=== PATIENT | male | born 1985 | race Caucasian/White ===

== ENCOUNTER 2019-10-06 14:15 | Inpatient (IN) | payer OTHER ==
--- NOTE | 2019-10-06 14:48 | BHS.RME ---
Substance Use & Tx History - Substance Use History Alcohol Substance amount: 2-3 pints beer Frequency of use: Daily Substance route: Oral Date of Last Use: 10/06/19 Cocaine-Crack Substance amount: $60 Frequency of use: Daily Substance route: Smoking Date of Last Use: 10/05/19 Xanax Substance amount: 4-6 mg Frequency of use: Daily Substance route: Oral Date of Last Use: 10/05/19 Physical/Psych/Mental Status - Behavior General Behavior: Increased activity (restlessness, agitation) Eye Contact: Normal - Cooperativeness Cooperativeness: Cooperative - Thinking Thought Processes: Tight, Logical, Goal Directed - Physical Health Problems Is patient presently having any pain?: No Does patient presently have any injuries (include location): No Does patient currently have a fever: No Is patient : No CIWA Nausea/Vomitin Muscle Tremors: 2 Anxiety: 4-Mod. Anxious/Guarded Agitation: 4-Moderately Restless Paroxysmal Sweats: 3 Orientation: 1-Uncertain about Date Tacttile Disturbances: 0-None Auditory Disturbances: 0-None Visual Disturbances: 0-None Headache: 2-Mild CIWA-Ar Total Score: 19
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
[2019-10-06 15:43] VITALS: BMI 32.6
[2019-10-06] MEDS ORDERED: METHOCARBAMOL 500 MG TABLET PO PRN (15:43)
[2019-10-06] MEDS ORDERED: NICOTINE POLACRILEX 2 MG GUM BUC PRN (15:43)
[2019-10-06] MEDS ORDERED: ACETAMINOPHEN 325 MG TABLET (FP) PO PRN ×2 (15:43)
[2019-10-06] MEDS ORDERED: BISMUTH SUBSALICYLATE 524 MG/30 ML UD PO PRN (15:43)
[2019-10-06] MEDS ORDERED: chlordiazePOXIDE HCL 25 MG CAPSULE PO PRN (15:43)
[2019-10-06] MEDS ORDERED: MAGNESIUM HYDROX 2400MG/30ML ORAL SUSPENSION 30 ML CUP PO PRN (15:43)
[2019-10-06] MEDS ORDERED: MENTHOL/PHENOL 1 EACH UD MM PRN (15:43)
[2019-10-06] MEDS ORDERED: MAGNESIUM CITRATE 300 ML BOTTLE PO PRN (15:43)
[2019-10-06] MEDS ORDERED: ONDANSETRON *ODT* 4 MG TABLET SL ONE (15:43)
[2019-10-06] MEDS: chlordiazePOXIDE HCL 25 MG CAPSULE PO SCH ×2 (17:28→22:20)
[2019-10-06] MEDS: PRENATAL VITAMINS W/ FOLIC ACID TABLET (FP) PO SCH (17:28)
[2019-10-06] MEDS: NICOTINE 7 MG/24 HOURS TOPICAL PATCH TD SCH (17:32)
[2019-10-06] MEDS: hydrOXYzine PAMOATE 25 MG CAPSULE (FP) PO SCH ×2 (18:10→22:43)
[2019-10-06] MEDS: ALBUTEROL SO4 HFA INHALER IH PRN (19:37)
[2019-10-06] MEDS: levETIRAcetam 500 MG TABLET (FP) PO SCH (22:20)
[2019-10-06] MEDS: DIVALPROEX SODIUM 500 MG TABLET E.C. PO SCH (22:20)
[2019-10-06] MEDS: MELATONIN 5 MG TABLETS PO SCH (22:20)
[2019-10-06] MEDS: THIAMINE HCL 100 MG TABLET (FP) PO SCH (22:20)
[2019-10-07] MEDS: hydrOXYzine PAMOATE 25 MG CAPSULE (FP) PO SCH (05:27)
[2019-10-07] MEDS: chlordiazePOXIDE HCL 25 MG CAPSULE PO SCH ×4 (05:27→22:12)
[2019-10-07] MEDS ORDERED: METHADONE HCL 10 MG TABLET PO ONE (09:02)
[2019-10-07] MEDS ORDERED: hydrOXYzine PAMOATE 25 MG CAPSULE (FP) PO PRN (09:02)
[2019-10-07] MEDS ORDERED: METHADONE 80 MG, METHADONE 30 MG PO ONE (09:45)
[2019-10-07] MEDS ORDERED: METHADONE HCL 10 MG TABLET ONE (09:58)
[2019-10-07] MEDS ORDERED: METHADONE HCL 40 MG DISPERSABLE TABLET ONE (09:59)
--- NOTE | 2019-10-07 10:27 | PN ---
S CIWA - CIWA Score Nausea/Vomitin-No Nausea/No Vomiting Muscle Tremors: 3 Anxiety: 3 Agitation: 3 Paroxysmal Sweats: 2 Orientation: 0-Oriented Tacttile Disturbances: 0-None Auditory Disturbances: 0-None Visual Disturbances: 0-None Headache: 0-None Present CIWA-Ar Total Score: 11 BHS Progress Note (SOAP) Subjective: sweats shakes interrupted sleep agitation restless diarrhea Objective: 10/07/19 10:25 Vital Signs Temperature 98.2 F 10/07/19 05:46 Pulse Rate 70 10/07/19 05:46 Respiratory Rate 18 10/07/19 05:46 Blood Pressure 113/84 10/07/19 05:46 O2 Sat by Pulse Oximetry (%) 96 10/07/19 05:46 Laboratory Tests 10/06/19 16:45 COVID-19 (ZULMA) Not detected rest of labs pending aaox3 ambulating no acute distress Assessment: 10/07/19 10:25 withdrawals sx Plan: continue detox increase fluids pepto prn
[2019-10-07] MEDS: DIVALPROEX SODIUM 500 MG TABLET E.C. PO SCH ×2 (10:49→22:13)
[2019-10-07] MEDS: PRENATAL VITAMINS W/ FOLIC ACID TABLET (FP) PO SCH (10:49)
[2019-10-07] MEDS: levETIRAcetam 500 MG TABLET (FP) PO SCH ×2 (10:49→22:13)
[2019-10-07] MEDS: NICOTINE 7 MG/24 HOURS TOPICAL PATCH TD SCH (10:49)
[2019-10-07] MEDS: ALBUTEROL SO4 HFA INHALER IH PRN ×2 (11:05→22:14)
[2019-10-07] MEDS: MAG HYDROX/AL HYDROX/SIMETH 30 ML UNIT-DOSE CUP PO PRN (11:06)
[2019-10-07 12:16] LABS: HEMATOCRIT 44.2 % (35.4-49); HEMOGLOBIN 14.5 GM/dL (11.7-16.9); MCHC 32.8 g/dl (32.0-35.9); MEAN CELL VOLUME 91.4 fl (80-96); MEAN PLT VOLUME 9.3 fl (7.5-11.1); PLATELET COUNT 200 K/MM3 (134-434); RBC 4.83 M/mm3 (4.00-5.60); RDW 14.1 % (11.9-15.9); WHITE BLOOD COUNT 8.9 K/mm3 (4.0-10.0)
[2019-10-07 12:24] LABS: ALBUMIN 3.5 g/dl (3.4-5.0); BILIRUBIN,TOTAL 0.9 mg/dL (0.2-1); BLOOD UREA NITROGEN 17.8 mg/dL (7-18); CALCIUM 8.8 mg/dL (8.5-10.1); CREATININE 0.8 mg/dL (0.55-1.3); POTASSIUM 4.2 mmol/L (3.5-5.1); TOT PROT 6.9 g/dl (6.4-8.2)
[2019-10-07] MEDS: THIAMINE HCL 100 MG TABLET (FP) PO SCH (22:12)
[2019-10-07] MEDS: MELATONIN 5 MG TABLETS PO SCH (22:13)
[2019-10-08] MEDS: ALBUTEROL SO4 HFA INHALER IH PRN ×2 (03:29→17:30)
[2019-10-08] MEDS ORDERED: METHADONE HCL 10 MG TABLET ONE (04:37)
[2019-10-08] MEDS ORDERED: METHADONE HCL 40 MG DISPERSABLE TABLET ONE (04:38)
[2019-10-08] MEDS: METHADONE 80 MG, METHADONE 30 MG PO SCH (05:56)
[2019-10-08] MEDS: chlordiazePOXIDE HCL 25 MG CAPSULE PO SCH ×4 (05:56→22:28)
[2019-10-08] MEDS ORDERED: METHADONE HCL 40 MG DISPERSABLE TABLET PO SCH (06:00)
[2019-10-08] MEDS ORDERED: levETIRAcetam 250 MG TABLET PO ONE (08:53)
[2019-10-08] MEDS: levETIRAcetam 500 MG TABLET (FP) PO SCH ×2 (10:40→22:29)
[2019-10-08] MEDS: NICOTINE 7 MG/24 HOURS TOPICAL PATCH TD SCH (10:40)
[2019-10-08] MEDS: PRENATAL VITAMINS W/ FOLIC ACID TABLET (FP) PO SCH (10:41)
[2019-10-08] MEDS: DIVALPROEX SODIUM 500 MG TABLET E.C. PO SCH ×2 (10:41→22:29)
[2019-10-08] MEDS: BACITRACIN 0.9 GM PACKET TP SCH ×2 (10:44→22:33)
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
[2019-10-08] MEDS: IBUPROFEN 400 MG TABLET (FP) PO PRN (13:43)
[2019-10-08] MEDS: ESCITALOPRAM OXALATE 20 MG TABLET PO SCH (13:43)
[2019-10-08] MEDS: busPIRone HCL 10 MG TABLET (FP) PO SCH ×2 (14:59→22:29)
[2019-10-08] MEDS: MAG HYDROX/AL HYDROX/SIMETH 30 ML UNIT-DOSE CUP PO PRN (18:54)
[2019-10-08] MEDS: MELATONIN 5 MG TABLETS PO SCH (22:30)
[2019-10-08] MEDS: THIAMINE HCL 100 MG TABLET (FP) PO SCH (22:33)
[2019-10-09] MEDS ORDERED: chlordiazePOXIDE HCL 10 MG CAPSULE PO PRN
[2019-10-09] MEDS ORDERED: METHADONE HCL 40 MG DISPERSABLE TABLET ONE (04:08)
[2019-10-09] MEDS ORDERED: METHADONE HCL 10 MG TABLET ONE (04:08)
[2019-10-09] MEDS: METHADONE 80 MG, METHADONE 30 MG PO SCH (06:22)
[2019-10-09] MEDS: chlordiazePOXIDE HCL 10 MG CAPSULE PO SCH ×4 (06:23→22:25)
[2019-10-09] MEDS: levETIRAcetam 500 MG TABLET (FP) PO SCH ×2 (10:35→22:25)
[2019-10-09] MEDS: BACITRACIN 0.9 GM PACKET TP SCH ×2 (10:35→22:27)
[2019-10-09] MEDS: ESCITALOPRAM OXALATE 20 MG TABLET PO SCH (10:35)
[2019-10-09] MEDS: DIVALPROEX SODIUM 500 MG TABLET E.C. PO SCH ×2 (10:35→22:25)
[2019-10-09] MEDS: busPIRone HCL 10 MG TABLET (FP) PO SCH ×2 (10:36→22:25)
[2019-10-09] MEDS: PRENATAL VITAMINS W/ FOLIC ACID TABLET (FP) PO SCH (10:36)
[2019-10-09] MEDS: NICOTINE 7 MG/24 HOURS TOPICAL PATCH TD SCH (10:36)
--- NOTE | 2019-10-09 11:04 | PN ---
S CIWA - CIWA Score Nausea/Vomitin-Mild Nausea/No Vomiting Muscle Tremors: 2 Anxiety: 1-Mildly Anxious Agitation: 1-Slight > Activity Paroxysmal Sweats: 1-Minimal Palms Moist Orientation: 0-Oriented Tacttile Disturbances: 0-None Auditory Disturbances: 0-None Visual Disturbances: 0-None Headache: 1-Very Mild CIWA-Ar Total Score: 7 BHS Progress Note (SOAP) Subjective: pt admitted for alcohol use, h/o polysubstance use. On opioid agonist treatment O: Vital Signs - 24 hr 10/08/19 10/08/19 10/08/19 13:15 16:51 20:40 Temperature 97.7 F 97.7 F 97.7 F Pulse Rate 66 71 72 Respiratory 16 19 18 Rate Blood Pressure 109/63 121/88 113/78 O2 Sat by Pulse 97 96 Oximetry (%) 10/09/19 10/09/19 06:35 08:29 Temperature 97.5 F L 97.9 F Pulse Rate 63 72 Respiratory 18 16 Rate Blood Pressure 123/74 122/78 O2 Sat by Pulse 96 Oximetry (%) Laboratory Tests 10/06/19 10/07/19 10/07/19 16:45 08:30 08:30 WBC 8.9 RBC 4.83 Hgb 14.5 Hct 44.2 MCV 91.4 MCH 30.0 MCHC 32.8 RDW 14.1 Plt Count 200 MPV 9.3 D Sodium 139 Potassium 4.2 Chloride 103 Carbon Dioxide 25 Anion Gap 10 BUN 17.8 Creatinine 0.8 Est GFR (CKD-EPI)AfAm 133.20 Est GFR (CKD-EPI)NonAf 114.93 Random Glucose 114 H Calcium 8.8 Total Bilirubin 0.9 AST 21 ALT 27 Alkaline Phosphatase 104 Total Protein 6.9 Albumin 3.5 Syphilis Serology COVID-19 (ZULMA) Not detected HIV Ag/Ab Combo Qual 10/07/19 10/07/19 08:30 08:30 WBC RBC Hgb Hct MCV MCH MCHC RDW Plt Count MPV Sodium Potassium Chloride Carbon Dioxide Anion Gap BUN Creatinine Est GFR (CKD-EPI)AfAm Est GFR (CKD-EPI)NonAf Random Glucose Calcium Total Bilirubin AST ALT Alkaline Phosphatase Total Protein Albumin Syphilis Serology Non-reactive COVID-19 (ZULMA) HIV Ag/Ab Combo Qual Negative a/p: AUD- continue detox protocol labs WNL continue opioid agonsit treatment.
[2019-10-09] MEDS: IBUPROFEN 400 MG TABLET (FP) PO PRN (11:44)
[2019-10-09] MEDS: MAG HYDROX/AL HYDROX/SIMETH 30 ML UNIT-DOSE CUP PO PRN (16:59)
[2019-10-09] MEDS: MELATONIN 5 MG TABLETS PO SCH (22:25)
[2019-10-09] MEDS: THIAMINE HCL 100 MG TABLET (FP) PO SCH (22:25)
[2019-10-10] MEDS ORDERED: METHADONE HCL 10 MG TABLET ONE (03:19)
[2019-10-10] MEDS ORDERED: METHADONE HCL 40 MG DISPERSABLE TABLET ONE (03:19)
[2019-10-10] MEDS: METHADONE 80 MG, METHADONE 30 MG PO SCH (05:34)
[2019-10-10] MEDS: chlordiazePOXIDE HCL 10 MG CAPSULE PO SCH ×2 (05:35→17:23)
[2019-10-10] MEDS: NICOTINE 7 MG/24 HOURS TOPICAL PATCH TD SCH (10:19)
[2019-10-10] MEDS: levETIRAcetam 500 MG TABLET (FP) PO SCH ×2 (10:19→22:01)
[2019-10-10] MEDS: DIVALPROEX SODIUM 500 MG TABLET E.C. PO SCH ×2 (10:20→22:01)
[2019-10-10] MEDS: busPIRone HCL 10 MG TABLET (FP) PO SCH ×2 (10:20→22:01)
[2019-10-10] MEDS: ESCITALOPRAM OXALATE 20 MG TABLET PO SCH (10:20)
[2019-10-10] MEDS: BACITRACIN 0.9 GM PACKET TP SCH ×2 (10:20→22:02)
[2019-10-10] MEDS: PRENATAL VITAMINS W/ FOLIC ACID TABLET (FP) PO SCH (10:20)
[2019-10-10] MEDS: IBUPROFEN 400 MG TABLET (FP) PO PRN ×2 (11:08→19:40)
[2019-10-10] MEDS ORDERED: FAMOTIDINE 20 MG TABLET PO SCH (11:30)
--- NOTE | 2019-10-10 12:41 | PN ---
[facility] CIWA - CIWA Score Nausea/Vomitin-No Nausea/No Vomiting Muscle Tremors: None Anxiety: 2 Agitation: 2 Paroxysmal Sweats: 1-Minimal Palms Moist Orientation: 0-Oriented Tacttile Disturbances: 0-None Auditory Disturbances: 0-None Visual Disturbances: 0-None Headache: 0-None Present CIWA-Ar Total Score: 5 BHS Progress Note (SOAP) Subjective: Complaints of mild anxiety, agitation and sweats. Objective: 10/10/19 12:40 Vital Signs 10/10/19 10/10/19 05:17 08:53 Temperature 98.7 F 97.5 F L Pulse Rate 64 86 Respiratory 16 19 Rate Blood Pressure 113/75 138/84 O2 Sat by Pulse 99 Oximetry (%) Laboratory Last Values WBC 8.9 K/mm3 (4.0-10.0) 10/07/19 08:30 RBC 4.83 M/mm3 (4.00-5.60) 10/07/19 08:30 Hgb 14.5 GM/dL (11.7-16.9) 10/07/19 08:30 Hct 44.2 % (35.4-49) 10/07/19 08:30 MCV 91.4 fl (80-96) 10/07/19 08:30 MCH 30.0 pg (25.7-33.7) 10/07/19 08:30 MCHC 32.8 g/dl (32.0-35.9) 10/07/19 08:30 RDW 14.1 % (11.9-15.9) 10/07/19 08:30 Plt Count 200 K/MM3 (134-434) 10/07/19 08:30 MPV 9.3 fl (7.5-11.1) D 10/07/19 08:30 Sodium 139 mmol/L (136-145) 10/07/19 08:30 Potassium 4.2 mmol/L (3.5-5.1) 10/07/19 08:30 Chloride 103 mmol/L (98-107) 10/07/19 08:30 Carbon Dioxide 25 mmol/L (21-32) 10/07/19 08:30 Anion Gap 10 MMOL/L (8-16) 10/07/19 08:30 BUN 17.8 mg/dL (7-18) 10/07/19 08:30 Creatinine 0.8 mg/dL (0.55-1.3) 10/07/19 08:30 Est GFR (CKD-EPI)AfAm 133.20 10/07/19 08:30 Est GFR (CKD-EPI)NonAf 114.93 10/07/19 08:30 Random Glucose 114 mg/dL (74-106) H 10/07/19 08:30 Calcium 8.8 mg/dL (8.5-10.1) 10/07/19 08:30 Total Bilirubin 0.9 mg/dL (0.2-1) 10/07/19 08:30 AST 21 U/L (15-37) 10/07/19 08:30 ALT 27 U/L (13-61) 10/07/19 08:30 Alkaline Phosphatase 104 U/L (45-117) 10/07/19 08:30 Total Protein 6.9 g/dl (6.4-8.2) 10/07/19 08:30 Albumin 3.5 g/dl (3.4-5.0) 10/07/19 08:30 Syphilis Serology Non-reactive (NONREACTIVE) 10/07/19 08:30 COVID-19 (ZULMA) Not detected (Not Detected) 10/06/19 16:45 HIV Ag/Ab Combo Qual Negative (NEGATIVE) 10/07/19 08:30 Labs noted Assessment: 10/10/19 12:40 Alert and oriented x 3, in no acute respiratory distress. Full ROM, ambulating in the unit without assistance. Mild withdrawal symptoms. For discharge in AM. Plan: Continue detox protocol. Discharge in AM.
[2019-10-10] MEDS: MAG HYDROX/AL HYDROX/SIMETH 30 ML UNIT-DOSE CUP PO PRN (16:51)
[2019-10-10] MEDS: THIAMINE HCL 100 MG TABLET (FP) PO SCH (22:02)
[2019-10-10] MEDS: MELATONIN 5 MG TABLETS PO SCH (22:02)
[2019-10-11] MEDS ORDERED: METHADONE HCL 10 MG TABLET ONE (04:17)
[2019-10-11] MEDS ORDERED: METHADONE HCL 40 MG DISPERSABLE TABLET ONE (04:18)
[2019-10-11] MEDS: IBUPROFEN 400 MG TABLET (FP) PO PRN (04:51)
[2019-10-11] MEDS ORDERED: chlordiazePOXIDE HCL 10 MG CAPSULE PO ONE (05:00)
[2019-10-11] MEDS: METHADONE 80 MG, METHADONE 30 MG PO SCH (05:40)
[2019-10-11 06:24] VITALS: BP 120/75; PULSE 61; TEMP 97.5
--- NOTE | 2019-10-11 10:44 | DS ---
[facility] Detox Discharge Summary Admission Date: 10/06/19 Discharge Date: 10/11/19 - History Present History: Alcohol Dependence, Cocaine Dependence, Sedative Dependence, MMTP Additional Comments: Patient was seen and examined at bedside. Alert and oriented x 3, in no acute respiratory distress. Skin warm to touch. Full ROM, ambulatory without assistance. Detox protocol completed, stable for discharge today. Pertinent Past History: History of asthma, epilepsy, alcohol, cocaine, sedative and nicotine use disorder. - Physical Exam Results Vital Signs: Vital Signs Temperature 97.5 F L 10/11/19 04:49 Pulse Rate 61 10/11/19 04:49 Respiratory Rate 16 10/11/19 04:49 Blood Pressure 120/75 10/11/19 04:49 O2 Sat by Pulse Oximetry (%) 99 10/11/19 04:49 Vital Signs 10/11/19 04:49 Temperature 97.5 F L Pulse Rate 61 Respiratory 16 Rate Blood Pressure 120/75 O2 Sat by Pulse 99 Oximetry (%) Laboratory Last Values WBC 8.9 K/mm3 (4.0-10.0) 10/07/19 08:30 RBC 4.83 M/mm3 (4.00-5.60) 10/07/19 08:30 Hgb 14.5 GM/dL (11.7-16.9) 10/07/19 08:30 Hct 44.2 % (35.4-49) 10/07/19 08:30 MCV 91.4 fl (80-96) 10/07/19 08:30 MCH 30.0 pg (25.7-33.7) 10/07/19 08:30 MCHC 32.8 g/dl (32.0-35.9) 10/07/19 08:30 RDW 14.1 % (11.9-15.9) 10/07/19 08:30 Plt Count 200 K/MM3 (134-434) 10/07/19 08:30 MPV 9.3 fl (7.5-11.1) D 10/07/19 08:30 Sodium 139 mmol/L (136-145) 10/07/19 08:30 Potassium 4.2 mmol/L (3.5-5.1) 10/07/19 08:30 Chloride 103 mmol/L (98-107) 10/07/19 08:30 Carbon Dioxide 25 mmol/L (21-32) 10/07/19 08:30 Anion Gap 10 MMOL/L (8-16) 10/07/19 08:30 BUN 17.8 mg/dL (7-18) 10/07/19 08:30 Creatinine 0.8 mg/dL (0.55-1.3) 10/07/19 08:30 Est GFR (CKD-EPI)AfAm 133.20 10/07/19 08:30 Est GFR (CKD-EPI)NonAf 114.93 10/07/19 08:30 Random Glucose 114 mg/dL (74-106) H 10/07/19 08:30 Calcium 8.8 mg/dL (8.5-10.1) 10/07/19 08:30 Total Bilirubin 0.9 mg/dL (0.2-1) 10/07/19 08:30 AST 21 U/L (15-37) 10/07/19 08:30 ALT 27 U/L (13-61) 10/07/19 08:30 Alkaline Phosphatase 104 U/L (45-117) 10/07/19 08:30 Total Protein 6.9 g/dl (6.4-8.2) 10/07/19 08:30 Albumin 3.5 g/dl (3.4-5.0) 10/07/19 08:30 Syphilis Serology Non-reactive (NONREACTIVE) 10/07/19 08:30 COVID-19 (ZULMA) Not detected (Not Detected) 10/06/19 16:45 HIV Ag/Ab Combo Qual Negative (NEGATIVE) 10/07/19 08:30 Labs noted. Pertinent Admission Physical Exam Findings: Withdrawal symptoms - Treatment Hospital Course: Detox Protocol Followed, Detoxed Safely, Responded well, Discharged Condition Good - Medication Discharge Medications: Ambulatory Orders Albuterol Sulfate Inhaler - [Ventolin HFA Inhaler -] 2 inh IH Q4H PRN 08/13/11 Divalproex [Depakote -] 500 mg PO BID 08/13/11 Levetiracetam [Keppra] 1,000 mg PO DAILY 08/13/11 Buspirone HCl [Buspar -] 10 mg PO BID 10/06/19 Escitalopram Oxalate [Lexapro -] 20 mg PO DAILY 10/06/19 Levetiracetam 1,500 mg PO HS 10/06/19 Famotidine [Pepcid] 20 mg PO DAILY 30 Days #30 tablet 10/10/19 - Diagnosis (1) Alcohol dependence with withdrawal Current Visit: Yes Status: Acute (2) Epilepsy Current Visit: Yes Status: Chronic (3) Sedative dependence Current Visit: Yes Status: Chronic (4) Nicotine dependence Current Visit: Yes Status: Chronic (5) Alcohol dependence Current Visit: No Status: Chronic - AMA Did Patient Leave Against Medical Advice: No
== END 2019-10-11 09:11 | disposition home or self-care (01) | DRG 773 ==
LOC: YASAS 14:15 → Y6N 16:41
PROVIDERS: ADMIT Allergy & Immunology; ATTEND Allergy & Immunology
PROC: HZ2ZZZZ Detoxification Services for Substance Abuse Treatment (ICD-10-PCS; principal; 2019-10-06)
DX: F10.230 Alcohol dependence with withdrawal, uncomplicated (principal); F11.20 Opioid dependence, uncomplicated; F14.20 Cocaine dependence, uncomplicated; F13.20 Sedative, hypnotic or anxiolytic dependence, uncomplicated; F17.210 Nicotine dependence, cigarettes, uncomplicated; F19.280 Other psychoactive substance dependence with psychoactive substance-induced anxiety disorder; F19.282 Other psychoactive substance dependence with psychoactive substance-induced sleep disorder; F32.9 Major depressive disorder, single episode, unspecified; F41.9 Anxiety disorder, unspecified; G40.909 Epilepsy, unspecified, not intractable, without status epilepticus; J45.909 Unspecified asthma, uncomplicated; Z88.0 Allergy status to penicillin; Z56.0 Unemployment, unspecified
CPT/HCPCS: 36415; 80053; 85027; 86780; 87389; Q0162; U0003

== ENCOUNTER 2020-02-24 11:16 | Inpatient (IN) | payer OTHER ==
[2020-02-24 12:16] VITALS: BMI 34.4
[2020-02-24] MEDS ORDERED: ONDANSETRON *ODT* 4 MG TABLET SL PRN (13:04)
[2020-02-24] MEDS ORDERED: MAGNESIUM CITRATE 300 ML BOTTLE PO PRN (13:04)
[2020-02-24] MEDS ORDERED: ACETAMINOPHEN 325 MG TABLET (FP) PO PRN (13:04)
[2020-02-24] MEDS ORDERED: MAG HYDROX/AL HYDROX/SIMETH 30 ML UNIT-DOSE CUP PO PRN (13:04)
[2020-02-24] MEDS ORDERED: MENTHOL/PHENOL 1 EACH UD MM PRN (13:04)
[2020-02-24] MEDS ORDERED: BISMUTH SUBSALICYLATE 262 MG/15 ML BTL PO PRN (13:04)
[2020-02-24] MEDS ORDERED: NICOTINE POLACRILEX 2 MG GUM BUC PRN (13:04)
[2020-02-24] MEDS ORDERED: MAGNESIUM HYDROX 2400MG/30ML ORAL SUSPENSION 30 ML CUP PO PRN (13:04)
[2020-02-24] MEDS ORDERED: FAMOTIDINE 10 MG TABLET PO SCH (13:15)
[2020-02-24] MEDS: PRENATAL VITAMINS W/ FOLIC ACID TABLET (FP) PO SCH (13:55)
[2020-02-24] MEDS: hydrOXYzine PAMOATE 25 MG CAPSULE (FP) PO SCH ×3 (13:55→21:01)
[2020-02-24] MEDS: NICOTINE 14 MG/24 HOURS TOPICAL PATCH TD SCH (13:55)
[2020-02-24] MEDS: diazePAM 5 MG TABLET PO PRN ×2 (13:55→20:56)
[2020-02-24] MEDS: IBUPROFEN 400 MG TABLET (FP) PO PRN (16:40)
[2020-02-24] MEDS: METHOCARBAMOL 500 MG TABLET PO PRN (16:40)
[2020-02-24 17:10] LABS: HEMOGLOBIN 10.9 GM/dL (11.7-16.9); MCH 29.6 pg (25.7-33.7); MCHC 33.1 g/dl (32.0-35.9); MEAN CELL VOLUME 89.3 fl (80-96); PLATELET COUNT 221 K/MM3 (134-434); RBC 3.69 M/mm3 (4.00-5.60); RDW 13.8 % (11.9-15.9); WHITE BLOOD COUNT 13.2 K/mm3 (4.0-10.0)
[2020-02-24] MEDS: diazePAM 5 MG TABLET PO SCH ×2 (17:20→22:16)
[2020-02-24 17:35] LABS: CALCIUM 9.3 mg/dL (8.5-10.1)
[2020-02-24 17:36] LABS: ALBUMIN 3.9 g/dl (3.4-5.0); BLOOD UREA NITROGEN 26.9 mg/dL (7-18)
[2020-02-24 17:39] LABS: CREATININE 0.9 mg/dL (0.55-1.3)
[2020-02-24 17:40] LABS: BILIRUBIN,TOTAL 0.5 mg/dL (0.2-1); TOT PROT 7.4 g/dl (6.4-8.2)
[2020-02-24] MEDS: ACETAMINOPHEN 325 MG TABLET (FP) PO PRN (20:56)
[2020-02-24] MEDS: THIAMINE HCL 100 MG TABLET (FP) PO SCH (21:01)
[2020-02-24] MEDS: MELATONIN 5 MG TABLETS PO SCH (22:15)
[2020-02-25] MEDS: diazePAM 5 MG TABLET PO SCH ×4 (05:23→22:06)
[2020-02-25] MEDS: hydrOXYzine PAMOATE 25 MG CAPSULE (FP) PO SCH ×5 (05:24→21:59)
[2020-02-25] MEDS: diazePAM 5 MG TABLET PO PRN ×3 (07:32→20:16)
[2020-02-25] MEDS: METHOCARBAMOL 500 MG TABLET PO PRN ×2 (07:34→13:34)
[2020-02-25] MEDS ORDERED: methaDONE HCL 10 MG TABLET PO SCH (07:45)
[2020-02-25] MEDS: FAMOTIDINE 20 MG TABLET PO SCH (07:53)
[2020-02-25] MEDS ORDERED: methaDONE HCL 40 MG DISPERSABLE TABLET ONE (07:55)
[2020-02-25] MEDS ORDERED: methaDONE HCL 10 MG TABLET ONE (07:55)
[2020-02-25] MEDS: IBUPROFEN 400 MG TABLET (FP) PO PRN (09:22)
[2020-02-25] MEDS ORDERED: FAMOTIDINE 20 MG TABLET PO SCH (10:00)
[2020-02-25] MEDS ORDERED: ESCITALOPRAM OXALATE 10 MG TABLET ONE (10:35)
[2020-02-25] MEDS: levETIRAcetam 500 MG TABLET (FP) PO SCH ×2 (10:42→22:06)
[2020-02-25] MEDS: DIVALPROEX SODIUM 500 MG TABLET E.C. PO SCH ×2 (10:43→21:57)
[2020-02-25] MEDS: busPIRone HCL 10 MG TABLET (FP) PO SCH ×2 (10:43→21:57)
[2020-02-25] MEDS: NICOTINE 14 MG/24 HOURS TOPICAL PATCH TD SCH (10:44)
[2020-02-25] MEDS: PRENATAL VITAMINS W/ FOLIC ACID TABLET (FP) PO SCH (10:44)
[2020-02-25] MEDS ORDERED: levETIRAcetam 500 MG TABLET (FP) PO SCH (10:45)
[2020-02-25] MEDS: ALBUTEROL SO4 HFA INHALER IH PRN ×2 (10:45→16:55)
[2020-02-25] MEDS: ACETAMINOPHEN 325 MG TABLET (FP) PO PRN ×2 (10:46→20:16)
[2020-02-25] MEDS: ESCITALOPRAM OXALATE 20 MG TABLET PO SCH (11:37)
[2020-02-25] MEDS ORDERED: SILVER SULFADIAZINE 1% TOP CREAM 50 GM JAR TP ONE (12:32)
[2020-02-25] MEDS: MELATONIN 5 MG TABLETS PO SCH (21:57)
[2020-02-25] MEDS: THIAMINE HCL 100 MG TABLET (FP) PO SCH (21:57)
[2020-02-26] MEDS ORDERED: methaDONE HCL 10 MG TABLET ONE (04:15)
[2020-02-26] MEDS ORDERED: methaDONE HCL 40 MG DISPERSABLE TABLET ONE (04:15)
[2020-02-26] MEDS: METHOCARBAMOL 500 MG TABLET PO PRN ×3 (04:25→17:10)
[2020-02-26] MEDS: IBUPROFEN 400 MG TABLET (FP) PO PRN (04:57)
[2020-02-26] MEDS: hydrOXYzine PAMOATE 25 MG CAPSULE (FP) PO SCH ×5 (05:45→22:07)
[2020-02-26] MEDS: diazePAM 5 MG TABLET PO SCH ×3 (05:45→22:06)
[2020-02-26] MEDS: diazePAM 5 MG TABLET PO PRN ×3 (07:37→17:10)
[2020-02-26] MEDS: FAMOTIDINE 20 MG TABLET PO SCH (08:00)
[2020-02-26] MEDS: SILVER SULFADIAZINE 1% TOP CREAM 50 GM JAR TP SCH (09:16)
[2020-02-26] MEDS: PRENATAL VITAMINS W/ FOLIC ACID TABLET (FP) PO SCH (09:16)
[2020-02-26] MEDS: busPIRone HCL 10 MG TABLET (FP) PO SCH ×2 (09:17→22:05)
[2020-02-26] MEDS: levETIRAcetam 500 MG TABLET (FP) PO SCH ×2 (09:17→22:05)
[2020-02-26] MEDS: ESCITALOPRAM OXALATE 20 MG TABLET PO SCH (09:17)
[2020-02-26] MEDS: NICOTINE 14 MG/24 HOURS TOPICAL PATCH TD SCH (09:17)
[2020-02-26] MEDS: DIVALPROEX SODIUM 500 MG TABLET E.C. PO SCH ×2 (09:17→22:05)
[2020-02-26] MEDS: BACITRACIN 0.9 GM PACKET TP SCH ×2 (10:28→22:04)
[2020-02-26 11:44] LABS: BASO % 0.3 % (0-2.0); EOS % 3.1 % (0-4.5); HEMATOCRIT 34.2 % (35.4-49); HEMOGLOBIN 11.2 GM/dL (11.7-16.9); LYMPH % 45.7 % (8-40); MCH 29.4 pg (25.7-33.7); MCHC 32.7 g/dl (32.0-35.9); MEAN CELL VOLUME 89.9 fl (80-96); MEAN PLT VOLUME 11.6 fl (7.5-11.1); MONO % 8.8 % (3.8-10.2); NEUT % 42.1 % (42.8-82.8); PLATELET COUNT 216 K/MM3 (134-434); WHITE BLOOD COUNT 6.1 K/mm3 (4.0-10.0)
[2020-02-26] MEDS: ALBUTEROL SO4 HFA INHALER IH PRN (15:13)
[2020-02-26] MEDS: MELATONIN 5 MG TABLETS PO SCH (22:06)
[2020-02-26] MEDS: THIAMINE HCL 100 MG TABLET (FP) PO SCH (22:07)
[2020-02-26] MEDS: SUVOREXANT 10 MG TABLET PO PRN (22:07)
[2020-02-27] MEDS ORDERED: methaDONE HCL 10 MG TABLET ONE (04:19)
[2020-02-27] MEDS ORDERED: methaDONE HCL 40 MG DISPERSABLE TABLET ONE (04:20)
[2020-02-27] MEDS: hydrOXYzine PAMOATE 25 MG CAPSULE (FP) PO SCH ×5 (05:26→21:16)
[2020-02-27] MEDS: diazePAM 5 MG TABLET PO SCH ×2 (05:26→17:19)
[2020-02-27] MEDS: METHOCARBAMOL 500 MG TABLET PO PRN ×2 (05:27→12:03)
[2020-02-27] MEDS: FAMOTIDINE 20 MG TABLET PO SCH (06:06)
[2020-02-27] MEDS ORDERED: ESCITALOPRAM OXALATE 10 MG TABLET ONE (08:56)
[2020-02-27] MEDS: diazePAM 5 MG TABLET PO PRN (09:29)
[2020-02-27] MEDS: BACITRACIN 0.9 GM PACKET TP SCH ×2 (09:29→21:16)
[2020-02-27] MEDS: busPIRone HCL 10 MG TABLET (FP) PO SCH ×2 (09:29→21:16)
[2020-02-27] MEDS: PRENATAL VITAMINS W/ FOLIC ACID TABLET (FP) PO SCH (09:29)
[2020-02-27] MEDS: DIVALPROEX SODIUM 500 MG TABLET E.C. PO SCH ×2 (09:30→21:16)
[2020-02-27] MEDS: ESCITALOPRAM OXALATE 20 MG TABLET PO SCH (09:30)
[2020-02-27] MEDS: NICOTINE 14 MG/24 HOURS TOPICAL PATCH TD SCH (09:30)
[2020-02-27] MEDS: levETIRAcetam 500 MG TABLET (FP) PO SCH ×2 (09:30→21:16)
[2020-02-27] MEDS: SILVER SULFADIAZINE 1% TOP CREAM 50 GM JAR TP SCH (09:31)
[2020-02-27] MEDS: ACETAMINOPHEN 325 MG TABLET (FP) PO PRN (09:34)
[2020-02-27] MEDS: MELATONIN 5 MG TABLETS PO SCH (21:16)
[2020-02-27] MEDS: THIAMINE HCL 100 MG TABLET (FP) PO SCH (21:16)
[2020-02-27] MEDS: SUVOREXANT 10 MG TABLET PO PRN (21:23)
[2020-02-28] MEDS ORDERED: methaDONE HCL 10 MG TABLET ONE (04:23)
[2020-02-28] MEDS ORDERED: methaDONE HCL 40 MG DISPERSABLE TABLET ONE (04:24)
[2020-02-28] MEDS: hydrOXYzine PAMOATE 25 MG CAPSULE (FP) PO SCH ×2 (05:33→09:02)
[2020-02-28] MEDS ORDERED: diazePAM 5 MG TABLET PO ONE (06:00)
[2020-02-28] MEDS: METHOCARBAMOL 500 MG TABLET PO PRN ×2 (06:15→12:21)
[2020-02-28] MEDS: ACETAMINOPHEN 325 MG TABLET (FP) PO PRN (06:16)
[2020-02-28] MEDS: FAMOTIDINE 20 MG TABLET PO SCH (06:18)
[2020-02-28] MEDS ORDERED: ESCITALOPRAM OXALATE 10 MG TABLET ONE (08:34)
[2020-02-28] MEDS: busPIRone HCL 10 MG TABLET (FP) PO SCH (09:02)
[2020-02-28] MEDS: levETIRAcetam 500 MG TABLET (FP) PO SCH (09:02)
[2020-02-28] MEDS: PRENATAL VITAMINS W/ FOLIC ACID TABLET (FP) PO SCH (09:02)
[2020-02-28] MEDS: NICOTINE 14 MG/24 HOURS TOPICAL PATCH TD SCH (09:03)
[2020-02-28] MEDS: ESCITALOPRAM OXALATE 20 MG TABLET PO SCH (09:03)
[2020-02-28] MEDS: DIVALPROEX SODIUM 500 MG TABLET E.C. PO SCH (09:03)
[2020-02-28] MEDS: BACITRACIN 0.9 GM PACKET TP SCH (09:03)
[2020-02-28] MEDS: IBUPROFEN 400 MG TABLET (FP) PO PRN (09:03)
[2020-02-28] MEDS: SILVER SULFADIAZINE 1% TOP CREAM 50 GM JAR TP SCH (09:03)
[2020-02-28 09:42] VITALS: BP 116/78; PULSE 78; TEMP 97.3
[2020-02-28] MEDS: ALBUTEROL SO4 HFA INHALER IH PRN (12:33)
== END 2020-02-28 12:45 | disposition other institution (70) | DRG 773 ==
LOC: YASAS 11:16 → Y3N 13:06
PROVIDERS: ADMIT Allergy & Immunology; ATTEND Allergy & Immunology
PROC: HZ2ZZZZ Detoxification Services for Substance Abuse Treatment (ICD-10-PCS; principal; 2020-02-24)
DX: F11.23 Opioid dependence with withdrawal (principal); F14.20 Cocaine dependence, uncomplicated; F13.20 Sedative, hypnotic or anxiolytic dependence, uncomplicated; F17.210 Nicotine dependence, cigarettes, uncomplicated; F32.9 Major depressive disorder, single episode, unspecified; G40.909 Epilepsy, unspecified, not intractable, without status epilepticus; J45.909 Unspecified asthma, uncomplicated; K21.9 Gastro-esophageal reflux disease without esophagitis; R74.01 Elevation of levels of liver transaminase levels; R79.89 Other specified abnormal findings of blood chemistry; R63.5 Abnormal weight gain; Z68.34 Body mass index [BMI] 34.0-34.9, adult; Z88.0 Allergy status to penicillin
CPT/HCPCS: 36415; 80053; 80164; 80177; 84520; 85025; 85027; 86780; C9803; U0003

== ENCOUNTER 2020-02-28 12:50 | Inpatient (IN) | payer OTHER ==
[2020-02-28] MEDS ORDERED: MAGNESIUM CITRATE 300 ML BOTTLE PO PRN (14:27)
[2020-02-28] MEDS ORDERED: MAGNESIUM HYDROX 2400MG/30ML ORAL SUSPENSION 30 ML CUP PO PRN (14:27)
[2020-02-28] MEDS ORDERED: guaiFENesin 200 MG/10 ML 10 ML UNIT-DOSE CUPS PO PRN (14:27)
[2020-02-28] MEDS ORDERED: LOPERAMIDE HCL 2 MG CAPSULE PO PRN (14:27)
[2020-02-28] MEDS ORDERED: MENTHOL/PHENOL 1 EACH UD MM PRN (14:27)
[2020-02-28] MEDS ORDERED: P-EPHED 60MG/TRIPROLIDI 2.5MG TABLET PO PRN (14:27)
[2020-02-28] MEDS ORDERED: SUVOREXANT 10 MG TABLET PO PRN (14:33)
[2020-02-28] MEDS: MAG HYDROX/AL HYDROX/SIMETH 30 ML UNIT-DOSE CUP PO PRN (19:07)
[2020-02-28] MEDS: THIAMINE HCL 100 MG TABLET (FP) PO SCH (21:38)
[2020-02-28] MEDS: BACITRACIN 0.9 GM PACKET TP SCH (21:38)
[2020-02-28] MEDS: DIVALPROEX SODIUM 500 MG TABLET E.C. PO SCH (21:38)
[2020-02-28] MEDS: busPIRone HCL 10 MG TABLET (FP) PO SCH (21:38)
[2020-02-28] MEDS: SUVOREXANT 10 MG TABLET PO PRN (21:38)
[2020-02-28] MEDS: hydrOXYzine PAMOATE 25 MG CAPSULE (FP) PO PRN (21:38)
[2020-02-28] MEDS: levETIRAcetam 500 MG TABLET (FP) PO SCH (21:38)
[2020-02-28] MEDS: MELATONIN 5 MG TABLETS PO SCH (21:39)
[2020-02-29] MEDS ORDERED: METHADONE HCL 5 MG TABLET ONE (04:15)
[2020-02-29] MEDS ORDERED: METHADONE HCL 40 MG DISPERSABLE TABLET ONE (04:16)
[2020-02-29] MEDS ORDERED: METHADONE HCL 10 MG TABLET ONE (04:16)
[2020-02-29] MEDS ORDERED: METHADONE HCL 10 MG TABLET PO SCH (06:00)
[2020-02-29] MEDS: hydrOXYzine PAMOATE 25 MG CAPSULE (FP) PO PRN ×3 (06:10→21:09)
[2020-02-29] MEDS: METHADONE 80 MG, METHADONE 30 MG, METHADONE 5 MG PO SCH (06:10)
[2020-02-29] MEDS: IBUPROFEN 400 MG TABLET (FP) PO PRN ×2 (06:11→21:10)
[2020-02-29] MEDS: levETIRAcetam 500 MG TABLET (FP) PO SCH ×2 (10:16→21:09)
[2020-02-29] MEDS: DIVALPROEX SODIUM 500 MG TABLET E.C. PO SCH ×2 (10:16→21:09)
[2020-02-29] MEDS: PRENATAL VITAMINS W/ FOLIC ACID TABLET (FP) PO SCH (10:16)
[2020-02-29] MEDS: FAMOTIDINE 20 MG TABLET PO SCH (10:17)
[2020-02-29] MEDS: BACITRACIN 0.9 GM PACKET TP SCH ×2 (10:17→21:09)
[2020-02-29] MEDS: ESCITALOPRAM OXALATE 20 MG TABLET PO SCH (10:17)
[2020-02-29] MEDS: busPIRone HCL 10 MG TABLET (FP) PO SCH ×2 (10:17→21:09)
[2020-02-29] MEDS: NICOTINE 14 MG/24 HOURS TOPICAL PATCH TD SCH (10:18)
[2020-02-29] MEDS: SILVER SULFADIAZINE 1% TOP CREAM 50 GM JAR TP SCH (10:20)
[2020-02-29] MEDS: ALBUTEROL SO4 HFA INHALER IH PRN ×2 (12:17→21:09)
[2020-02-29] MEDS: METHOCARBAMOL 500 MG TABLET PO PRN ×2 (12:18→21:09)
[2020-02-29] MEDS ORDERED: METHOCARBAMOL 500 MG TABLET PO SCH (14:00)
[2020-02-29] MEDS: SUVOREXANT 10 MG TABLET PO PRN (21:09)
[2020-02-29] MEDS: MELATONIN 5 MG TABLETS PO SCH (21:09)
[2020-02-29] MEDS: THIAMINE HCL 100 MG TABLET (FP) PO SCH (21:09)
[2020-03-01] MEDS ORDERED: METHADONE HCL 5 MG TABLET ONE (03:25)
[2020-03-01] MEDS ORDERED: METHADONE HCL 40 MG DISPERSABLE TABLET ONE (03:25)
[2020-03-01] MEDS ORDERED: METHADONE HCL 10 MG TABLET ONE (03:25)
[2020-03-01] MEDS: METHADONE 80 MG, METHADONE 30 MG, METHADONE 5 MG PO SCH (06:00)
[2020-03-01] MEDS: IBUPROFEN 400 MG TABLET (FP) PO PRN (06:01)
[2020-03-01] MEDS: METHOCARBAMOL 500 MG TABLET PO PRN ×2 (06:01→20:13)
[2020-03-01] MEDS: hydrOXYzine PAMOATE 25 MG CAPSULE (FP) PO PRN ×2 (06:02→10:01)
[2020-03-01] MEDS: busPIRone HCL 10 MG TABLET (FP) PO SCH (09:58)
[2020-03-01] MEDS: BACITRACIN 0.9 GM PACKET TP SCH ×2 (09:58→21:53)
[2020-03-01] MEDS: levETIRAcetam 500 MG TABLET (FP) PO SCH ×2 (09:58→21:52)
[2020-03-01] MEDS: ESCITALOPRAM OXALATE 20 MG TABLET PO SCH (09:58)
[2020-03-01] MEDS: DIVALPROEX SODIUM 500 MG TABLET E.C. PO SCH ×2 (09:58→21:52)
[2020-03-01] MEDS: PRENATAL VITAMINS W/ FOLIC ACID TABLET (FP) PO SCH (09:59)
[2020-03-01] MEDS: SILVER SULFADIAZINE 1% TOP CREAM 50 GM JAR TP SCH (09:59)
[2020-03-01] MEDS: NICOTINE 14 MG/24 HOURS TOPICAL PATCH TD SCH (09:59)
[2020-03-01] MEDS: FAMOTIDINE 20 MG TABLET PO SCH (09:59)
[2020-03-01] MEDS: MAG HYDROX/AL HYDROX/SIMETH 30 ML UNIT-DOSE CUP PO PRN (10:01)
[2020-03-01] MEDS: ACETAMINOPHEN 325 MG TABLET (FP) PO PRN (20:13)
[2020-03-01] MEDS: MELATONIN 5 MG TABLETS PO SCH (21:51)
[2020-03-01] MEDS: THIAMINE HCL 100 MG TABLET (FP) PO SCH (21:51)
[2020-03-01] MEDS: SUVOREXANT 10 MG TABLET PO PRN (21:53)
[2020-03-01] MEDS: hydrOXYzine PAMOATE 50 MG CAPSULE (FP) PO PRN (21:54)
[2020-03-01] MEDS: ALBUTEROL SO4 HFA INHALER IH PRN (22:04)
[2020-03-02] MEDS ORDERED: METHADONE HCL 5 MG TABLET ONE (03:56)
[2020-03-02] MEDS ORDERED: METHADONE HCL 10 MG TABLET ONE (03:56)
[2020-03-02] MEDS ORDERED: METHADONE HCL 40 MG DISPERSABLE TABLET ONE (03:56)
[2020-03-02] MEDS: METHOCARBAMOL 500 MG TABLET PO PRN ×2 (06:09→21:01)
[2020-03-02] MEDS: METHADONE 80 MG, METHADONE 30 MG, METHADONE 5 MG PO SCH (06:09)
[2020-03-02] MEDS: hydrOXYzine PAMOATE 50 MG CAPSULE (FP) PO PRN ×2 (06:09→21:01)
[2020-03-02] MEDS: IBUPROFEN 400 MG TABLET (FP) PO PRN (06:12)
[2020-03-02] MEDS: MAG HYDROX/AL HYDROX/SIMETH 30 ML UNIT-DOSE CUP PO PRN ×3 (07:53→21:01)
[2020-03-02] MEDS: PRENATAL VITAMINS W/ FOLIC ACID TABLET (FP) PO SCH (10:04)
[2020-03-02] MEDS: FAMOTIDINE 20 MG TABLET PO SCH (10:05)
[2020-03-02] MEDS: levETIRAcetam 500 MG TABLET (FP) PO SCH ×2 (10:05→21:01)
[2020-03-02] MEDS: ESCITALOPRAM OXALATE 20 MG TABLET PO SCH (10:05)
[2020-03-02] MEDS: DIVALPROEX SODIUM 500 MG TABLET E.C. PO SCH ×2 (10:05→21:01)
[2020-03-02] MEDS: NICOTINE 14 MG/24 HOURS TOPICAL PATCH TD SCH (10:05)
[2020-03-02] MEDS: SILVER SULFADIAZINE 1% TOP CREAM 50 GM JAR TP SCH (10:06)
[2020-03-02] MEDS: BACITRACIN 0.9 GM PACKET TP SCH ×2 (10:15→21:01)
[2020-03-02] MEDS: ALBUTEROL SO4 HFA INHALER IH PRN ×2 (14:27→18:06)
[2020-03-02] MEDS: ACETAMINOPHEN 325 MG TABLET (FP) PO PRN (19:48)
[2020-03-02] MEDS: THIAMINE HCL 100 MG TABLET (FP) PO SCH (21:01)
[2020-03-02] MEDS: MELATONIN 5 MG TABLETS PO SCH (21:01)
[2020-03-03] MEDS ORDERED: METHADONE HCL 10 MG TABLET ONE (04:27)
[2020-03-03] MEDS ORDERED: METHADONE HCL 40 MG DISPERSABLE TABLET ONE (04:27)
[2020-03-03] MEDS ORDERED: METHADONE HCL 5 MG TABLET ONE (04:27)
[2020-03-03] MEDS: METHADONE 80 MG, METHADONE 30 MG, METHADONE 5 MG PO SCH (06:23)
[2020-03-03] MEDS: METHOCARBAMOL 500 MG TABLET PO PRN ×3 (06:23→21:49)
[2020-03-03] MEDS: MAG HYDROX/AL HYDROX/SIMETH 30 ML UNIT-DOSE CUP PO PRN ×2 (06:24→12:09)
[2020-03-03] MEDS: hydrOXYzine PAMOATE 50 MG CAPSULE (FP) PO PRN ×3 (06:24→21:49)
[2020-03-03] MEDS: ACETAMINOPHEN 325 MG TABLET (FP) PO PRN ×2 (06:35→21:51)
[2020-03-03] MEDS: PRENATAL VITAMINS W/ FOLIC ACID TABLET (FP) PO SCH (10:04)
[2020-03-03] MEDS: ESCITALOPRAM OXALATE 20 MG TABLET PO SCH (10:04)
[2020-03-03] MEDS: levETIRAcetam 500 MG TABLET (FP) PO SCH ×2 (10:04→21:49)
[2020-03-03] MEDS: DIVALPROEX SODIUM 500 MG TABLET E.C. PO SCH ×2 (10:04→21:49)
[2020-03-03] MEDS: BACITRACIN 0.9 GM PACKET TP SCH ×2 (10:04→21:49)
[2020-03-03] MEDS: FAMOTIDINE 20 MG TABLET PO SCH ×2 (10:05→21:50)
[2020-03-03] MEDS: SILVER SULFADIAZINE 1% TOP CREAM 50 GM JAR TP SCH (10:05)
[2020-03-03] MEDS: NICOTINE 14 MG/24 HOURS TOPICAL PATCH TD SCH (10:06)
[2020-03-03] MEDS: SUVOREXANT 10 MG TABLET PO PRN (21:49)
[2020-03-03] MEDS: THIAMINE HCL 100 MG TABLET (FP) PO SCH (21:49)
[2020-03-03] MEDS: MELATONIN 5 MG TABLETS PO SCH (21:50)
[2020-03-03] MEDS: ALBUTEROL SO4 HFA INHALER IH PRN (21:51)
[2020-03-04] MEDS ORDERED: METHADONE HCL 10 MG TABLET ONE (03:48)
[2020-03-04] MEDS ORDERED: METHADONE HCL 40 MG DISPERSABLE TABLET ONE (03:48)
[2020-03-04] MEDS ORDERED: METHADONE HCL 5 MG TABLET ONE (03:48)
[2020-03-04] MEDS: METHOCARBAMOL 500 MG TABLET PO PRN ×2 (06:06→21:22)
[2020-03-04] MEDS: hydrOXYzine PAMOATE 50 MG CAPSULE (FP) PO PRN ×2 (06:06→21:23)
[2020-03-04] MEDS: MAG HYDROX/AL HYDROX/SIMETH 30 ML UNIT-DOSE CUP PO PRN ×3 (06:06→18:23)
[2020-03-04] MEDS: ACETAMINOPHEN 325 MG TABLET (FP) PO PRN (06:06)
[2020-03-04] MEDS: METHADONE 80 MG, METHADONE 30 MG, METHADONE 5 MG PO SCH (06:06)
[2020-03-04] MEDS: PRENATAL VITAMINS W/ FOLIC ACID TABLET (FP) PO SCH (10:24)
[2020-03-04] MEDS: FAMOTIDINE 20 MG TABLET PO SCH ×2 (10:25→21:23)
[2020-03-04] MEDS: levETIRAcetam 500 MG TABLET (FP) PO SCH ×2 (10:25→21:22)
[2020-03-04] MEDS: NICOTINE 14 MG/24 HOURS TOPICAL PATCH TD SCH (10:25)
[2020-03-04] MEDS: ESCITALOPRAM OXALATE 20 MG TABLET PO SCH (10:25)
[2020-03-04] MEDS: BACITRACIN 0.9 GM PACKET TP SCH ×2 (10:25→21:22)
[2020-03-04] MEDS: DIVALPROEX SODIUM 500 MG TABLET E.C. PO SCH ×2 (10:25→21:22)
[2020-03-04] MEDS: SILVER SULFADIAZINE 1% TOP CREAM 50 GM JAR TP SCH (10:27)
[2020-03-04] MEDS: ALBUTEROL SO4 HFA INHALER IH PRN (15:23)
[2020-03-04] MEDS: THIAMINE HCL 100 MG TABLET (FP) PO SCH (21:22)
[2020-03-04] MEDS: SUVOREXANT 10 MG TABLET PO PRN (21:22)
[2020-03-04] MEDS: MELATONIN 5 MG TABLETS PO SCH (21:23)
[2020-03-04] MEDS ORDERED: PANTOPRAZOLE 40 MG TABLET PO ONE (23:31)
[2020-03-05] MEDS: SUCRALFATE 1 GM TABLET (FP) PO SCH ×5 (00:30→22:06)
[2020-03-05] MEDS ORDERED: METHADONE HCL 10 MG TABLET ONE (03:29)
[2020-03-05] MEDS ORDERED: METHADONE HCL 5 MG TABLET ONE (03:29)
[2020-03-05] MEDS ORDERED: METHADONE HCL 40 MG DISPERSABLE TABLET ONE (03:30)
[2020-03-05] MEDS: hydrOXYzine PAMOATE 50 MG CAPSULE (FP) PO PRN ×3 (06:03→22:08)
[2020-03-05] MEDS: METHOCARBAMOL 500 MG TABLET PO PRN ×3 (06:03→22:10)
[2020-03-05] MEDS: METHADONE 80 MG, METHADONE 30 MG, METHADONE 5 MG PO SCH (06:03)
[2020-03-05] MEDS: PRENATAL VITAMINS W/ FOLIC ACID TABLET (FP) PO SCH (09:57)
[2020-03-05] MEDS: FAMOTIDINE 20 MG TABLET PO SCH ×2 (09:57→22:07)
[2020-03-05] MEDS: DIVALPROEX SODIUM 500 MG TABLET E.C. PO SCH ×2 (09:57→22:06)
[2020-03-05] MEDS: levETIRAcetam 500 MG TABLET (FP) PO SCH ×2 (09:57→22:06)
[2020-03-05] MEDS: BACITRACIN 0.9 GM PACKET TP SCH ×2 (09:57→22:07)
[2020-03-05] MEDS: ESCITALOPRAM OXALATE 20 MG TABLET PO SCH (09:57)
[2020-03-05] MEDS: NICOTINE 14 MG/24 HOURS TOPICAL PATCH TD SCH (09:58)
[2020-03-05] MEDS: SILVER SULFADIAZINE 1% TOP CREAM 50 GM JAR TP SCH (09:58)
[2020-03-05] MEDS: MAG HYDROX/AL HYDROX/SIMETH 30 ML UNIT-DOSE CUP PO PRN ×2 (11:47→17:50)
[2020-03-05 13:05] LABS: HEMATOCRIT 29.3 % (35.4-49); HEMOGLOBIN 9.9 GM/dL (11.7-16.9); MCH 30.1 pg (25.7-33.7); MCHC 33.7 g/dl (32.0-35.9); MEAN CELL VOLUME 89.1 fl (80-96); MEAN PLT VOLUME 10.3 fl (7.5-11.1); PLATELET COUNT 196 K/MM3 (134-434); RBC 3.29 M/mm3 (4.00-5.60); RDW 14.3 % (11.9-15.9); WHITE BLOOD COUNT 7.6 K/mm3 (4.0-10.0)
[2020-03-05 13:08] LABS: INR 1.05 (0.83-1.09); PROTHROMBIN TIME (PATIENT) 12.9 SEC (9.7-13.0)
[2020-03-05] MEDS: MELATONIN 5 MG TABLETS PO SCH (22:07)
[2020-03-05] MEDS: ACETAMINOPHEN 325 MG TABLET (FP) PO PRN (22:10)
[2020-03-05] MEDS: SUVOREXANT 10 MG TABLET PO PRN (22:10)
[2020-03-05] MEDS: THIAMINE HCL 100 MG TABLET (FP) PO SCH (22:11)
[2020-03-06] MEDS ORDERED: METHADONE HCL 10 MG TABLET ONE (03:31)
[2020-03-06] MEDS ORDERED: METHADONE HCL 40 MG DISPERSABLE TABLET ONE (03:31)
[2020-03-06] MEDS ORDERED: METHADONE HCL 5 MG TABLET ONE (03:31)
[2020-03-06] MEDS: ACETAMINOPHEN 325 MG TABLET (FP) PO PRN (05:58)
[2020-03-06] MEDS: METHOCARBAMOL 500 MG TABLET PO PRN ×3 (05:59→18:55)
[2020-03-06] MEDS: hydrOXYzine PAMOATE 50 MG CAPSULE (FP) PO PRN ×3 (05:59→18:55)
[2020-03-06] MEDS: SUCRALFATE 1 GM TABLET (FP) PO SCH ×3 (05:59→22:02)
[2020-03-06] MEDS: METHADONE 80 MG, METHADONE 30 MG, METHADONE 5 MG PO SCH (05:59)
[2020-03-06] MEDS: levETIRAcetam 500 MG TABLET (FP) PO SCH ×2 (09:46→22:01)
[2020-03-06] MEDS: PRENATAL VITAMINS W/ FOLIC ACID TABLET (FP) PO SCH (09:46)
[2020-03-06] MEDS: ESCITALOPRAM OXALATE 20 MG TABLET PO SCH (09:47)
[2020-03-06] MEDS: DIVALPROEX SODIUM 500 MG TABLET E.C. PO SCH ×2 (09:47→22:01)
[2020-03-06] MEDS: BACITRACIN 0.9 GM PACKET TP SCH ×2 (09:47→22:02)
[2020-03-06] MEDS: FAMOTIDINE 20 MG TABLET PO SCH (09:48)
[2020-03-06] MEDS: SILVER SULFADIAZINE 1% TOP CREAM 50 GM JAR TP SCH (09:49)
[2020-03-06] MEDS: NICOTINE 14 MG/24 HOURS TOPICAL PATCH TD SCH (09:50)
[2020-03-06] MEDS: MAG HYDROX/AL HYDROX/SIMETH 30 ML UNIT-DOSE CUP PO PRN ×2 (12:25→18:55)
[2020-03-06] MEDS: ALBUTEROL SO4 HFA INHALER IH PRN (18:57)
[2020-03-06] MEDS ORDERED: PANTOPRAZOLE 20 MG TABLET PO ONE (19:51)
[2020-03-06] MEDS: THIAMINE HCL 100 MG TABLET (FP) PO SCH (22:01)
[2020-03-06] MEDS: MELATONIN 5 MG TABLETS PO SCH (22:02)
[2020-03-06] MEDS: SUVOREXANT 10 MG TABLET PO PRN (22:03)
[2020-03-07] MEDS ORDERED: METHADONE HCL 5 MG TABLET ONE (05:18)
[2020-03-07] MEDS ORDERED: METHADONE HCL 10 MG TABLET ONE (05:18)
[2020-03-07] MEDS ORDERED: METHADONE HCL 40 MG DISPERSABLE TABLET ONE (05:19)
[2020-03-07] MEDS: METHADONE 80 MG, METHADONE 30 MG, METHADONE 5 MG PO SCH (05:54)
[2020-03-07] MEDS: SUCRALFATE 1 GM TABLET (FP) PO SCH ×3 (05:55→21:47)
[2020-03-07] MEDS: ACETAMINOPHEN 325 MG TABLET (FP) PO PRN (05:55)
[2020-03-07] MEDS: hydrOXYzine PAMOATE 50 MG CAPSULE (FP) PO PRN ×3 (05:55→21:07)
[2020-03-07] MEDS: METHOCARBAMOL 500 MG TABLET PO PRN ×3 (05:55→21:07)
[2020-03-07] MEDS: PANTOPRAZOLE 20 MG TABLET PO SCH ×2 (10:14→21:07)
[2020-03-07] MEDS: ESCITALOPRAM OXALATE 20 MG TABLET PO SCH (10:14)
[2020-03-07] MEDS: PRENATAL VITAMINS W/ FOLIC ACID TABLET (FP) PO SCH (10:14)
[2020-03-07] MEDS: BACITRACIN 0.9 GM PACKET TP SCH ×2 (10:14→21:07)
[2020-03-07] MEDS: DIVALPROEX SODIUM 500 MG TABLET E.C. PO SCH ×2 (10:14→21:08)
[2020-03-07] MEDS: levETIRAcetam 500 MG TABLET (FP) PO SCH ×2 (10:14→21:07)
[2020-03-07] MEDS: NICOTINE 14 MG/24 HOURS TOPICAL PATCH TD SCH (10:15)
[2020-03-07] MEDS: SILVER SULFADIAZINE 1% TOP CREAM 50 GM JAR TP SCH (10:19)
[2020-03-07] MEDS: MAG HYDROX/AL HYDROX/SIMETH 30 ML UNIT-DOSE CUP PO PRN (13:52)
[2020-03-07] MEDS: ALBUTEROL SO4 HFA INHALER IH PRN (14:57)
[2020-03-07] MEDS: THIAMINE HCL 100 MG TABLET (FP) PO SCH (21:07)
[2020-03-07] MEDS: MELATONIN 5 MG TABLETS PO SCH (21:08)
[2020-03-07] MEDS: SUVOREXANT 10 MG TABLET PO PRN (21:10)
[2020-03-08] MEDS ORDERED: METHADONE HCL 5 MG TABLET ONE (06:02)
[2020-03-08] MEDS ORDERED: METHADONE HCL 10 MG TABLET ONE (06:02)
[2020-03-08] MEDS ORDERED: METHADONE HCL 40 MG DISPERSABLE TABLET ONE (06:03)
[2020-03-08] MEDS: ACETAMINOPHEN 325 MG TABLET (FP) PO PRN ×2 (06:05→21:48)
[2020-03-08] MEDS: hydrOXYzine PAMOATE 50 MG CAPSULE (FP) PO PRN ×3 (06:05→21:47)
[2020-03-08] MEDS: METHOCARBAMOL 500 MG TABLET PO PRN ×3 (06:05→21:47)
[2020-03-08] MEDS: SUCRALFATE 1 GM TABLET (FP) PO SCH ×3 (06:06→21:47)
[2020-03-08] MEDS: METHADONE 80 MG, METHADONE 30 MG, METHADONE 5 MG PO SCH (06:06)
[2020-03-08] MEDS: ESCITALOPRAM OXALATE 20 MG TABLET PO SCH (10:24)
[2020-03-08] MEDS: PANTOPRAZOLE 20 MG TABLET PO SCH ×2 (10:24→21:47)
[2020-03-08] MEDS: PRENATAL VITAMINS W/ FOLIC ACID TABLET (FP) PO SCH (10:24)
[2020-03-08] MEDS: levETIRAcetam 500 MG TABLET (FP) PO SCH ×2 (10:24→21:47)
[2020-03-08] MEDS: DIVALPROEX SODIUM 500 MG TABLET E.C. PO SCH ×2 (10:24→21:47)
[2020-03-08] MEDS: NICOTINE 14 MG/24 HOURS TOPICAL PATCH TD SCH (10:24)
[2020-03-08] MEDS: BACITRACIN 0.9 GM PACKET TP SCH ×2 (10:24→21:47)
[2020-03-08] MEDS: SILVER SULFADIAZINE 1% TOP CREAM 50 GM JAR TP SCH (10:24)
[2020-03-08] MEDS: ALBUTEROL SO4 HFA INHALER IH PRN (14:41)
[2020-03-08] MEDS: SUVOREXANT 10 MG TABLET PO PRN (21:47)
[2020-03-08] MEDS: THIAMINE HCL 100 MG TABLET (FP) PO SCH (21:47)
[2020-03-08] MEDS: MELATONIN 5 MG TABLETS PO SCH (21:48)
[2020-03-09] MEDS ORDERED: METHADONE HCL 10 MG TABLET ONE (03:58)
[2020-03-09] MEDS ORDERED: METHADONE HCL 5 MG TABLET ONE (03:58)
[2020-03-09] MEDS ORDERED: METHADONE HCL 40 MG DISPERSABLE TABLET ONE (03:58)
[2020-03-09] MEDS: METHADONE 80 MG, METHADONE 30 MG, METHADONE 5 MG PO SCH (05:59)
[2020-03-09] MEDS: ACETAMINOPHEN 325 MG TABLET (FP) PO PRN ×2 (06:00→12:16)
[2020-03-09] MEDS: SUCRALFATE 1 GM TABLET (FP) PO SCH ×3 (06:00→21:08)
[2020-03-09] MEDS: hydrOXYzine PAMOATE 50 MG CAPSULE (FP) PO PRN ×2 (06:00→12:16)
[2020-03-09] MEDS: METHOCARBAMOL 500 MG TABLET PO PRN ×3 (06:01→21:06)
[2020-03-09] MEDS: PRENATAL VITAMINS W/ FOLIC ACID TABLET (FP) PO SCH (10:47)
[2020-03-09] MEDS: DIVALPROEX SODIUM 500 MG TABLET E.C. PO SCH ×2 (10:48→21:07)
[2020-03-09] MEDS: PANTOPRAZOLE 20 MG TABLET PO SCH ×2 (10:48→21:07)
[2020-03-09] MEDS: ESCITALOPRAM OXALATE 20 MG TABLET PO SCH (10:48)
[2020-03-09] MEDS: NICOTINE 14 MG/24 HOURS TOPICAL PATCH TD SCH (10:48)
[2020-03-09] MEDS: levETIRAcetam 500 MG TABLET (FP) PO SCH ×2 (10:48→21:07)
[2020-03-09] MEDS: SILVER SULFADIAZINE 1% TOP CREAM 50 GM JAR TP SCH (10:48)
[2020-03-09] MEDS: BACITRACIN 0.9 GM PACKET TP SCH (10:48)
[2020-03-09] MEDS: ALBUTEROL SO4 HFA INHALER IH PRN ×2 (10:50→15:48)
[2020-03-09] MEDS: THIAMINE HCL 100 MG TABLET (FP) PO SCH (21:06)
[2020-03-09] MEDS: MELATONIN 5 MG TABLETS PO SCH (21:06)
[2020-03-09] MEDS: SUVOREXANT 10 MG TABLET PO PRN (21:08)
[2020-03-10] MEDS ORDERED: METHADONE HCL 5 MG TABLET ONE (03:26)
[2020-03-10] MEDS ORDERED: METHADONE HCL 10 MG TABLET ONE (03:27)
[2020-03-10] MEDS ORDERED: METHADONE HCL 40 MG DISPERSABLE TABLET ONE (03:27)
[2020-03-10] MEDS: hydrOXYzine PAMOATE 50 MG CAPSULE (FP) PO PRN ×3 (06:10→19:42)
[2020-03-10] MEDS: METHOCARBAMOL 500 MG TABLET PO PRN ×3 (06:10→21:14)
[2020-03-10] MEDS: ACETAMINOPHEN 325 MG TABLET (FP) PO PRN ×2 (06:10→19:41)
[2020-03-10] MEDS: METHADONE 80 MG, METHADONE 30 MG, METHADONE 5 MG PO SCH (06:11)
[2020-03-10] MEDS: SUCRALFATE 1 GM TABLET (FP) PO SCH ×3 (06:14→21:15)
[2020-03-10] MEDS: ESCITALOPRAM OXALATE 20 MG TABLET PO SCH (10:29)
[2020-03-10] MEDS: levETIRAcetam 500 MG TABLET (FP) PO SCH ×2 (10:29→21:14)
[2020-03-10] MEDS: DIVALPROEX SODIUM 500 MG TABLET E.C. PO SCH ×2 (10:29→21:15)
[2020-03-10] MEDS: PANTOPRAZOLE 20 MG TABLET PO SCH ×2 (10:29→21:14)
[2020-03-10] MEDS: ALBUTEROL SO4 HFA INHALER IH PRN (10:30)
[2020-03-10] MEDS: PRENATAL VITAMINS W/ FOLIC ACID TABLET (FP) PO SCH (10:30)
[2020-03-10] MEDS: NICOTINE 14 MG/24 HOURS TOPICAL PATCH TD SCH (10:30)
[2020-03-10] MEDS: MELATONIN 5 MG TABLETS PO SCH (21:14)
[2020-03-10] MEDS: THIAMINE HCL 100 MG TABLET (FP) PO SCH (21:15)
[2020-03-10] MEDS: SUVOREXANT 10 MG TABLET PO PRN (21:18)
[2020-03-11] MEDS ORDERED: METHADONE HCL 10 MG TABLET ONE (03:34)
[2020-03-11] MEDS ORDERED: METHADONE HCL 5 MG TABLET ONE (03:34)
[2020-03-11] MEDS ORDERED: METHADONE HCL 40 MG DISPERSABLE TABLET ONE (03:34)
[2020-03-11] MEDS: IBUPROFEN 400 MG TABLET (FP) PO PRN ×2 (06:03→13:05)
[2020-03-11] MEDS: METHOCARBAMOL 500 MG TABLET PO PRN ×2 (06:03→21:05)
[2020-03-11] MEDS: METHADONE 80 MG, METHADONE 30 MG, METHADONE 5 MG PO SCH (06:04)
[2020-03-11] MEDS: hydrOXYzine PAMOATE 50 MG CAPSULE (FP) PO PRN ×3 (06:04→21:05)
[2020-03-11] MEDS: SUCRALFATE 1 GM TABLET (FP) PO SCH ×3 (06:07→21:07)
[2020-03-11] MEDS: ACETAMINOPHEN 325 MG TABLET (FP) PO PRN (10:23)
[2020-03-11] MEDS: levETIRAcetam 500 MG TABLET (FP) PO SCH ×2 (10:24→21:05)
[2020-03-11] MEDS: DIVALPROEX SODIUM 500 MG TABLET E.C. PO SCH ×2 (10:24→21:05)
[2020-03-11] MEDS: PRENATAL VITAMINS W/ FOLIC ACID TABLET (FP) PO SCH (10:25)
[2020-03-11] MEDS: NICOTINE 14 MG/24 HOURS TOPICAL PATCH TD SCH (10:25)
[2020-03-11] MEDS: ESCITALOPRAM OXALATE 20 MG TABLET PO SCH (10:25)
[2020-03-11] MEDS: PANTOPRAZOLE 20 MG TABLET PO SCH ×2 (10:26→21:05)
[2020-03-11] MEDS: ALBUTEROL SO4 HFA INHALER IH PRN (10:26)
[2020-03-11] MEDS ORDERED: LIDOCAINE VISCOUS 2% ORAL/TOP 20 ML UNIT-DOSE CUP MM PRN (11:16)
[2020-03-11] MEDS: CLINDAMYCIN HCL 150 MG CAPSULE (FP) PO SCH ×3 (12:03→23:56)
[2020-03-11] MEDS: MAG HYDROX/AL HYDROX/SIMETH 30 ML UNIT-DOSE CUP PO PRN (18:19)
[2020-03-11] MEDS: THIAMINE HCL 100 MG TABLET (FP) PO SCH (21:05)
[2020-03-11] MEDS: MELATONIN 5 MG TABLETS PO SCH (21:05)
[2020-03-11] MEDS: SUVOREXANT 10 MG TABLET PO PRN (21:07)
[2020-03-12] MEDS ORDERED: METHADONE HCL 5 MG TABLET ONE (03:56)
[2020-03-12] MEDS ORDERED: METHADONE HCL 40 MG DISPERSABLE TABLET ONE (03:57)
[2020-03-12] MEDS ORDERED: METHADONE HCL 10 MG TABLET ONE (03:57)
[2020-03-12] MEDS: METHADONE 80 MG, METHADONE 30 MG, METHADONE 5 MG PO SCH (05:57)
[2020-03-12] MEDS: ACETAMINOPHEN 325 MG TABLET (FP) PO PRN ×2 (05:58→21:57)
[2020-03-12] MEDS: hydrOXYzine PAMOATE 50 MG CAPSULE (FP) PO PRN ×3 (05:58→21:57)
[2020-03-12] MEDS: CLINDAMYCIN HCL 150 MG CAPSULE (FP) PO SCH ×3 (05:58→17:32)
[2020-03-12] MEDS: METHOCARBAMOL 500 MG TABLET PO PRN ×3 (05:58→21:56)
[2020-03-12] MEDS: SUCRALFATE 1 GM TABLET (FP) PO SCH ×3 (06:00→21:56)
[2020-03-12] MEDS: DIVALPROEX SODIUM 500 MG TABLET E.C. PO SCH ×2 (10:29→21:56)
[2020-03-12] MEDS: levETIRAcetam 500 MG TABLET (FP) PO SCH ×2 (10:30→21:56)
[2020-03-12] MEDS: PANTOPRAZOLE 20 MG TABLET PO SCH ×2 (10:30→21:56)
[2020-03-12] MEDS: PRENATAL VITAMINS W/ FOLIC ACID TABLET (FP) PO SCH (10:30)
[2020-03-12] MEDS: ESCITALOPRAM OXALATE 20 MG TABLET PO SCH (10:30)
[2020-03-12] MEDS: IBUPROFEN 400 MG TABLET (FP) PO PRN (10:30)
[2020-03-12] MEDS: NICOTINE 14 MG/24 HOURS TOPICAL PATCH TD SCH (10:30)
[2020-03-12] MEDS: ALBUTEROL SO4 HFA INHALER IH PRN (10:32)
[2020-03-12] MEDS: BACITRACIN 0.9 GM PACKET TP SCH (21:55)
[2020-03-12] MEDS: THIAMINE HCL 100 MG TABLET (FP) PO SCH (21:56)
[2020-03-12] MEDS: SUVOREXANT 10 MG TABLET PO PRN (21:57)
[2020-03-12] MEDS: MELATONIN 5 MG TABLETS PO SCH (21:57)
[2020-03-13] MEDS: CLINDAMYCIN HCL 150 MG CAPSULE (FP) PO SCH ×5 (00:19→23:57)
[2020-03-13] MEDS ORDERED: METHADONE HCL 5 MG TABLET ONE (03:39)
[2020-03-13] MEDS ORDERED: METHADONE HCL 40 MG DISPERSABLE TABLET ONE (03:39)
[2020-03-13] MEDS ORDERED: METHADONE HCL 10 MG TABLET ONE (03:39)
[2020-03-13] MEDS: ACETAMINOPHEN 325 MG TABLET (FP) PO PRN (06:08)
[2020-03-13] MEDS: METHADONE 80 MG, METHADONE 30 MG, METHADONE 5 MG PO SCH (06:08)
[2020-03-13] MEDS: hydrOXYzine PAMOATE 50 MG CAPSULE (FP) PO PRN ×3 (06:08→21:08)
[2020-03-13] MEDS: METHOCARBAMOL 500 MG TABLET PO PRN ×3 (06:08→21:08)
[2020-03-13] MEDS: SUCRALFATE 1 GM TABLET (FP) PO SCH ×3 (06:12→21:11)
[2020-03-13] MEDS: PANTOPRAZOLE 20 MG TABLET PO SCH ×2 (10:05→21:10)
[2020-03-13] MEDS: DIVALPROEX SODIUM 500 MG TABLET E.C. PO SCH ×2 (10:05→21:08)
[2020-03-13] MEDS: levETIRAcetam 500 MG TABLET (FP) PO SCH ×2 (10:05→21:08)
[2020-03-13] MEDS: PRENATAL VITAMINS W/ FOLIC ACID TABLET (FP) PO SCH (10:05)
[2020-03-13] MEDS: NICOTINE 14 MG/24 HOURS TOPICAL PATCH TD SCH (10:05)
[2020-03-13] MEDS: ESCITALOPRAM OXALATE 20 MG TABLET PO SCH (10:05)
[2020-03-13] MEDS: ALBUTEROL SO4 HFA INHALER IH PRN ×2 (10:08→17:40)
[2020-03-13] MEDS: THIAMINE HCL 100 MG TABLET (FP) PO SCH (21:08)
[2020-03-13] MEDS: SUVOREXANT 10 MG TABLET PO PRN (21:08)
[2020-03-13] MEDS: IBUPROFEN 400 MG TABLET (FP) PO PRN (21:09)
[2020-03-13] MEDS: MELATONIN 5 MG TABLETS PO SCH (21:11)
[2020-03-14] MEDS ORDERED: METHADONE HCL 5 MG TABLET ONE (03:15)
[2020-03-14] MEDS ORDERED: METHADONE HCL 10 MG TABLET ONE (03:15)
[2020-03-14] MEDS ORDERED: METHADONE HCL 40 MG DISPERSABLE TABLET ONE (03:16)
[2020-03-14] MEDS: ACETAMINOPHEN 325 MG TABLET (FP) PO PRN ×3 (05:58→23:50)
[2020-03-14] MEDS: hydrOXYzine PAMOATE 50 MG CAPSULE (FP) PO PRN ×3 (05:58→21:46)
[2020-03-14] MEDS: METHOCARBAMOL 500 MG TABLET PO PRN ×3 (05:59→21:53)
[2020-03-14] MEDS: METHADONE 80 MG, METHADONE 30 MG, METHADONE 5 MG PO SCH (06:00)
[2020-03-14] MEDS: SUCRALFATE 1 GM TABLET (FP) PO SCH ×3 (06:00→21:47)
[2020-03-14] MEDS: CLINDAMYCIN HCL 150 MG CAPSULE (FP) PO SCH ×4 (06:41→23:49)
[2020-03-14] MEDS: ALBUTEROL SO4 HFA INHALER IH PRN (08:31)
[2020-03-14] MEDS: PRENATAL VITAMINS W/ FOLIC ACID TABLET (FP) PO SCH (10:12)
[2020-03-14] MEDS: NICOTINE 14 MG/24 HOURS TOPICAL PATCH TD SCH (10:13)
[2020-03-14] MEDS: ESCITALOPRAM OXALATE 20 MG TABLET PO SCH (10:13)
[2020-03-14] MEDS: levETIRAcetam 500 MG TABLET (FP) PO SCH ×2 (10:13→21:46)
[2020-03-14] MEDS: DIVALPROEX SODIUM 500 MG TABLET E.C. PO SCH ×2 (10:15→21:46)
[2020-03-14] MEDS: PANTOPRAZOLE 20 MG TABLET PO SCH ×2 (11:46→21:46)
[2020-03-14] MEDS: SUVOREXANT 10 MG TABLET PO PRN (21:46)
[2020-03-14] MEDS: THIAMINE HCL 100 MG TABLET (FP) PO SCH (21:46)
[2020-03-14] MEDS: MELATONIN 5 MG TABLETS PO SCH (21:46)
[2020-03-15] MEDS ORDERED: METHADONE HCL 5 MG TABLET ONE (03:46)
[2020-03-15] MEDS ORDERED: METHADONE HCL 10 MG TABLET ONE (03:46)
[2020-03-15] MEDS ORDERED: METHADONE HCL 40 MG DISPERSABLE TABLET ONE (03:47)
[2020-03-15] MEDS: CLINDAMYCIN HCL 150 MG CAPSULE (FP) PO SCH ×4 (06:07→23:54)
[2020-03-15] MEDS: IBUPROFEN 400 MG TABLET (FP) PO PRN (06:07)
[2020-03-15] MEDS: METHADONE 80 MG, METHADONE 30 MG, METHADONE 5 MG PO SCH (06:09)
[2020-03-15] MEDS: SUCRALFATE 1 GM TABLET (FP) PO SCH ×3 (06:11→22:01)
[2020-03-15] MEDS: METHOCARBAMOL 500 MG TABLET PO PRN ×3 (06:45→22:00)
[2020-03-15] MEDS: PRENATAL VITAMINS W/ FOLIC ACID TABLET (FP) PO SCH (10:07)
[2020-03-15] MEDS: hydrOXYzine PAMOATE 50 MG CAPSULE (FP) PO PRN ×2 (10:08→21:59)
[2020-03-15] MEDS: ESCITALOPRAM OXALATE 20 MG TABLET PO SCH (10:08)
[2020-03-15] MEDS: PANTOPRAZOLE 20 MG TABLET PO SCH ×2 (10:08→21:58)
[2020-03-15] MEDS: DIVALPROEX SODIUM 500 MG TABLET E.C. PO SCH ×2 (10:08→21:58)
[2020-03-15] MEDS: levETIRAcetam 500 MG TABLET (FP) PO SCH ×2 (10:08→21:58)
[2020-03-15] MEDS: NICOTINE 14 MG/24 HOURS TOPICAL PATCH TD SCH (10:09)
[2020-03-15] MEDS: ACETAMINOPHEN 325 MG TABLET (FP) PO PRN (14:04)
[2020-03-15] MEDS: MELATONIN 5 MG TABLETS PO SCH (21:58)
[2020-03-15] MEDS: THIAMINE HCL 100 MG TABLET (FP) PO SCH (21:58)
[2020-03-15] MEDS: SUVOREXANT 10 MG TABLET PO PRN (22:01)
[2020-03-16] MEDS ORDERED: METHADONE HCL 5 MG TABLET ONE (03:45)
[2020-03-16] MEDS ORDERED: METHADONE HCL 40 MG DISPERSABLE TABLET ONE (03:46)
[2020-03-16] MEDS ORDERED: METHADONE HCL 10 MG TABLET ONE (03:46)
[2020-03-16] MEDS: hydrOXYzine PAMOATE 50 MG CAPSULE (FP) PO PRN ×3 (06:04→21:59)
[2020-03-16] MEDS: METHOCARBAMOL 500 MG TABLET PO PRN ×3 (06:05→21:58)
[2020-03-16] MEDS: METHADONE 80 MG, METHADONE 30 MG, METHADONE 5 MG PO SCH (06:05)
[2020-03-16] MEDS: CLINDAMYCIN HCL 150 MG CAPSULE (FP) PO SCH ×4 (06:05→23:10)
[2020-03-16] MEDS: IBUPROFEN 400 MG TABLET (FP) PO PRN ×2 (06:06→15:45)
[2020-03-16] MEDS ORDERED: ACETAMINOPHEN 325 MG TABLET (FP) ONE (07:46)
[2020-03-16] MEDS: SUCRALFATE 1 GM TABLET (FP) PO SCH ×3 (07:50→21:59)
[2020-03-16] MEDS: DIVALPROEX SODIUM 500 MG TABLET E.C. PO SCH ×2 (10:13→21:59)
[2020-03-16] MEDS: levETIRAcetam 500 MG TABLET (FP) PO SCH ×2 (10:13→21:58)
[2020-03-16] MEDS: PANTOPRAZOLE 20 MG TABLET PO SCH ×2 (10:14→21:59)
[2020-03-16] MEDS: PRENATAL VITAMINS W/ FOLIC ACID TABLET (FP) PO SCH (10:14)
[2020-03-16] MEDS: ESCITALOPRAM OXALATE 20 MG TABLET PO SCH (10:14)
[2020-03-16] MEDS: NICOTINE 14 MG/24 HOURS TOPICAL PATCH TD SCH (10:14)
[2020-03-16] MEDS: SUVOREXANT 10 MG TABLET PO PRN (21:59)
[2020-03-16] MEDS: MELATONIN 5 MG TABLETS PO SCH (21:59)
[2020-03-16] MEDS: THIAMINE HCL 100 MG TABLET (FP) PO SCH (21:59)
[2020-03-17] MEDS ORDERED: METHADONE HCL 5 MG TABLET ONE (03:30)
[2020-03-17] MEDS ORDERED: METHADONE HCL 40 MG DISPERSABLE TABLET ONE (03:31)
[2020-03-17] MEDS ORDERED: METHADONE HCL 10 MG TABLET ONE (03:31)
[2020-03-17] MEDS: METHADONE 80 MG, METHADONE 30 MG, METHADONE 5 MG PO SCH (06:20)
[2020-03-17] MEDS: SUCRALFATE 1 GM TABLET (FP) PO SCH ×3 (06:21→21:03)
[2020-03-17] MEDS: CLINDAMYCIN HCL 150 MG CAPSULE (FP) PO SCH ×4 (06:22→23:31)
[2020-03-17] MEDS: METHOCARBAMOL 500 MG TABLET PO PRN ×3 (06:23→21:04)
[2020-03-17] MEDS: IBUPROFEN 400 MG TABLET (FP) PO PRN (06:23)
[2020-03-17] MEDS: hydrOXYzine PAMOATE 50 MG CAPSULE (FP) PO PRN ×3 (06:23→21:04)
[2020-03-17] MEDS: PANTOPRAZOLE 20 MG TABLET PO SCH ×2 (10:19→21:04)
[2020-03-17] MEDS: NICOTINE 14 MG/24 HOURS TOPICAL PATCH TD SCH (10:20)
[2020-03-17] MEDS: PRENATAL VITAMINS W/ FOLIC ACID TABLET (FP) PO SCH (10:20)
[2020-03-17] MEDS: ESCITALOPRAM OXALATE 20 MG TABLET PO SCH (10:20)
[2020-03-17] MEDS: DIVALPROEX SODIUM 500 MG TABLET E.C. PO SCH ×2 (10:20→21:04)
[2020-03-17] MEDS: levETIRAcetam 500 MG TABLET (FP) PO SCH ×2 (10:20→21:04)
[2020-03-17] MEDS: NICOTINE 7 MG/24 HOURS TOPICAL PATCH TD SCH (11:23)
[2020-03-17] MEDS: SILVER SULFADIAZINE 1% TOP CREAM 50 GM JAR TP SCH (11:58)
[2020-03-17] MEDS: ACETAMINOPHEN 325 MG TABLET (FP) PO PRN (14:33)
[2020-03-17] MEDS: SUVOREXANT 10 MG TABLET PO PRN (21:04)
[2020-03-17] MEDS: THIAMINE HCL 100 MG TABLET (FP) PO SCH (21:04)
[2020-03-17] MEDS: MELATONIN 5 MG TABLETS PO SCH (21:04)
[2020-03-18] MEDS ORDERED: METHADONE HCL 5 MG TABLET ONE (06:09)
[2020-03-18] MEDS ORDERED: METHADONE HCL 10 MG TABLET ONE (06:10)
[2020-03-18] MEDS ORDERED: METHADONE HCL 40 MG DISPERSABLE TABLET ONE (06:10)
[2020-03-18] MEDS: hydrOXYzine PAMOATE 50 MG CAPSULE (FP) PO PRN ×3 (06:11→21:50)
[2020-03-18] MEDS: ACETAMINOPHEN 325 MG TABLET (FP) PO PRN (06:11)
[2020-03-18] MEDS: METHADONE 80 MG, METHADONE 30 MG, METHADONE 5 MG PO SCH (06:11)
[2020-03-18] MEDS: METHOCARBAMOL 500 MG TABLET PO PRN ×3 (06:11→21:50)
[2020-03-18] MEDS: CLINDAMYCIN HCL 150 MG CAPSULE (FP) PO SCH (06:11)
[2020-03-18] MEDS: SUCRALFATE 1 GM TABLET (FP) PO SCH ×3 (06:14→21:53)
[2020-03-18] MEDS: levETIRAcetam 500 MG TABLET (FP) PO SCH ×2 (10:29→21:51)
[2020-03-18] MEDS: ESCITALOPRAM OXALATE 20 MG TABLET PO SCH (10:29)
[2020-03-18] MEDS: PRENATAL VITAMINS W/ FOLIC ACID TABLET (FP) PO SCH (10:29)
[2020-03-18] MEDS: DIVALPROEX SODIUM 500 MG TABLET E.C. PO SCH ×2 (10:29→21:50)
[2020-03-18] MEDS: PANTOPRAZOLE 20 MG TABLET PO SCH ×2 (10:29→21:53)
[2020-03-18] MEDS: NICOTINE 7 MG/24 HOURS TOPICAL PATCH TD SCH (10:29)
[2020-03-18] MEDS: SILVER SULFADIAZINE 1% TOP CREAM 50 GM JAR TP SCH (10:31)
[2020-03-18] MEDS: ALBUTEROL SO4 HFA INHALER IH PRN (11:10)
[2020-03-18] MEDS: THIAMINE HCL 100 MG TABLET (FP) PO SCH (21:50)
[2020-03-18] MEDS: MELATONIN 5 MG TABLETS PO SCH (21:51)
[2020-03-18] MEDS: SUVOREXANT 15 MG TABLET PO PRN (21:53)
[2020-03-19] MEDS ORDERED: METHADONE HCL 5 MG TABLET ONE (04:02)
[2020-03-19] MEDS ORDERED: METHADONE HCL 10 MG TABLET ONE (04:03)
[2020-03-19] MEDS ORDERED: METHADONE HCL 40 MG DISPERSABLE TABLET ONE (04:03)
[2020-03-19] MEDS: METHADONE 80 MG, METHADONE 30 MG, METHADONE 5 MG PO SCH (06:30)
[2020-03-19] MEDS: METHOCARBAMOL 500 MG TABLET PO PRN ×3 (06:30→22:06)
[2020-03-19] MEDS: ACETAMINOPHEN 325 MG TABLET (FP) PO PRN (06:31)
[2020-03-19] MEDS: hydrOXYzine PAMOATE 50 MG CAPSULE (FP) PO PRN ×2 (06:31→13:09)
[2020-03-19] MEDS: SUCRALFATE 1 GM TABLET (FP) PO SCH ×3 (06:33→22:04)
[2020-03-19] MEDS: PRENATAL VITAMINS W/ FOLIC ACID TABLET (FP) PO SCH (10:16)
[2020-03-19] MEDS: levETIRAcetam 500 MG TABLET (FP) PO SCH ×2 (10:16→22:03)
[2020-03-19] MEDS: PANTOPRAZOLE 20 MG TABLET PO SCH ×2 (10:16→22:03)
[2020-03-19] MEDS: ESCITALOPRAM OXALATE 20 MG TABLET PO SCH (10:16)
[2020-03-19] MEDS: DIVALPROEX SODIUM 500 MG TABLET E.C. PO SCH ×2 (10:16→22:03)
[2020-03-19] MEDS: IBUPROFEN 400 MG TABLET (FP) PO PRN (10:17)
[2020-03-19] MEDS: SILVER SULFADIAZINE 1% TOP CREAM 50 GM JAR TP SCH (10:17)
[2020-03-19] MEDS: NICOTINE 7 MG/24 HOURS TOPICAL PATCH TD SCH (10:17)
[2020-03-19] MEDS: ALBUTEROL SO4 HFA INHALER IH PRN (13:11)
[2020-03-19] MEDS: THIAMINE HCL 100 MG TABLET (FP) PO SCH (22:02)
[2020-03-19] MEDS: MELATONIN 5 MG TABLETS PO SCH (22:02)
[2020-03-19] MEDS: SUVOREXANT 15 MG TABLET PO PRN (22:05)
[2020-03-20] MEDS ORDERED: METHADONE HCL 40 MG DISPERSABLE TABLET ONE (03:38)
[2020-03-20] MEDS ORDERED: METHADONE HCL 5 MG TABLET ONE (03:38)
[2020-03-20] MEDS ORDERED: METHADONE HCL 10 MG TABLET ONE (03:38)
[2020-03-20] MEDS: METHADONE 80 MG, METHADONE 30 MG, METHADONE 5 MG PO SCH (06:06)
[2020-03-20] MEDS: hydrOXYzine PAMOATE 50 MG CAPSULE (FP) PO PRN ×3 (06:07→21:05)
[2020-03-20] MEDS: ACETAMINOPHEN 325 MG TABLET (FP) PO PRN ×2 (06:07→13:39)
[2020-03-20] MEDS: METHOCARBAMOL 500 MG TABLET PO PRN ×3 (06:07→21:05)
[2020-03-20] MEDS: SUCRALFATE 1 GM TABLET (FP) PO SCH ×3 (06:10→21:07)
[2020-03-20] MEDS: ESCITALOPRAM OXALATE 20 MG TABLET PO SCH (10:20)
[2020-03-20] MEDS: PRENATAL VITAMINS W/ FOLIC ACID TABLET (FP) PO SCH (10:20)
[2020-03-20] MEDS: levETIRAcetam 500 MG TABLET (FP) PO SCH ×2 (10:20→21:04)
[2020-03-20] MEDS: NICOTINE 7 MG/24 HOURS TOPICAL PATCH TD SCH (10:21)
[2020-03-20] MEDS: PANTOPRAZOLE 20 MG TABLET PO SCH ×2 (10:21→21:04)
[2020-03-20] MEDS: DIVALPROEX SODIUM 500 MG TABLET E.C. PO SCH ×2 (10:21→21:04)
[2020-03-20] MEDS: SILVER SULFADIAZINE 1% TOP CREAM 50 GM JAR TP SCH (10:22)
[2020-03-20] MEDS: ALBUTEROL SO4 HFA INHALER IH PRN (12:02)
[2020-03-20] MEDS: MELATONIN 5 MG TABLETS PO SCH (21:04)
[2020-03-20] MEDS: IBUPROFEN 400 MG TABLET (FP) PO PRN (21:05)
[2020-03-20] MEDS: THIAMINE HCL 100 MG TABLET (FP) PO SCH (21:07)
[2020-03-21] MEDS ORDERED: METHADONE HCL 5 MG TABLET ONE (03:15)
[2020-03-21] MEDS ORDERED: METHADONE HCL 40 MG DISPERSABLE TABLET ONE (03:15)
[2020-03-21] MEDS ORDERED: METHADONE HCL 10 MG TABLET ONE (03:15)
[2020-03-21] MEDS: METHADONE 80 MG, METHADONE 30 MG, METHADONE 5 MG PO SCH (06:16)
[2020-03-21] MEDS: hydrOXYzine PAMOATE 50 MG CAPSULE (FP) PO PRN ×3 (06:17→21:58)
[2020-03-21] MEDS: METHOCARBAMOL 500 MG TABLET PO PRN ×3 (06:17→21:58)
[2020-03-21] MEDS: IBUPROFEN 400 MG TABLET (FP) PO PRN ×3 (06:18→21:59)
[2020-03-21] MEDS: SUCRALFATE 1 GM TABLET (FP) PO SCH ×3 (06:18→21:59)
[2020-03-21] MEDS: NICOTINE 7 MG/24 HOURS TOPICAL PATCH TD SCH (10:27)
[2020-03-21] MEDS: levETIRAcetam 500 MG TABLET (FP) PO SCH ×2 (10:27→21:58)
[2020-03-21] MEDS: DIVALPROEX SODIUM 500 MG TABLET E.C. PO SCH ×2 (10:27→21:59)
[2020-03-21] MEDS: PANTOPRAZOLE 20 MG TABLET PO SCH ×2 (10:27→21:58)
[2020-03-21] MEDS: PRENATAL VITAMINS W/ FOLIC ACID TABLET (FP) PO SCH (10:27)
[2020-03-21] MEDS: ESCITALOPRAM OXALATE 20 MG TABLET PO SCH (10:27)
[2020-03-21] MEDS: SILVER SULFADIAZINE 1% TOP CREAM 50 GM JAR TP SCH (10:29)
[2020-03-21] MEDS: SUVOREXANT 15 MG TABLET PO PRN (21:58)
[2020-03-21] MEDS: MELATONIN 5 MG TABLETS PO SCH (21:59)
[2020-03-21] MEDS: THIAMINE HCL 100 MG TABLET (FP) PO SCH (21:59)
[2020-03-22] MEDS ORDERED: METHADONE HCL 5 MG TABLET ONE (03:50)
[2020-03-22] MEDS ORDERED: METHADONE HCL 10 MG TABLET ONE (03:50)
[2020-03-22] MEDS ORDERED: METHADONE HCL 40 MG DISPERSABLE TABLET ONE (03:50)
[2020-03-22] MEDS: hydrOXYzine PAMOATE 50 MG CAPSULE (FP) PO PRN ×3 (06:09→21:13)
[2020-03-22] MEDS: ACETAMINOPHEN 325 MG TABLET (FP) PO PRN ×2 (06:09→13:24)
[2020-03-22] MEDS: METHOCARBAMOL 500 MG TABLET PO PRN ×2 (06:09→21:13)
[2020-03-22] MEDS: METHADONE 80 MG, METHADONE 30 MG, METHADONE 5 MG PO SCH (06:10)
[2020-03-22] MEDS: SUCRALFATE 1 GM TABLET (FP) PO SCH ×3 (06:10→21:27)
[2020-03-22] MEDS: levETIRAcetam 500 MG TABLET (FP) PO SCH ×2 (10:19→21:13)
[2020-03-22] MEDS: ESCITALOPRAM OXALATE 20 MG TABLET PO SCH (10:19)
[2020-03-22] MEDS: DIVALPROEX SODIUM 500 MG TABLET E.C. PO SCH ×2 (10:19→21:13)
[2020-03-22] MEDS: PANTOPRAZOLE 20 MG TABLET PO SCH ×2 (10:19→21:13)
[2020-03-22] MEDS: PRENATAL VITAMINS W/ FOLIC ACID TABLET (FP) PO SCH (10:20)
[2020-03-22] MEDS: SILVER SULFADIAZINE 1% TOP CREAM 50 GM JAR TP SCH (10:20)
[2020-03-22] MEDS: NICOTINE 7 MG/24 HOURS TOPICAL PATCH TD SCH (10:20)
[2020-03-22] MEDS: ALBUTEROL SO4 HFA INHALER IH PRN (17:11)
[2020-03-22] MEDS: THIAMINE HCL 100 MG TABLET (FP) PO SCH (21:13)
[2020-03-22] MEDS: MELATONIN 5 MG TABLETS PO SCH (21:13)
[2020-03-23] MEDS: ALBUTEROL SO4 HFA INHALER IH PRN ×2 (02:45→10:15)
[2020-03-23] MEDS ORDERED: SUVOREXANT 10 MG TABLET PO ONE (02:50)
[2020-03-23] MEDS ORDERED: METHADONE HCL 5 MG TABLET ONE (03:48)
[2020-03-23] MEDS ORDERED: METHADONE HCL 10 MG TABLET ONE (03:49)
[2020-03-23] MEDS ORDERED: METHADONE HCL 40 MG DISPERSABLE TABLET ONE (03:49)
[2020-03-23] MEDS: SUCRALFATE 1 GM TABLET (FP) PO SCH ×3 (06:05→22:01)
[2020-03-23] MEDS: METHADONE 80 MG, METHADONE 30 MG, METHADONE 5 MG PO SCH (06:05)
[2020-03-23] MEDS: METHOCARBAMOL 500 MG TABLET PO PRN ×3 (06:05→22:01)
[2020-03-23] MEDS: hydrOXYzine PAMOATE 50 MG CAPSULE (FP) PO PRN ×2 (06:05→22:01)
[2020-03-23] MEDS: ACETAMINOPHEN 325 MG TABLET (FP) PO PRN ×2 (06:06→13:53)
[2020-03-23] MEDS: DIVALPROEX SODIUM 500 MG TABLET E.C. PO SCH ×2 (10:13→22:01)
[2020-03-23] MEDS: PANTOPRAZOLE 20 MG TABLET PO SCH ×2 (10:13→22:01)
[2020-03-23] MEDS: NICOTINE 7 MG/24 HOURS TOPICAL PATCH TD SCH (10:13)
[2020-03-23] MEDS: PRENATAL VITAMINS W/ FOLIC ACID TABLET (FP) PO SCH (10:13)
[2020-03-23] MEDS: levETIRAcetam 500 MG TABLET (FP) PO SCH ×2 (10:13→22:01)
[2020-03-23] MEDS: ESCITALOPRAM OXALATE 20 MG TABLET PO SCH (10:13)
[2020-03-23] MEDS: SILVER SULFADIAZINE 1% TOP CREAM 50 GM JAR TP SCH (10:14)
[2020-03-23] MEDS ORDERED: SUVOREXANT 15 MG TABLET PO PRN (22:00)
[2020-03-23] MEDS: SUVOREXANT 10 MG TABLET PO PRN (22:01)
[2020-03-23] MEDS: MELATONIN 5 MG TABLETS PO SCH (22:01)
[2020-03-23] MEDS: THIAMINE HCL 100 MG TABLET (FP) PO SCH (22:01)
[2020-03-24] MEDS ORDERED: METHADONE HCL 40 MG DISPERSABLE TABLET ONE (03:44)
[2020-03-24] MEDS ORDERED: METHADONE HCL 5 MG TABLET ONE (03:44)
[2020-03-24] MEDS ORDERED: METHADONE HCL 10 MG TABLET ONE (03:44)
[2020-03-24] MEDS: ACETAMINOPHEN 325 MG TABLET (FP) PO PRN ×2 (06:12→23:58)
[2020-03-24] MEDS: hydrOXYzine PAMOATE 50 MG CAPSULE (FP) PO PRN ×2 (06:13→21:04)
[2020-03-24] MEDS: METHOCARBAMOL 500 MG TABLET PO PRN ×2 (06:13→21:04)
[2020-03-24] MEDS: METHADONE 80 MG, METHADONE 30 MG, METHADONE 5 MG PO SCH (06:14)
[2020-03-24] MEDS: SUCRALFATE 1 GM TABLET (FP) PO SCH ×3 (06:25→21:47)
[2020-03-24] MEDS: PANTOPRAZOLE 20 MG TABLET PO SCH ×2 (10:24→21:04)
[2020-03-24] MEDS: DIVALPROEX SODIUM 500 MG TABLET E.C. PO SCH ×2 (10:24→21:04)
[2020-03-24] MEDS: FERROUS SO4 325 MG TABLET (FP) PO SCH (10:24)
[2020-03-24] MEDS: ESCITALOPRAM OXALATE 20 MG TABLET PO SCH (10:25)
[2020-03-24] MEDS: PRENATAL VITAMINS W/ FOLIC ACID TABLET (FP) PO SCH (10:25)
[2020-03-24] MEDS: SILVER SULFADIAZINE 1% TOP CREAM 50 GM JAR TP SCH (10:25)
[2020-03-24] MEDS: levETIRAcetam 500 MG TABLET (FP) PO SCH ×2 (10:25→21:04)
[2020-03-24] MEDS: NICOTINE 7 MG/24 HOURS TOPICAL PATCH TD SCH (10:25)
[2020-03-24] MEDS: IBUPROFEN 400 MG TABLET (FP) PO PRN (10:26)
[2020-03-24] MEDS: ALBUTEROL SO4 HFA INHALER IH PRN (13:08)
[2020-03-24] MEDS: MELATONIN 5 MG TABLETS PO SCH (21:04)
[2020-03-24] MEDS: SUVOREXANT 10 MG TABLET PO PRN (21:05)
[2020-03-24] MEDS: THIAMINE HCL 100 MG TABLET (FP) PO SCH (21:47)
[2020-03-25] MEDS ORDERED: METHADONE HCL 5 MG TABLET ONE (03:13)
[2020-03-25] MEDS ORDERED: METHADONE HCL 10 MG TABLET ONE (03:13)
[2020-03-25] MEDS ORDERED: METHADONE HCL 40 MG DISPERSABLE TABLET ONE (03:14)
[2020-03-25 05:59] VITALS: BP 129/89; PULSE 78; TEMP 97.7
[2020-03-25] MEDS: IBUPROFEN 400 MG TABLET (FP) PO PRN (06:02)
[2020-03-25] MEDS: METHADONE 80 MG, METHADONE 30 MG, METHADONE 5 MG PO SCH (06:03)
[2020-03-25] MEDS: hydrOXYzine PAMOATE 50 MG CAPSULE (FP) PO PRN (06:03)
[2020-03-25] MEDS: SUCRALFATE 1 GM TABLET (FP) PO SCH (06:03)
[2020-03-25] MEDS: METHOCARBAMOL 500 MG TABLET PO PRN (06:03)
[2020-03-25] MEDS: levETIRAcetam 500 MG TABLET (FP) PO SCH (09:07)
[2020-03-25] MEDS: ESCITALOPRAM OXALATE 20 MG TABLET PO SCH (09:07)
[2020-03-25] MEDS: FERROUS SO4 325 MG TABLET (FP) PO SCH (09:07)
[2020-03-25] MEDS: DIVALPROEX SODIUM 500 MG TABLET E.C. PO SCH (09:07)
[2020-03-25] MEDS: PANTOPRAZOLE 20 MG TABLET PO SCH (09:07)
[2020-03-25] MEDS: NICOTINE 7 MG/24 HOURS TOPICAL PATCH TD SCH (09:08)
[2020-03-25] MEDS: PRENATAL VITAMINS W/ FOLIC ACID TABLET (FP) PO SCH (09:08)
[2020-03-25] MEDS: SILVER SULFADIAZINE 1% TOP CREAM 50 GM JAR TP SCH (09:08)
== END 2020-03-25 09:22 | disposition home or self-care (01) | DRG 772 ==
LOC: YASAS 12:50 → Y5N 12:51
PROVIDERS: ADMIT Allergy & Immunology; ATTEND Allergy & Immunology
PROC: HZ42ZZZ Group Counseling for Substance Abuse Treatment, Cognitive-Behavioral (ICD-10-PCS; principal; 2020-02-28)
DX: F11.20 Opioid dependence, uncomplicated (principal); F14.20 Cocaine dependence, uncomplicated; F13.20 Sedative, hypnotic or anxiolytic dependence, uncomplicated; F17.210 Nicotine dependence, cigarettes, uncomplicated; F32.9 Major depressive disorder, single episode, unspecified; K21.9 Gastro-esophageal reflux disease without esophagitis; J45.909 Unspecified asthma, uncomplicated; K02.9 Dental caries, unspecified; K05.10 Chronic gingivitis, plaque induced; Z87.828 Personal history of other (healed) physical injury and trauma; Z98.890 Other specified postprocedural states; Z56.0 Unemployment, unspecified; Z88.0 Allergy status to penicillin
CPT/HCPCS: 36415; 80164; 80177; 85027; 85610

== ENCOUNTER 2020-04-26 09:52 | Inpatient (IN) | payer OTHER ==
[2020-04-26 13:11] VITALS: BMI 36.5
[2020-04-26] MEDS ORDERED: MAGNESIUM HYDROX 2400MG/30ML ORAL SUSPENSION 30 ML CUP PO PRN (13:11)
[2020-04-26] MEDS ORDERED: MAGNESIUM CITRATE 300 ML BOTTLE PO PRN (13:11)
[2020-04-26] MEDS ORDERED: ACETAMINOPHEN 325 MG TABLET (FP) PO PRN (13:11)
[2020-04-26] MEDS ORDERED: BISMUTH SUBSALICYLATE 524 MG/30 ML UD PO PRN (13:11)
[2020-04-26] MEDS ORDERED: MENTHOL/PHENOL 1 EACH UD MM PRN (13:11)
[2020-04-26] MEDS ORDERED: NICOTINE POLACRILEX 2 MG GUM BUC PRN (13:11)
[2020-04-26] MEDS: ONDANSETRON *ODT* 4 MG TABLET SL PRN (14:34)
[2020-04-26] MEDS: PRENATAL VITAMINS W/ FOLIC ACID TABLET (FP) PO SCH (14:34)
[2020-04-26] MEDS: hydrOXYzine PAMOATE 25 MG CAPSULE (FP) PO SCH ×3 (14:34→22:34)
[2020-04-26] MEDS: diazePAM 5 MG TABLET PO PRN ×2 (14:36→20:01)
[2020-04-26 17:06] LABS: HEMATOCRIT 26.7 % (35.4-49); HEMOGLOBIN 8.6 GM/dL (11.7-16.9); MCH 26.3 pg (25.7-33.7); MCHC 32.2 g/dl (32.0-35.9); MEAN CELL VOLUME 81.5 fl (80-96); MEAN PLT VOLUME 9.7 fl (7.5-11.1); PLATELET COUNT 296 K/MM3 (134-434); RBC 3.27 M/mm3 (4.00-5.60); RDW 15.2 % (11.9-15.9); WHITE BLOOD COUNT 13.7 K/mm3 (4.0-10.0)
[2020-04-26 17:09] LABS: POTASSIUM 4.5 mmol/L (3.5-5.1)
[2020-04-26 17:11] LABS: ALBUMIN 3.9 g/dl (3.4-5.0); BLOOD UREA NITROGEN 25.3 mg/dL (7-18); CALCIUM 9.3 mg/dL (8.5-10.1)
[2020-04-26 17:15] LABS: CREATININE 1.1 mg/dL (0.55-1.3)
[2020-04-26 17:16] LABS: BILIRUBIN,TOTAL 0.2 mg/dL (0.2-1); TOT PROT 7.4 g/dl (6.4-8.2)
[2020-04-26] MEDS: IBUPROFEN 400 MG TABLET (FP) PO PRN (17:20)
[2020-04-26] MEDS: diazePAM 5 MG TABLET PO SCH ×2 (17:21→22:33)
[2020-04-26] MEDS: METHOCARBAMOL 500 MG TABLET PO PRN (17:22)
[2020-04-26] MEDS: MAG HYDROX/AL HYDROX/SIMETH 30 ML UNIT-DOSE CUP PO PRN (17:25)
[2020-04-26 18:08] LABS: HIV INTERPRETATION NEGATIVE (NEGATIVE)
[2020-04-26] MEDS: ALBUTEROL SO4 HFA INHALER IH PRN (20:02)
[2020-04-26] MEDS: THIAMINE HCL 100 MG TABLET (FP) PO SCH (22:32)
[2020-04-26] MEDS: PANTOPRAZOLE 20 MG TABLET PO SCH (22:33)
[2020-04-26] MEDS: MELATONIN 5 MG TABLETS PO SCH (22:34)
[2020-04-26] MEDS: DIVALPROEX SODIUM 500 MG TABLET E.C. PO SCH (22:34)
[2020-04-27] MEDS: diazePAM 5 MG TABLET PO PRN ×3 (02:40→19:34)
[2020-04-27] MEDS: ONDANSETRON *ODT* 4 MG TABLET SL PRN ×2 (02:41→19:34)
[2020-04-27] MEDS: ALBUTEROL SO4 HFA INHALER IH PRN (02:43)
[2020-04-27] MEDS ORDERED: METHADONE HCL 40 MG DISPERSABLE TABLET ONE (04:38)
[2020-04-27] MEDS ORDERED: METHADONE HCL 10 MG TABLET ONE (04:38)
[2020-04-27] MEDS ORDERED: METHADONE HCL 5 MG TABLET ONE (04:39)
[2020-04-27] MEDS ORDERED: METHADONE HCL 40 MG DISPERSABLE TABLET PO SCH (06:00)
[2020-04-27] MEDS: diazePAM 5 MG TABLET PO SCH ×4 (06:48→22:10)
[2020-04-27] MEDS: hydrOXYzine PAMOATE 25 MG CAPSULE (FP) PO SCH ×5 (06:49→22:11)
[2020-04-27] MEDS: METHADONE 80 MG, METHADONE 30 MG, METHADONE 5 MG PO SCH (06:49)
[2020-04-27] MEDS: METHOCARBAMOL 500 MG TABLET PO PRN ×2 (07:38→22:14)
[2020-04-27] MEDS: IBUPROFEN 400 MG TABLET (FP) PO PRN (07:40)
[2020-04-27] MEDS: NICOTINE 21 MG/24 HOURS TOPICAL PATCH TD SCH (10:12)
[2020-04-27] MEDS: PRENATAL VITAMINS W/ FOLIC ACID TABLET (FP) PO SCH (10:12)
[2020-04-27] MEDS: PANTOPRAZOLE 20 MG TABLET PO SCH ×2 (10:13→22:11)
[2020-04-27] MEDS: DIVALPROEX SODIUM 500 MG TABLET E.C. PO SCH ×2 (10:13→22:11)
[2020-04-27] MEDS: levETIRAcetam 500 MG TABLET (FP) PO SCH ×2 (10:13→22:11)
[2020-04-27] MEDS: MAG HYDROX/AL HYDROX/SIMETH 30 ML UNIT-DOSE CUP PO PRN (20:17)
[2020-04-27] MEDS ORDERED: DIVALPROEX SODIUM 500 MG TABLET E.C. PO SCH (22:00)
[2020-04-27] MEDS: MELATONIN 5 MG TABLETS PO SCH (22:10)
[2020-04-27] MEDS: busPIRone HCL 5 MG TABLET PO SCH (22:11)
[2020-04-27] MEDS: THIAMINE HCL 100 MG TABLET (FP) PO SCH (22:11)
[2020-04-28] MEDS: diazePAM 5 MG TABLET PO PRN ×3 (02:37→17:50)
[2020-04-28] MEDS: IBUPROFEN 400 MG TABLET (FP) PO PRN (02:38)
[2020-04-28] MEDS ORDERED: METHADONE HCL 10 MG TABLET ONE (04:31)
[2020-04-28] MEDS ORDERED: METHADONE HCL 5 MG TABLET ONE (04:31)
[2020-04-28] MEDS ORDERED: METHADONE HCL 40 MG DISPERSABLE TABLET ONE (04:31)
[2020-04-28] MEDS: METHADONE 80 MG, METHADONE 30 MG, METHADONE 5 MG PO SCH (05:17)
[2020-04-28] MEDS: hydrOXYzine PAMOATE 25 MG CAPSULE (FP) PO SCH ×5 (05:17→22:00)
[2020-04-28] MEDS: diazePAM 5 MG TABLET PO SCH ×3 (05:17→22:01)
[2020-04-28] MEDS: busPIRone HCL 5 MG TABLET PO SCH ×3 (05:18→22:03)
[2020-04-28] MEDS: METHOCARBAMOL 500 MG TABLET PO PRN (05:21)
[2020-04-28] MEDS: ALBUTEROL SO4 HFA INHALER IH PRN ×2 (09:40→13:52)
[2020-04-28] MEDS: PRENATAL VITAMINS W/ FOLIC ACID TABLET (FP) PO SCH (10:14)
[2020-04-28] MEDS: PANTOPRAZOLE 20 MG TABLET PO SCH ×2 (10:15→22:03)
[2020-04-28] MEDS: ESCITALOPRAM OXALATE 10 MG TABLET PO SCH (10:15)
[2020-04-28] MEDS: levETIRAcetam 500 MG TABLET (FP) PO SCH ×2 (10:15→22:01)
[2020-04-28] MEDS: DIVALPROEX SODIUM 500 MG TABLET E.C. PO SCH ×2 (10:15→22:03)
[2020-04-28] MEDS: NICOTINE 21 MG/24 HOURS TOPICAL PATCH TD SCH (10:15)
[2020-04-28] MEDS: METHOCARBAMOL 750 MG TAB PO PRN (12:26)
[2020-04-28] MEDS: IBUPROFEN 600 MG TABLET (FP) PO PRN (12:27)
[2020-04-28 13:01] LABS: BASO % 0.3 % (0-2.0); EOS % 3.1 % (0-4.5); HEMATOCRIT 26.2 % (35.4-49); HEMOGLOBIN 8.4 GM/dL (11.7-16.9); LYMPH % 35.9 % (8-40); MCH 26.6 pg (25.7-33.7); MCHC 32.2 g/dl (32.0-35.9); MEAN CELL VOLUME 82.9 fl (80-96); MEAN PLT VOLUME 9.9 fl (7.5-11.1); MONO % 8.7 % (3.8-10.2); PLATELET COUNT 307 K/MM3 (134-434); RBC 3.16 M/mm3 (4.00-5.60); RDW 15.3 % (11.9-15.9)
[2020-04-28] MEDS: ACETAMINOPHEN 325 MG TABLET (FP) PO PRN (17:52)
[2020-04-28] MEDS: THIAMINE HCL 100 MG TABLET (FP) PO SCH (22:00)
[2020-04-28] MEDS: MELATONIN 5 MG TABLETS PO SCH (22:00)
[2020-04-28] MEDS: SUVOREXANT 10 MG TABLET PO PRN (22:01)
[2020-04-29] MEDS: diazePAM 5 MG TABLET PO PRN ×3 (03:19→13:06)
[2020-04-29] MEDS: IBUPROFEN 600 MG TABLET (FP) PO PRN ×2 (03:21→11:18)
[2020-04-29] MEDS ORDERED: METHADONE HCL 10 MG TABLET ONE (04:28)
[2020-04-29] MEDS ORDERED: METHADONE HCL 40 MG DISPERSABLE TABLET ONE (04:28)
[2020-04-29] MEDS ORDERED: METHADONE HCL 5 MG TABLET ONE (04:29)
[2020-04-29] MEDS: hydrOXYzine PAMOATE 25 MG CAPSULE (FP) PO SCH ×5 (05:17→22:20)
[2020-04-29] MEDS: diazePAM 5 MG TABLET PO SCH ×2 (05:17→17:12)
[2020-04-29] MEDS: METHOCARBAMOL 750 MG TAB PO PRN ×3 (05:18→22:25)
[2020-04-29] MEDS: METHADONE 80 MG, METHADONE 30 MG, METHADONE 5 MG PO SCH (05:19)
[2020-04-29] MEDS: busPIRone HCL 5 MG TABLET PO SCH ×3 (05:23→22:20)
[2020-04-29 09:52] LABS: POTASSIUM 4.8 mmol/L (3.5-5.1)
[2020-04-29] MEDS: PRENATAL VITAMINS W/ FOLIC ACID TABLET (FP) PO SCH (10:12)
[2020-04-29] MEDS: levETIRAcetam 500 MG TABLET (FP) PO SCH ×2 (10:13→22:21)
[2020-04-29] MEDS: DIVALPROEX SODIUM 500 MG TABLET E.C. PO SCH ×2 (10:13→22:20)
[2020-04-29] MEDS: PANTOPRAZOLE 20 MG TABLET PO SCH ×2 (10:13→22:20)
[2020-04-29] MEDS: ESCITALOPRAM OXALATE 10 MG TABLET PO SCH (10:13)
[2020-04-29] MEDS: NICOTINE 21 MG/24 HOURS TOPICAL PATCH TD SCH (10:14)
[2020-04-29 10:25] LABS: BLOOD UREA NITROGEN 19.2 mg/dL (7-18); CALCIUM 9.2 mg/dL (8.5-10.1)
[2020-04-29 10:28] LABS: CREATININE 0.7 mg/dL (0.55-1.3)
[2020-04-29] MEDS: ALBUTEROL SO4 HFA INHALER IH PRN ×2 (13:06→17:14)
[2020-04-29] MEDS: MAG HYDROX/AL HYDROX/SIMETH 30 ML UNIT-DOSE CUP PO PRN (18:10)
[2020-04-29] MEDS: THIAMINE HCL 100 MG TABLET (FP) PO SCH (22:20)
[2020-04-29] MEDS: FERROUS SO4 325 MG TABLET (FP) PO SCH (22:20)
[2020-04-29] MEDS: MELATONIN 5 MG TABLETS PO SCH (22:22)
[2020-04-29] MEDS: SUVOREXANT 10 MG TABLET PO PRN (22:25)
[2020-04-30] MEDS: ACETAMINOPHEN 325 MG TABLET (FP) PO PRN ×2 (03:23→10:32)
[2020-04-30] MEDS ORDERED: METHADONE HCL 10 MG TABLET ONE (04:52)
[2020-04-30] MEDS ORDERED: METHADONE HCL 40 MG DISPERSABLE TABLET ONE (04:52)
[2020-04-30] MEDS ORDERED: METHADONE HCL 5 MG TABLET ONE (04:53)
[2020-04-30] MEDS: busPIRone HCL 5 MG TABLET PO SCH ×2 (05:21→14:10)
[2020-04-30] MEDS: METHADONE 80 MG, METHADONE 30 MG, METHADONE 5 MG PO SCH (05:21)
[2020-04-30] MEDS: METHOCARBAMOL 750 MG TAB PO PRN ×2 (05:24→10:28)
[2020-04-30] MEDS: hydrOXYzine PAMOATE 25 MG CAPSULE (FP) PO SCH ×3 (05:25→14:11)
[2020-04-30] MEDS ORDERED: diazePAM 5 MG TABLET PO ONE (06:00)
[2020-04-30] MEDS ORDERED: BACITRACIN 0.9 GM PACKET ONE (07:05)
[2020-04-30 09:11] VITALS: BP 127/82; PULSE 86; TEMP 96.9
[2020-04-30] MEDS: NICOTINE 21 MG/24 HOURS TOPICAL PATCH TD SCH (10:22)
[2020-04-30] MEDS: ESCITALOPRAM OXALATE 10 MG TABLET PO SCH (10:24)
[2020-04-30] MEDS: levETIRAcetam 500 MG TABLET (FP) PO SCH (10:24)
[2020-04-30] MEDS: FERROUS SO4 325 MG TABLET (FP) PO SCH (10:24)
[2020-04-30] MEDS: PRENATAL VITAMINS W/ FOLIC ACID TABLET (FP) PO SCH (10:24)
[2020-04-30] MEDS: DIVALPROEX SODIUM 500 MG TABLET E.C. PO SCH (10:24)
[2020-04-30] MEDS: PANTOPRAZOLE 20 MG TABLET PO SCH (10:25)
== END 2020-04-30 15:49 | disposition other institution (70) | DRG 773 ==
LOC: YASAS 09:52 → Y3N 13:23
PROVIDERS: ADMIT Allergy & Immunology; ATTEND Allergy & Immunology
PROC: HZ2ZZZZ Detoxification Services for Substance Abuse Treatment (ICD-10-PCS; principal; 2020-04-26)
DX: F10.230 Alcohol dependence with withdrawal, uncomplicated (principal); F13.20 Sedative, hypnotic or anxiolytic dependence, uncomplicated; F11.20 Opioid dependence, uncomplicated; F17.213 Nicotine dependence, cigarettes, with withdrawal; F19.282 Other psychoactive substance dependence with psychoactive substance-induced sleep disorder; F19.280 Other psychoactive substance dependence with psychoactive substance-induced anxiety disorder; F19.24 Other psychoactive substance dependence with psychoactive substance-induced mood disorder; F31.9 Bipolar disorder, unspecified; F41.9 Anxiety disorder, unspecified; G40.909 Epilepsy, unspecified, not intractable, without status epilepticus; G47.00 Insomnia, unspecified; J45.909 Unspecified asthma, uncomplicated; Z91.5 Personal history of self-harm; Z89.012 Acquired absence of left thumb; Z88.0 Allergy status to penicillin; Z56.0 Unemployment, unspecified; Z59.0 Homelessness
CPT/HCPCS: 36415; 80048; 80053; 80164; 80177; 85025; 85027; 86780; 87389; C9803; Q0162; U0003

== ENCOUNTER 2020-04-30 15:17 | Inpatient (IN) | payer OTHER ==
[2020-04-30] MEDS ORDERED: MAGNESIUM HYDROX 2400MG/30ML ORAL SUSPENSION 30 ML CUP PO PRN (16:30)
[2020-04-30] MEDS ORDERED: MAG HYDROX/AL HYDROX/SIMETH 30 ML UNIT-DOSE CUP PO PRN (16:30)
[2020-04-30] MEDS ORDERED: LOPERAMIDE HCL 2 MG CAPSULE PO PRN (16:30)
[2020-04-30] MEDS ORDERED: P-EPHED 60MG/TRIPROLIDI 2.5MG TABLET PO PRN (16:30)
[2020-04-30] MEDS ORDERED: NICOTINE POLACRILEX 2 MG GUM BUC PRN (16:30)
[2020-04-30] MEDS ORDERED: MENTHOL/PHENOL 1 EACH UD MM PRN (16:30)
[2020-04-30] MEDS ORDERED: guaiFENesin 200 MG/10 ML 10 ML UNIT-DOSE CUPS PO PRN (16:30)
[2020-04-30] MEDS ORDERED: MAGNESIUM CITRATE 300 ML BOTTLE PO PRN (16:30)
[2020-04-30] MEDS ORDERED: ACETAMINOPHEN 325 MG TABLET (FP) PO PRN (16:30)
[2020-04-30] MEDS ORDERED: ALBUTEROL SO4 HFA INHALER IH PRN (16:33)
[2020-04-30] MEDS ORDERED: SUVOREXANT 10 MG TABLET PO PRN (16:51)
[2020-04-30] MEDS: FERROUS SO4 325 MG TABLET (FP) PO SCH (21:19)
[2020-04-30] MEDS: PANTOPRAZOLE 20 MG TABLET PO SCH (21:20)
[2020-04-30] MEDS: hydrOXYzine PAMOATE 25 MG CAPSULE (FP) PO SCH (21:20)
[2020-04-30] MEDS: DIVALPROEX SODIUM 500 MG TABLET E.C. PO SCH (21:20)
[2020-04-30] MEDS: THIAMINE HCL 100 MG TABLET (FP) PO SCH (21:22)
[2020-04-30] MEDS: BACITRACIN 0.9 GM PACKET TP SCH (21:23)
[2020-04-30] MEDS ORDERED: MELATONIN 5 MG TABLETS PO SCH (22:00)
[2020-05-01] MEDS ORDERED: METHADONE HCL 40 MG DISPERSABLE TABLET PO SCH (06:00)
[2020-05-01] MEDS ORDERED: METHADONE HCL 10 MG TABLET ONE (06:26)
[2020-05-01] MEDS ORDERED: METHADONE HCL 40 MG DISPERSABLE TABLET ONE (06:26)
[2020-05-01] MEDS ORDERED: METHADONE HCL 5 MG TABLET ONE (06:26)
[2020-05-01] MEDS ORDERED: PT OWN MED DRAWER 7, Y5N ONE ×4 (06:27→21:30)
[2020-05-01] MEDS: hydrOXYzine PAMOATE 25 MG CAPSULE (FP) PO SCH ×5 (06:29→21:24)
[2020-05-01] MEDS: METHADONE 80 MG, METHADONE 30 MG, METHADONE 5 MG PO SCH (06:29)
[2020-05-01] MEDS: IBUPROFEN 400 MG TABLET (FP) PO PRN (06:32)
[2020-05-01 06:53] VITALS: TEMP 97.8
[2020-05-01] MEDS ORDERED: NICOTINE 7 MG/24 HOURS TOPICAL PATCH TD SCH (10:00)
[2020-05-01] MEDS: ESCITALOPRAM OXALATE 10 MG TABLET PO SCH (10:05)
[2020-05-01] MEDS: levETIRAcetam 500 MG TABLET (FP) PO SCH (10:05)
[2020-05-01] MEDS: PRENATAL VITAMINS W/ FOLIC ACID TABLET (FP) PO SCH (10:05)
[2020-05-01] MEDS: DIVALPROEX SODIUM 500 MG TABLET E.C. PO SCH ×2 (10:05→21:24)
[2020-05-01] MEDS: PANTOPRAZOLE 20 MG TABLET PO SCH ×2 (10:05→21:24)
[2020-05-01] MEDS: FERROUS SO4 325 MG TABLET (FP) PO SCH ×2 (10:06→21:24)
[2020-05-01] MEDS: NICOTINE 7 MG/24 HOURS TOPICAL PATCH TD SCH (10:06)
[2020-05-01] MEDS: BACITRACIN 0.9 GM PACKET TP SCH ×2 (10:06→21:24)
[2020-05-01] MEDS: THIAMINE HCL 100 MG TABLET (FP) PO SCH (21:24)
[2020-05-01] MEDS ORDERED: levETIRAcetam 500 MG TABLET (FP) PO SCH (22:00)
[2020-05-01] MEDS ORDERED: SUVOREXANT 5 MG TABLET PO PRN (22:00)
[2020-05-02] MEDS ORDERED: METHADONE HCL 10 MG TABLET ONE (04:00)
[2020-05-02] MEDS ORDERED: METHADONE HCL 5 MG TABLET ONE (04:00)
[2020-05-02] MEDS ORDERED: METHADONE HCL 40 MG DISPERSABLE TABLET ONE (04:00)
[2020-05-02] MEDS: METHADONE 80 MG, METHADONE 30 MG, METHADONE 5 MG PO SCH (06:18)
[2020-05-02] MEDS: hydrOXYzine PAMOATE 25 MG CAPSULE (FP) PO SCH ×4 (06:19→17:50)
[2020-05-02 06:48] VITALS: BP 138/82; PULSE 93
[2020-05-02] MEDS: PRENATAL VITAMINS W/ FOLIC ACID TABLET (FP) PO SCH (10:31)
[2020-05-02] MEDS: BACITRACIN 0.9 GM PACKET TP SCH (10:32)
[2020-05-02] MEDS: DIVALPROEX SODIUM 500 MG TABLET E.C. PO SCH (10:32)
[2020-05-02] MEDS: PANTOPRAZOLE 20 MG TABLET PO SCH (10:32)
[2020-05-02] MEDS: ESCITALOPRAM OXALATE 10 MG TABLET PO SCH (10:32)
[2020-05-02] MEDS: FERROUS SO4 325 MG TABLET (FP) PO SCH (10:32)
[2020-05-02] MEDS: levETIRAcetam 500 MG TABLET (FP) PO SCH (10:32)
[2020-05-02] MEDS: NICOTINE 7 MG/24 HOURS TOPICAL PATCH TD SCH (10:33)
[2020-05-02] MEDS: IBUPROFEN 400 MG TABLET (FP) PO PRN (10:34)
[2020-05-02] MEDS ORDERED: PT OWN MED DRAWER 7, Y5N ONE (17:27)
== END 2020-05-02 17:25 | disposition left against medical advice (07) | DRG 770 ==
LOC: YASAS 15:17 → Y3E 15:18
PROVIDERS: ADMIT Allergy & Immunology; ATTEND Allergy & Immunology
PROC: HZ42ZZZ Group Counseling for Substance Abuse Treatment, Cognitive-Behavioral (ICD-10-PCS; principal; 2020-04-30)
DX: F11.20 Opioid dependence, uncomplicated (principal); F13.20 Sedative, hypnotic or anxiolytic dependence, uncomplicated; F10.10 Alcohol abuse, uncomplicated; F17.210 Nicotine dependence, cigarettes, uncomplicated; F31.9 Bipolar disorder, unspecified; G40.909 Epilepsy, unspecified, not intractable, without status epilepticus; J45.909 Unspecified asthma, uncomplicated; K21.9 Gastro-esophageal reflux disease without esophagitis; E66.9 Obesity, unspecified; Z68.38 Body mass index [BMI] 38.0-38.9, adult; Z88.0 Allergy status to penicillin

== ENCOUNTER 2020-06-23 11:21 | Inpatient (IN) | payer OTHER ==
[2020-06-23 13:14] VITALS: BMI 38.5
[2020-06-23] MEDS ORDERED: PNEUMOC 13-VAL CONJ-DIP CRM/PF 0.5 ML DISP.SYRIN IM ONE (15:09)
[2020-06-23] MEDS ORDERED: ACETAMINOPHEN 325 MG TABLET (FP) PO PRN (15:38)
[2020-06-23] MEDS ORDERED: MAGNESIUM HYDROX 2400MG/30ML ORAL SUSPENSION 30 ML CUP PO PRN (15:38)
[2020-06-23] MEDS ORDERED: MENTHOL/PHENOL 1 EACH UD MM PRN (15:38)
[2020-06-23] MEDS ORDERED: MAGNESIUM CITRATE 300 ML BOTTLE PO PRN (15:38)
[2020-06-23] MEDS ORDERED: ONDANSETRON *ODT* 4 MG TABLET SL PRN (15:38)
[2020-06-23] MEDS ORDERED: ACETAMINOPHEN 325 MG TABLET (FP) ONE (15:59)
[2020-06-23] MEDS: ACETAMINOPHEN 325 MG TABLET (FP) PO PRN (16:02)
[2020-06-23 17:23] LABS: HEMOGLOBIN 7.9 GM/dL (11.7-16.9); MCH 22.8 pg (25.7-33.7); MCHC 31.5 g/dl (32.0-35.9); MEAN CELL VOLUME 72.4 fl (80-96); MEAN PLT VOLUME 9.3 fl (7.5-11.1); PLATELET COUNT 350 K/MM3 (134-434); RBC 3.45 M/mm3 (4.00-5.60); RDW 17.8 % (11.9-15.9); WHITE BLOOD COUNT 8.5 K/mm3 (4.0-10.0)
[2020-06-23] MEDS: NICOTINE 14 MG/24 HOURS TOPICAL PATCH TD SCH (17:25)
[2020-06-23] MEDS: diazePAM 5 MG TABLET PO SCH ×2 (17:26→22:14)
[2020-06-23] MEDS: PRENATAL VITAMINS W/ FOLIC ACID TABLET (FP) PO SCH (17:26)
[2020-06-23] MEDS: hydrOXYzine PAMOATE 25 MG CAPSULE (FP) PO SCH ×2 (17:28→22:14)
[2020-06-23] MEDS: IBUPROFEN 400 MG TABLET (FP) PO PRN (17:31)
[2020-06-23 17:49] LABS: ALBUMIN 3.3 g/dl (3.4-5.0); BILIRUBIN,TOTAL 0.2 mg/dL (0.2-1); BLOOD UREA NITROGEN 17.3 mg/dL (7-18); CALCIUM 8.4 mg/dL (8.5-10.1); CREATININE 0.8 mg/dL (0.55-1.3); TOT PROT 7.1 g/dl (6.4-8.2)
[2020-06-23 18:22] LABS: HIV INTERPRETATION NEGATIVE (NEGATIVE)
[2020-06-23] MEDS: MAG HYDROX/AL HYDROX/SIMETH 30 ML UNIT-DOSE CUP PO PRN (19:00)
[2020-06-23] MEDS: diazePAM 5 MG TABLET PO PRN (20:56)
[2020-06-23] MEDS: MELATONIN 5 MG TABLETS PO SCH (22:14)
[2020-06-23] MEDS: THIAMINE HCL 100 MG TABLET (FP) PO SCH (22:14)
[2020-06-23] MEDS ORDERED: levETIRAcetam 500 MG TABLET (FP) PO SCH (23:07)
[2020-06-23] MEDS: levETIRAcetam 500 MG TABLET (FP) PO SCH (23:24)
[2020-06-23] MEDS: BISMUTH SUBSALICYLATE 524 MG/30 ML UD PO PRN (23:27)
[2020-06-24] MEDS: diazePAM 5 MG TABLET PO SCH ×5 (05:59→22:20)
[2020-06-24] MEDS: hydrOXYzine PAMOATE 25 MG CAPSULE (FP) PO SCH ×5 (05:59→22:21)
[2020-06-24] MEDS: diazePAM 5 MG TABLET PO PRN ×3 (06:01→19:19)
[2020-06-24] MEDS ORDERED: METHADONE HCL 10 MG TABLET ONE (07:30)
[2020-06-24] MEDS ORDERED: METHADONE HCL 40 MG DISPERSABLE TABLET PO SCH (07:30)
[2020-06-24] MEDS ORDERED: METHADONE HCL 40 MG DISPERSABLE TABLET ONE (07:31)
[2020-06-24] MEDS ORDERED: METHADONE HCL 5 MG TABLET ONE (07:31)
[2020-06-24] MEDS: ACETAMINOPHEN 325 MG TABLET (FP) PO PRN (07:33)
[2020-06-24] MEDS: BISMUTH SUBSALICYLATE 524 MG/30 ML UD PO PRN (07:35)
[2020-06-24] MEDS: METHADONE 80 MG, METHADONE 30 MG, METHADONE 5 MG PO SCH (07:37)
[2020-06-24] MEDS: PRENATAL VITAMINS W/ FOLIC ACID TABLET (FP) PO SCH (10:09)
[2020-06-24] MEDS: PANTOPRAZOLE 20 MG TABLET PO SCH ×2 (10:09→21:25)
[2020-06-24] MEDS: levETIRAcetam 500 MG TABLET (FP) PO SCH ×2 (10:10→22:21)
[2020-06-24] MEDS: NICOTINE 14 MG/24 HOURS TOPICAL PATCH TD SCH (10:11)
[2020-06-24] MEDS: METHOCARBAMOL 500 MG TABLET PO PRN (10:12)
[2020-06-24] MEDS: IBUPROFEN 400 MG TABLET (FP) PO PRN (11:59)
[2020-06-24] MEDS ORDERED: PNEUMOCOCCAL 23 VACCINE 0.5 ML VIAL IM ONE (12:00)
[2020-06-24] MEDS: MAG HYDROX/AL HYDROX/SIMETH 30 ML UNIT-DOSE CUP PO PRN (16:23)
[2020-06-24] MEDS ORDERED: levETIRAcetam 500 MG TABLET (FP) PO SCH (22:00)
[2020-06-24] MEDS: MELATONIN 5 MG TABLETS PO SCH (22:21)
[2020-06-24] MEDS: DIVALPROEX SODIUM 500 MG TABLET E.C. PO SCH (22:21)
[2020-06-24] MEDS: QUEtiapine FUMARATE 100 MG TABLET (FP) PO SCH (22:21)
[2020-06-24] MEDS: THIAMINE HCL 100 MG TABLET (FP) PO SCH (22:21)
[2020-06-25] MEDS: IBUPROFEN 400 MG TABLET (FP) PO PRN (00:51)
[2020-06-25] MEDS: diazePAM 5 MG TABLET PO PRN ×4 (00:51→17:45)
[2020-06-25] MEDS: MAG HYDROX/AL HYDROX/SIMETH 30 ML UNIT-DOSE CUP PO PRN ×3 (00:54→17:46)
[2020-06-25] MEDS ORDERED: METHADONE HCL 5 MG TABLET ONE (04:32)
[2020-06-25] MEDS ORDERED: METHADONE HCL 40 MG DISPERSABLE TABLET ONE (04:32)
[2020-06-25] MEDS ORDERED: METHADONE HCL 10 MG TABLET ONE (04:32)
[2020-06-25] MEDS: diazePAM 5 MG TABLET PO SCH ×3 (05:24→22:08)
[2020-06-25] MEDS: hydrOXYzine PAMOATE 25 MG CAPSULE (FP) PO SCH ×5 (05:25→22:10)
[2020-06-25] MEDS: METHADONE 80 MG, METHADONE 30 MG, METHADONE 5 MG PO SCH (05:25)
[2020-06-25] MEDS: ACETAMINOPHEN 325 MG TABLET (FP) PO PRN ×2 (07:32→22:10)
[2020-06-25] MEDS ORDERED: ESCITALOPRAM OXALATE 10 MG TABLET ONE (09:57)
[2020-06-25] MEDS: PANTOPRAZOLE 20 MG TABLET PO SCH ×2 (10:15→22:10)
[2020-06-25] MEDS: DIVALPROEX SODIUM 500 MG TABLET E.C. PO SCH ×2 (10:15→22:10)
[2020-06-25] MEDS: PRENATAL VITAMINS W/ FOLIC ACID TABLET (FP) PO SCH (10:15)
[2020-06-25] MEDS: levETIRAcetam 500 MG TABLET (FP) PO SCH ×2 (10:16→22:10)
[2020-06-25] MEDS: METHOCARBAMOL 500 MG TABLET PO PRN ×2 (10:16→22:12)
[2020-06-25] MEDS: ESCITALOPRAM OXALATE 20 MG TABLET PO SCH (10:17)
[2020-06-25] MEDS: NICOTINE 14 MG/24 HOURS TOPICAL PATCH TD SCH (10:17)
[2020-06-25 10:49] LABS: HEMATOCRIT 25.4 % (35.4-49); HEMOGLOBIN 8.1 GM/dL (11.7-16.9); MCH 22.7 pg (25.7-33.7); MCHC 31.7 g/dl (32.0-35.9); MEAN CELL VOLUME 71.5 fl (80-96); MEAN PLT VOLUME 9.2 fl (7.5-11.1); PLATELET COUNT 353 K/MM3 (134-434); RBC 3.55 M/mm3 (4.00-5.60); RDW 17.5 % (11.9-15.9); WHITE BLOOD COUNT 10.1 K/mm3 (4.0-10.0)
[2020-06-25 10:53] LABS: CALCIUM 8.3 mg/dL (8.5-10.1)
[2020-06-25 10:54] LABS: ALBUMIN 3.1 g/dl (3.4-5.0); BLOOD UREA NITROGEN 17.4 mg/dL (7-18)
[2020-06-25 10:55] LABS: INR 1.13 (0.83-1.09); PROTHROMBIN TIME (PATIENT) 13.9 SEC (9.7-13.0)
[2020-06-25 10:57] LABS: CREATININE 0.7 mg/dL (0.55-1.3)
[2020-06-25 10:59] LABS: BILIRUBIN,TOTAL 0.4 mg/dL (0.2-1); TOT PROT 6.3 g/dl (6.4-8.2)
[2020-06-25] MEDS: QUEtiapine FUMARATE 100 MG TABLET (FP) PO SCH (22:10)
[2020-06-25] MEDS: MELATONIN 5 MG TABLETS PO SCH (22:12)
[2020-06-25] MEDS: THIAMINE HCL 100 MG TABLET (FP) PO SCH (22:12)
[2020-06-26] MEDS: MAG HYDROX/AL HYDROX/SIMETH 30 ML UNIT-DOSE CUP PO PRN ×3 (01:13→18:37)
[2020-06-26] MEDS ORDERED: METHADONE HCL 10 MG TABLET ONE (04:50)
[2020-06-26] MEDS ORDERED: METHADONE HCL 40 MG DISPERSABLE TABLET ONE (04:51)
[2020-06-26] MEDS ORDERED: METHADONE HCL 5 MG TABLET ONE (04:51)
[2020-06-26] MEDS: diazePAM 5 MG TABLET PO SCH ×2 (05:54→17:37)
[2020-06-26] MEDS: METHADONE 80 MG, METHADONE 30 MG, METHADONE 5 MG PO SCH (05:55)
[2020-06-26] MEDS: hydrOXYzine PAMOATE 25 MG CAPSULE (FP) PO SCH ×5 (05:55→22:16)
[2020-06-26] MEDS ORDERED: ESCITALOPRAM OXALATE 10 MG TABLET ONE (09:08)
[2020-06-26] MEDS: PRENATAL VITAMINS W/ FOLIC ACID TABLET (FP) PO SCH (10:23)
[2020-06-26] MEDS: DIVALPROEX SODIUM 500 MG TABLET E.C. PO SCH ×2 (10:23→22:17)
[2020-06-26] MEDS: levETIRAcetam 500 MG TABLET (FP) PO SCH ×2 (10:24→22:17)
[2020-06-26] MEDS: NICOTINE 14 MG/24 HOURS TOPICAL PATCH TD SCH (10:24)
[2020-06-26] MEDS: ESCITALOPRAM OXALATE 20 MG TABLET PO SCH (10:24)
[2020-06-26] MEDS: diazePAM 5 MG TABLET PO PRN ×2 (10:25→14:28)
[2020-06-26] MEDS: METHOCARBAMOL 500 MG TABLET PO PRN (10:25)
[2020-06-26] MEDS: NICOTINE POLACRILEX 2 MG GUM BUC PRN (11:27)
[2020-06-26] MEDS: PANTOPRAZOLE 20 MG TABLET PO SCH ×2 (11:46→22:18)
[2020-06-26] MEDS: ALBUTEROL SO4 HFA INHALER IH PRN (18:37)
[2020-06-26] MEDS: QUEtiapine FUMARATE 100 MG TABLET (FP) PO SCH (22:17)
[2020-06-26] MEDS: DOCUSATE SODIUM 100 MG CAPSULE (FP) PO SCH (22:17)
[2020-06-26] MEDS: FERROUS SO4 325 MG TABLET (FP) PO SCH (22:17)
[2020-06-26] MEDS: THIAMINE HCL 100 MG TABLET (FP) PO SCH (22:18)
[2020-06-26] MEDS: MELATONIN 5 MG TABLETS PO SCH (22:18)
[2020-06-27] MEDS: MAG HYDROX/AL HYDROX/SIMETH 30 ML UNIT-DOSE CUP PO PRN ×3 (00:54→19:39)
[2020-06-27] MEDS ORDERED: METHADONE HCL 5 MG TABLET ONE (04:06)
[2020-06-27] MEDS ORDERED: METHADONE HCL 10 MG TABLET ONE (04:06)
[2020-06-27] MEDS ORDERED: METHADONE HCL 40 MG DISPERSABLE TABLET ONE (04:06)
[2020-06-27] MEDS: hydrOXYzine PAMOATE 25 MG CAPSULE (FP) PO SCH ×5 (05:18→22:14)
[2020-06-27] MEDS: METHADONE 80 MG, METHADONE 30 MG, METHADONE 5 MG PO SCH (05:19)
[2020-06-27] MEDS: diazePAM 5 MG TABLET PO SCH ×2 (05:20→17:35)
[2020-06-27] MEDS ORDERED: diazePAM 5 MG TABLET PO ONE (06:00)
[2020-06-27] MEDS ORDERED: ESCITALOPRAM OXALATE 10 MG TABLET ONE (09:49)
[2020-06-27] MEDS: BACITRACIN 0.9 GM PACKET TP SCH ×2 (10:06→22:12)
[2020-06-27] MEDS: PRENATAL VITAMINS W/ FOLIC ACID TABLET (FP) PO SCH (10:06)
[2020-06-27] MEDS: levETIRAcetam 500 MG TABLET (FP) PO SCH ×2 (10:07→22:12)
[2020-06-27] MEDS: ESCITALOPRAM OXALATE 20 MG TABLET PO SCH (10:07)
[2020-06-27] MEDS: DIVALPROEX SODIUM 500 MG TABLET E.C. PO SCH ×2 (10:07→22:12)
[2020-06-27] MEDS: FERROUS SO4 325 MG TABLET (FP) PO SCH ×2 (10:07→22:12)
[2020-06-27] MEDS: DOCUSATE SODIUM 100 MG CAPSULE (FP) PO SCH ×2 (10:07→22:12)
[2020-06-27] MEDS: PANTOPRAZOLE 20 MG TABLET PO SCH ×2 (10:08→22:12)
[2020-06-27] MEDS: NICOTINE 14 MG/24 HOURS TOPICAL PATCH TD SCH (10:10)
[2020-06-27] MEDS: ALBUTEROL SO4 HFA INHALER IH PRN (13:45)
[2020-06-27] MEDS ORDERED: SUCRALFATE 1 GM TABLET (FP) PO ONE (14:31)
[2020-06-27] MEDS: METHOCARBAMOL 500 MG TABLET PO PRN (17:37)
[2020-06-27] MEDS: SUCRALFATE 1 GM TABLET (FP) PO SCH ×2 (17:50→22:14)
[2020-06-27] MEDS: MELATONIN 5 MG TABLETS PO SCH (22:09)
[2020-06-27] MEDS: THIAMINE HCL 100 MG TABLET (FP) PO SCH (22:09)
[2020-06-27] MEDS: QUEtiapine FUMARATE 100 MG TABLET (FP) PO SCH (22:12)
[2020-06-27] MEDS ORDERED: BISMUTH SUBSALICYLATE 262 MG/15 ML BTL PO ONE (23:17)
[2020-06-27] MEDS: ACETAMINOPHEN 325 MG TABLET (FP) PO PRN (23:18)
[2020-06-28] MEDS ORDERED: METHADONE HCL 10 MG TABLET ONE (03:46)
[2020-06-28] MEDS ORDERED: METHADONE HCL 5 MG TABLET ONE (03:46)
[2020-06-28] MEDS ORDERED: METHADONE HCL 40 MG DISPERSABLE TABLET ONE (03:46)
[2020-06-28] MEDS: hydrOXYzine PAMOATE 25 MG CAPSULE (FP) PO SCH ×2 (05:28→10:15)
[2020-06-28] MEDS: METHADONE 80 MG, METHADONE 30 MG, METHADONE 5 MG PO SCH (05:28)
[2020-06-28] MEDS: METHOCARBAMOL 500 MG TABLET PO PRN ×2 (05:29→12:18)
[2020-06-28] MEDS ORDERED: diazePAM 5 MG TABLET PO ONE (06:00)
[2020-06-28] MEDS: SUCRALFATE 1 GM TABLET (FP) PO SCH ×2 (06:03→10:17)
[2020-06-28 09:47] VITALS: BP 129/87; PULSE 104; TEMP 96.8
[2020-06-28] MEDS: PANTOPRAZOLE 20 MG TABLET PO SCH (10:13)
[2020-06-28] MEDS: PRENATAL VITAMINS W/ FOLIC ACID TABLET (FP) PO SCH (10:13)
[2020-06-28] MEDS: levETIRAcetam 500 MG TABLET (FP) PO SCH (10:13)
[2020-06-28] MEDS: DIVALPROEX SODIUM 500 MG TABLET E.C. PO SCH (10:13)
[2020-06-28] MEDS: FERROUS SO4 325 MG TABLET (FP) PO SCH (10:13)
[2020-06-28] MEDS: DOCUSATE SODIUM 100 MG CAPSULE (FP) PO SCH (10:13)
[2020-06-28] MEDS: BACITRACIN 0.9 GM PACKET TP SCH (10:13)
[2020-06-28] MEDS: NICOTINE 14 MG/24 HOURS TOPICAL PATCH TD SCH (10:14)
[2020-06-28] MEDS: ESCITALOPRAM OXALATE 20 MG TABLET PO SCH (10:14)
[2020-06-28] MEDS: NICOTINE POLACRILEX 2 MG GUM BUC PRN (10:14)
[2020-06-28] MEDS: ACETAMINOPHEN 325 MG TABLET (FP) PO PRN (10:16)
[2020-06-28] MEDS: IBUPROFEN 400 MG TABLET (FP) PO PRN (12:18)
== END 2020-06-28 12:20 | disposition other institution (70) | DRG 773 ==
LOC: YASAS 11:21 → Y3N 15:57
PROVIDERS: ADMIT Allergy & Immunology; ATTEND Allergy & Immunology
PROC: HZ2ZZZZ Detoxification Services for Substance Abuse Treatment (ICD-10-PCS; principal; 2020-06-23)
DX: F10.230 Alcohol dependence with withdrawal, uncomplicated (principal); F11.20 Opioid dependence, uncomplicated; F14.20 Cocaine dependence, uncomplicated; F13.20 Sedative, hypnotic or anxiolytic dependence, uncomplicated; F17.210 Nicotine dependence, cigarettes, uncomplicated; F19.280 Other psychoactive substance dependence with psychoactive substance-induced anxiety disorder; F19.24 Other psychoactive substance dependence with psychoactive substance-induced mood disorder; D64.9 Anemia, unspecified; G40.909 Epilepsy, unspecified, not intractable, without status epilepticus; G47.00 Insomnia, unspecified; Z59.0 Homelessness; J45.909 Unspecified asthma, uncomplicated; K21.9 Gastro-esophageal reflux disease without esophagitis; Z89.012 Acquired absence of left thumb; Z88.0 Allergy status to penicillin; Z56.0 Unemployment, unspecified
CPT/HCPCS: 36415; 80053; 80164; 80177; 85027; 85610; 86780; 87389; C9803; Q0162; U0003; U0005

== ENCOUNTER 2020-06-28 12:27 | Inpatient (IN) | payer OTHER ==
[2020-06-28] MEDS ORDERED: LOPERAMIDE HCL 2 MG CAPSULE PO PRN ×2 (13:04→15:10)
[2020-06-28] MEDS ORDERED: MAG HYDROX/AL HYDROX/SIMETH 30 ML UNIT-DOSE CUP PO PRN (13:04)
[2020-06-28] MEDS ORDERED: guaiFENesin 200 MG/10 ML 10 ML UNIT-DOSE CUPS PO PRN ×2 (13:04→15:10)
[2020-06-28] MEDS ORDERED: IBUPROFEN 400 MG TABLET (FP) PO PRN ×2 (13:04→15:10)
[2020-06-28] MEDS ORDERED: MAGNESIUM CITRATE 300 ML BOTTLE PO PRN ×2 (13:04→15:10)
[2020-06-28] MEDS ORDERED: P-EPHED 60MG/TRIPROLIDI 2.5MG TABLET PO PRN ×2 (13:04→15:10)
[2020-06-28] MEDS ORDERED: MENTHOL/PHENOL 1 EACH UD MM PRN ×2 (13:04→15:10)
[2020-06-28] MEDS ORDERED: MAGNESIUM HYDROX 2400MG/30ML ORAL SUSPENSION 30 ML CUP PO PRN ×2 (13:04→15:10)
[2020-06-28] MEDS ORDERED: NICOTINE POLACRILEX 2 MG GUM BUC PRN (13:04)
[2020-06-28] MEDS ORDERED: hydrOXYzine PAMOATE 25 MG CAPSULE (FP) PO PRN (13:04)
[2020-06-28] MEDS ORDERED: ACETAMINOPHEN 325 MG TABLET (FP) PO PRN (15:10)
[2020-06-28] MEDS ORDERED: PT OWN MED DRAWER 7, Y5N ONE ×3 (17:06→23:28)
[2020-06-28] MEDS: hydrOXYzine PAMOATE 25 MG CAPSULE (FP) PO SCH ×2 (17:23→21:46)
[2020-06-28] MEDS: FERROUS SO4 325 MG TABLET (FP) PO SCH (17:23)
[2020-06-28] MEDS: SUCRALFATE 1 GM TABLET (FP) PO SCH ×2 (17:24→21:43)
[2020-06-28] MEDS: MAG HYDROX/AL HYDROX/SIMETH 30 ML UNIT-DOSE CUP PO PRN (20:21)
[2020-06-28] MEDS: DIVALPROEX SODIUM 500 MG TABLET E.C. PO SCH (21:43)
[2020-06-28] MEDS: MELATONIN 5 MG TABLETS PO SCH (21:43)
[2020-06-28] MEDS: QUEtiapine FUMARATE 100 MG TABLET (FP) PO SCH (21:43)
[2020-06-28] MEDS: THIAMINE HCL 100 MG TABLET (FP) PO SCH (21:43)
[2020-06-28] MEDS: levETIRAcetam 500 MG TABLET (FP) PO SCH (21:44)
[2020-06-28] MEDS: PANTOPRAZOLE 20 MG TABLET PO SCH (21:44)
[2020-06-28] MEDS ORDERED: THIAMINE HCL 100 MG TABLET (FP) PO SCH (22:00)
[2020-06-28] MEDS ORDERED: MELATONIN 5 MG TABLETS PO SCH (22:00)
[2020-06-28] MEDS: ALBUTEROL SO4 HFA INHALER IH PRN (23:29)
[2020-06-29] MEDS ORDERED: METHADONE HCL 10 MG TABLET PO SCH (06:00)
[2020-06-29] MEDS ORDERED: METHADONE HCL 40 MG DISPERSABLE TABLET ONE (06:07)
[2020-06-29] MEDS ORDERED: METHADONE HCL 5 MG TABLET ONE (06:07)
[2020-06-29] MEDS ORDERED: METHADONE HCL 10 MG TABLET ONE (06:07)
[2020-06-29] MEDS: hydrOXYzine PAMOATE 25 MG CAPSULE (FP) PO SCH ×5 (06:08→21:22)
[2020-06-29] MEDS: SUCRALFATE 1 GM TABLET (FP) PO SCH ×4 (06:08→22:04)
[2020-06-29] MEDS: METHADONE 80 MG, METHADONE 30 MG, METHADONE 5 MG PO SCH (06:08)
[2020-06-29] MEDS: MAG HYDROX/AL HYDROX/SIMETH 30 ML UNIT-DOSE CUP PO PRN ×2 (06:08→20:58)
[2020-06-29] MEDS: FERROUS SO4 325 MG TABLET (FP) PO SCH ×2 (07:12→17:45)
[2020-06-29] MEDS: levETIRAcetam 500 MG TABLET (FP) PO SCH ×2 (09:45→21:22)
[2020-06-29] MEDS: PRENATAL VITAMINS W/ FOLIC ACID TABLET (FP) PO SCH (09:45)
[2020-06-29] MEDS: PANTOPRAZOLE 20 MG TABLET PO SCH ×2 (09:46→21:23)
[2020-06-29] MEDS: ESCITALOPRAM OXALATE 20 MG TABLET PO SCH (09:46)
[2020-06-29] MEDS: DIVALPROEX SODIUM 500 MG TABLET E.C. PO SCH ×2 (09:46→21:22)
[2020-06-29] MEDS: NICOTINE 21 MG/24 HOURS TOPICAL PATCH TD SCH (09:46)
[2020-06-29] MEDS: NICOTINE POLACRILEX 2 MG GUM BUC PRN (09:49)
[2020-06-29] MEDS ORDERED: PRENATAL VITAMINS W/ FOLIC ACID TABLET (FP) PO SCH (10:00)
[2020-06-29] MEDS ORDERED: NICOTINE 7 MG/24 HOURS TOPICAL PATCH TD SCH (10:00)
[2020-06-29] MEDS: ALBUTEROL SO4 HFA INHALER IH PRN (12:44)
[2020-06-29] MEDS: THIAMINE HCL 100 MG TABLET (FP) PO SCH (21:22)
[2020-06-29] MEDS: MELATONIN 5 MG TABLETS PO SCH (21:23)
[2020-06-29] MEDS: QUEtiapine FUMARATE 100 MG TABLET (FP) PO SCH (21:23)
[2020-06-30] MEDS ORDERED: METHADONE HCL 5 MG TABLET ONE (03:30)
[2020-06-30] MEDS ORDERED: METHADONE HCL 40 MG DISPERSABLE TABLET ONE (03:31)
[2020-06-30] MEDS ORDERED: METHADONE HCL 10 MG TABLET ONE (03:31)
[2020-06-30] MEDS: METHADONE 80 MG, METHADONE 30 MG, METHADONE 5 MG PO SCH (05:59)
[2020-06-30] MEDS: hydrOXYzine PAMOATE 25 MG CAPSULE (FP) PO SCH ×5 (05:59→21:18)
[2020-06-30] MEDS: SUCRALFATE 1 GM TABLET (FP) PO SCH ×4 (05:59→21:19)
[2020-06-30] MEDS: FERROUS SO4 325 MG TABLET (FP) PO SCH ×2 (07:00→17:14)
[2020-06-30] MEDS: ALBUTEROL SO4 HFA INHALER IH PRN ×3 (09:56→19:08)
[2020-06-30] MEDS: levETIRAcetam 500 MG TABLET (FP) PO SCH ×2 (09:56→21:18)
[2020-06-30] MEDS: DIVALPROEX SODIUM 500 MG TABLET E.C. PO SCH ×2 (09:56→21:18)
[2020-06-30] MEDS: NICOTINE 21 MG/24 HOURS TOPICAL PATCH TD SCH (09:57)
[2020-06-30] MEDS: ESCITALOPRAM OXALATE 20 MG TABLET PO SCH (09:57)
[2020-06-30] MEDS: PANTOPRAZOLE 20 MG TABLET PO SCH ×2 (09:57→21:18)
[2020-06-30] MEDS: PRENATAL VITAMINS W/ FOLIC ACID TABLET (FP) PO SCH (09:57)
[2020-06-30] MEDS: NICOTINE POLACRILEX 2 MG GUM BUC PRN (09:58)
[2020-06-30] MEDS: MAG HYDROX/AL HYDROX/SIMETH 30 ML UNIT-DOSE CUP PO PRN (12:54)
[2020-06-30] MEDS ORDERED: PT OWN MED DRAWER 7, Y5N ONE (19:19)
[2020-06-30] MEDS: THIAMINE HCL 100 MG TABLET (FP) PO SCH (21:18)
[2020-06-30] MEDS: QUEtiapine FUMARATE 100 MG TABLET (FP) PO SCH (21:18)
[2020-06-30] MEDS: MELATONIN 5 MG TABLETS PO SCH (21:18)
[2020-07-01] MEDS: MAG HYDROX/AL HYDROX/SIMETH 30 ML UNIT-DOSE CUP PO PRN ×2 (00:43→12:09)
[2020-07-01] MEDS ORDERED: METHADONE HCL 40 MG DISPERSABLE TABLET ONE (03:28)
[2020-07-01] MEDS ORDERED: METHADONE HCL 10 MG TABLET ONE (03:28)
[2020-07-01] MEDS ORDERED: METHADONE HCL 5 MG TABLET ONE (03:28)
[2020-07-01] MEDS: METHADONE 80 MG, METHADONE 30 MG, METHADONE 5 MG PO SCH (05:59)
[2020-07-01] MEDS: hydrOXYzine PAMOATE 25 MG CAPSULE (FP) PO SCH ×5 (06:00→21:45)
[2020-07-01] MEDS: METHOCARBAMOL 500 MG TABLET PO PRN ×2 (06:00→21:46)
[2020-07-01] MEDS: SUCRALFATE 1 GM TABLET (FP) PO SCH ×4 (06:00→21:45)
[2020-07-01] MEDS ORDERED: MASKS NR ONE (06:01)
[2020-07-01] MEDS: FERROUS SO4 325 MG TABLET (FP) PO SCH ×2 (07:00→17:21)
[2020-07-01] MEDS: PRENATAL VITAMINS W/ FOLIC ACID TABLET (FP) PO SCH (09:47)
[2020-07-01] MEDS: levETIRAcetam 500 MG TABLET (FP) PO SCH ×2 (09:48→21:44)
[2020-07-01] MEDS: PANTOPRAZOLE 20 MG TABLET PO SCH ×2 (09:48→21:45)
[2020-07-01] MEDS: DIVALPROEX SODIUM 500 MG TABLET E.C. PO SCH ×2 (09:48→21:44)
[2020-07-01] MEDS: ESCITALOPRAM OXALATE 20 MG TABLET PO SCH (09:48)
[2020-07-01] MEDS: NICOTINE 21 MG/24 HOURS TOPICAL PATCH TD SCH (09:48)
[2020-07-01] MEDS ORDERED: PT OWN MED DRAWER 7, Y5N ONE ×3 (11:02→20:11)
[2020-07-01] MEDS: ALBUTEROL SO4 HFA INHALER IH PRN (17:21)
[2020-07-01] MEDS: QUEtiapine FUMARATE 100 MG TABLET (FP) PO SCH (21:44)
[2020-07-01] MEDS: THIAMINE HCL 100 MG TABLET (FP) PO SCH (21:45)
[2020-07-01] MEDS: MELATONIN 5 MG TABLETS PO SCH (21:45)
[2020-07-02] MEDS ORDERED: METHADONE HCL 5 MG TABLET ONE (03:51)
[2020-07-02] MEDS ORDERED: METHADONE HCL 40 MG DISPERSABLE TABLET ONE (03:52)
[2020-07-02] MEDS ORDERED: METHADONE HCL 10 MG TABLET ONE (03:52)
[2020-07-02] MEDS: METHOCARBAMOL 500 MG TABLET PO PRN ×2 (06:29→21:18)
[2020-07-02] MEDS: hydrOXYzine PAMOATE 25 MG CAPSULE (FP) PO SCH ×5 (06:29→21:17)
[2020-07-02] MEDS: METHADONE 80 MG, METHADONE 30 MG, METHADONE 5 MG PO SCH (06:29)
[2020-07-02] MEDS: SUCRALFATE 1 GM TABLET (FP) PO SCH ×4 (06:30→22:55)
[2020-07-02] MEDS: FERROUS SO4 325 MG TABLET (FP) PO SCH ×2 (07:09→17:47)
[2020-07-02] MEDS: NICOTINE 21 MG/24 HOURS TOPICAL PATCH TD SCH (09:11)
[2020-07-02] MEDS: PRENATAL VITAMINS W/ FOLIC ACID TABLET (FP) PO SCH (09:11)
[2020-07-02] MEDS: ESCITALOPRAM OXALATE 20 MG TABLET PO SCH (09:11)
[2020-07-02] MEDS: DIVALPROEX SODIUM 500 MG TABLET E.C. PO SCH ×2 (09:11→21:17)
[2020-07-02] MEDS: PANTOPRAZOLE 20 MG TABLET PO SCH ×2 (09:11→21:18)
[2020-07-02] MEDS: levETIRAcetam 500 MG TABLET (FP) PO SCH ×2 (09:11→21:17)
[2020-07-02] MEDS: ALBUTEROL SO4 HFA INHALER IH PRN ×2 (09:12→14:31)
[2020-07-02 14:09] LABS: SARS-CoV-2 NAA Not Detected (Not Detected)
[2020-07-02] MEDS: MAG HYDROX/AL HYDROX/SIMETH 30 ML UNIT-DOSE CUP PO PRN (14:30)
[2020-07-02] MEDS ORDERED: PT OWN MED DRAWER 7, Y5N ONE (16:47)
[2020-07-02] MEDS: THIAMINE HCL 100 MG TABLET (FP) PO SCH (21:17)
[2020-07-02] MEDS: QUEtiapine FUMARATE 100 MG TABLET (FP) PO SCH (21:17)
[2020-07-02] MEDS: MELATONIN 5 MG TABLETS PO SCH (21:18)
[2020-07-02] MEDS: ACETAMINOPHEN 325 MG TABLET (FP) PO PRN (21:18)
[2020-07-03] MEDS: ALBUTEROL SO4 HFA INHALER IH PRN ×3 (01:34→14:40)
[2020-07-03] MEDS ORDERED: METHADONE HCL 40 MG DISPERSABLE TABLET ONE (03:05)
[2020-07-03] MEDS ORDERED: METHADONE HCL 5 MG TABLET ONE (03:05)
[2020-07-03] MEDS ORDERED: METHADONE HCL 10 MG TABLET ONE (03:05)
[2020-07-03] MEDS: METHADONE 80 MG, METHADONE 30 MG, METHADONE 5 MG PO SCH (06:12)
[2020-07-03] MEDS: METHOCARBAMOL 500 MG TABLET PO PRN ×2 (06:13→21:40)
[2020-07-03] MEDS: SUCRALFATE 1 GM TABLET (FP) PO SCH ×4 (06:13→21:41)
[2020-07-03] MEDS: hydrOXYzine PAMOATE 25 MG CAPSULE (FP) PO SCH ×5 (06:13→21:40)
[2020-07-03] MEDS: FERROUS SO4 325 MG TABLET (FP) PO SCH ×2 (07:46→17:03)
[2020-07-03] MEDS: PRENATAL VITAMINS W/ FOLIC ACID TABLET (FP) PO SCH (10:07)
[2020-07-03] MEDS: levETIRAcetam 500 MG TABLET (FP) PO SCH ×2 (10:07→21:40)
[2020-07-03] MEDS: DIVALPROEX SODIUM 500 MG TABLET E.C. PO SCH ×2 (10:07→21:41)
[2020-07-03] MEDS: ESCITALOPRAM OXALATE 20 MG TABLET PO SCH (10:07)
[2020-07-03] MEDS: NICOTINE 21 MG/24 HOURS TOPICAL PATCH TD SCH (10:08)
[2020-07-03] MEDS: PANTOPRAZOLE 20 MG TABLET PO SCH ×2 (10:08→21:40)
[2020-07-03] MEDS: NICOTINE POLACRILEX 2 MG GUM BUC PRN (10:09)
[2020-07-03] MEDS: MAG HYDROX/AL HYDROX/SIMETH 30 ML UNIT-DOSE CUP PO PRN (15:23)
[2020-07-03] MEDS ORDERED: PT OWN MED DRAWER 7, Y5N ONE (16:55)
[2020-07-03] MEDS: QUEtiapine FUMARATE 100 MG TABLET (FP) PO SCH (21:40)
[2020-07-03] MEDS: MELATONIN 5 MG TABLETS PO SCH (21:40)
[2020-07-03] MEDS: THIAMINE HCL 100 MG TABLET (FP) PO SCH (21:40)
[2020-07-04] MEDS: MAG HYDROX/AL HYDROX/SIMETH 30 ML UNIT-DOSE CUP PO PRN ×3 (01:17→14:13)
[2020-07-04] MEDS ORDERED: METHADONE HCL 10 MG TABLET ONE (03:27)
[2020-07-04] MEDS ORDERED: METHADONE HCL 5 MG TABLET ONE (03:27)
[2020-07-04] MEDS ORDERED: METHADONE HCL 40 MG DISPERSABLE TABLET ONE (03:28)
[2020-07-04] MEDS: hydrOXYzine PAMOATE 25 MG CAPSULE (FP) PO SCH ×5 (05:48→21:21)
[2020-07-04] MEDS: METHOCARBAMOL 500 MG TABLET PO PRN ×3 (05:48→21:21)
[2020-07-04] MEDS: METHADONE 80 MG, METHADONE 30 MG, METHADONE 5 MG PO SCH (05:50)
[2020-07-04] MEDS: FERROUS SO4 325 MG TABLET (FP) PO SCH ×2 (07:17→16:57)
[2020-07-04] MEDS: SUCRALFATE 1 GM TABLET (FP) PO SCH ×4 (07:17→21:20)
[2020-07-04] MEDS: PRENATAL VITAMINS W/ FOLIC ACID TABLET (FP) PO SCH (09:45)
[2020-07-04] MEDS: ESCITALOPRAM OXALATE 20 MG TABLET PO SCH (09:46)
[2020-07-04] MEDS: NICOTINE 21 MG/24 HOURS TOPICAL PATCH TD SCH (09:46)
[2020-07-04] MEDS: levETIRAcetam 500 MG TABLET (FP) PO SCH ×2 (09:46→21:21)
[2020-07-04] MEDS: DIVALPROEX SODIUM 500 MG TABLET E.C. PO SCH ×2 (09:46→21:21)
[2020-07-04] MEDS: PANTOPRAZOLE 20 MG TABLET PO SCH ×2 (09:46→21:21)
[2020-07-04] MEDS: ALBUTEROL SO4 HFA INHALER IH PRN ×2 (12:42→16:58)
[2020-07-04] MEDS: QUEtiapine FUMARATE 100 MG TABLET (FP) PO SCH (21:21)
[2020-07-04] MEDS: MELATONIN 5 MG TABLETS PO SCH (21:21)
[2020-07-04] MEDS: THIAMINE HCL 100 MG TABLET (FP) PO SCH (21:21)
[2020-07-05] MEDS ORDERED: METHADONE HCL 40 MG DISPERSABLE TABLET ONE (03:26)
[2020-07-05] MEDS ORDERED: METHADONE HCL 10 MG TABLET ONE (03:26)
[2020-07-05] MEDS ORDERED: METHADONE HCL 5 MG TABLET ONE (03:26)
[2020-07-05] MEDS: METHADONE 80 MG, METHADONE 30 MG, METHADONE 5 MG PO SCH (06:11)
[2020-07-05] MEDS: METHOCARBAMOL 500 MG TABLET PO PRN ×2 (06:12→13:44)
[2020-07-05] MEDS: hydrOXYzine PAMOATE 25 MG CAPSULE (FP) PO SCH ×5 (06:12→21:51)
[2020-07-05] MEDS: SUCRALFATE 1 GM TABLET (FP) PO SCH ×4 (06:15→21:52)
[2020-07-05] MEDS: FERROUS SO4 325 MG TABLET (FP) PO SCH ×2 (07:13→17:04)
[2020-07-05] MEDS: MAG HYDROX/AL HYDROX/SIMETH 30 ML UNIT-DOSE CUP PO PRN ×2 (08:34→13:44)
[2020-07-05] MEDS: levETIRAcetam 500 MG TABLET (FP) PO SCH ×2 (09:52→21:51)
[2020-07-05] MEDS: DIVALPROEX SODIUM 500 MG TABLET E.C. PO SCH ×2 (09:53→21:51)
[2020-07-05] MEDS: PRENATAL VITAMINS W/ FOLIC ACID TABLET (FP) PO SCH (09:53)
[2020-07-05] MEDS: ESCITALOPRAM OXALATE 20 MG TABLET PO SCH (09:53)
[2020-07-05] MEDS: NICOTINE 21 MG/24 HOURS TOPICAL PATCH TD SCH (09:53)
[2020-07-05] MEDS: PANTOPRAZOLE 20 MG TABLET PO SCH ×2 (09:53→21:51)
[2020-07-05] MEDS: ACETAMINOPHEN 325 MG TABLET (FP) PO PRN (09:54)
[2020-07-05] MEDS: ALBUTEROL SO4 HFA INHALER IH PRN (12:37)
[2020-07-05] MEDS: QUEtiapine FUMARATE 100 MG TABLET (FP) PO SCH (21:51)
[2020-07-05] MEDS: THIAMINE HCL 100 MG TABLET (FP) PO SCH (21:51)
[2020-07-05] MEDS: MELATONIN 5 MG TABLETS PO SCH (21:52)
[2020-07-06] MEDS: MAG HYDROX/AL HYDROX/SIMETH 30 ML UNIT-DOSE CUP PO PRN ×3 (00:52→17:52)
[2020-07-06] MEDS: ALBUTEROL SO4 HFA INHALER IH PRN ×3 (00:52→17:51)
[2020-07-06] MEDS: hydrOXYzine PAMOATE 25 MG CAPSULE (FP) PO SCH ×5 (06:10→21:05)
[2020-07-06] MEDS: METHOCARBAMOL 500 MG TABLET PO PRN (06:10)
[2020-07-06] MEDS: SUCRALFATE 1 GM TABLET (FP) PO SCH ×4 (06:10→21:06)
[2020-07-06] MEDS ORDERED: METHADONE HCL 10 MG TABLET ONE (06:11)
[2020-07-06] MEDS ORDERED: METHADONE HCL 5 MG TABLET ONE (06:11)
[2020-07-06] MEDS ORDERED: METHADONE HCL 40 MG DISPERSABLE TABLET ONE (06:11)
[2020-07-06] MEDS: METHADONE 80 MG, METHADONE 30 MG, METHADONE 5 MG PO SCH (06:12)
[2020-07-06] MEDS: FERROUS SO4 325 MG TABLET (FP) PO SCH ×2 (07:15→17:25)
[2020-07-06] MEDS ORDERED: COVID-19 VAC,AD26(JANSSEN)/PF 0.5 ML IM ONE (10:00)
[2020-07-06] MEDS: ESCITALOPRAM OXALATE 20 MG TABLET PO SCH (10:05)
[2020-07-06] MEDS: PRENATAL VITAMINS W/ FOLIC ACID TABLET (FP) PO SCH (10:05)
[2020-07-06] MEDS: PANTOPRAZOLE 20 MG TABLET PO SCH ×2 (10:06→21:06)
[2020-07-06] MEDS: levETIRAcetam 500 MG TABLET (FP) PO SCH ×2 (10:06→21:05)
[2020-07-06] MEDS: DIVALPROEX SODIUM 500 MG TABLET E.C. PO SCH ×2 (10:06→21:06)
[2020-07-06] MEDS: NICOTINE 21 MG/24 HOURS TOPICAL PATCH TD SCH (10:06)
[2020-07-06] MEDS ORDERED: PT OWN MED DRAWER 7, Y5N ONE ×2 (16:53→18:27)
[2020-07-06] MEDS: THIAMINE HCL 100 MG TABLET (FP) PO SCH (21:05)
[2020-07-06] MEDS: MELATONIN 5 MG TABLETS PO SCH (21:06)
[2020-07-06] MEDS: QUEtiapine FUMARATE 100 MG TABLET (FP) PO SCH (21:06)
[2020-07-07] MEDS ORDERED: PT OWN MED DRAWER 7, Y5N ONE ×2 (01:47→06:09)
[2020-07-07] MEDS: ALBUTEROL SO4 HFA INHALER IH PRN ×3 (01:48→16:12)
[2020-07-07] MEDS ORDERED: METHADONE HCL 5 MG TABLET ONE (04:45)
[2020-07-07] MEDS ORDERED: METHADONE HCL 10 MG TABLET ONE (04:46)
[2020-07-07] MEDS ORDERED: METHADONE HCL 40 MG DISPERSABLE TABLET ONE (04:46)
[2020-07-07] MEDS: hydrOXYzine PAMOATE 25 MG CAPSULE (FP) PO SCH ×5 (06:05→21:53)
[2020-07-07] MEDS: METHOCARBAMOL 500 MG TABLET PO PRN ×2 (06:05→21:53)
[2020-07-07] MEDS: METHADONE 80 MG, METHADONE 30 MG, METHADONE 5 MG PO SCH (06:07)
[2020-07-07] MEDS: SUCRALFATE 1 GM TABLET (FP) PO SCH ×4 (06:09→21:53)
[2020-07-07] MEDS: FERROUS SO4 325 MG TABLET (FP) PO SCH ×2 (07:47→17:23)
[2020-07-07] MEDS: PRENATAL VITAMINS W/ FOLIC ACID TABLET (FP) PO SCH (09:36)
[2020-07-07] MEDS: DIVALPROEX SODIUM 500 MG TABLET E.C. PO SCH ×2 (09:36→21:53)
[2020-07-07] MEDS: ESCITALOPRAM OXALATE 20 MG TABLET PO SCH (09:36)
[2020-07-07] MEDS: PANTOPRAZOLE 20 MG TABLET PO SCH ×2 (09:37→21:53)
[2020-07-07] MEDS: levETIRAcetam 500 MG TABLET (FP) PO SCH ×2 (09:37→21:53)
[2020-07-07] MEDS: NICOTINE 21 MG/24 HOURS TOPICAL PATCH TD SCH (09:37)
[2020-07-07] MEDS: MAG HYDROX/AL HYDROX/SIMETH 30 ML UNIT-DOSE CUP PO PRN (10:56)
[2020-07-07] MEDS: MELATONIN 5 MG TABLETS PO SCH (21:53)
[2020-07-07] MEDS: THIAMINE HCL 100 MG TABLET (FP) PO SCH (21:53)
[2020-07-07] MEDS: QUEtiapine FUMARATE 100 MG TABLET (FP) PO SCH (21:53)
[2020-07-07] MEDS: NICOTINE POLACRILEX 2 MG GUM BUC PRN (21:55)
[2020-07-07] MEDS: ACETAMINOPHEN 325 MG TABLET (FP) PO PRN (23:48)
[2020-07-08] MEDS: ALBUTEROL SO4 HFA INHALER IH PRN ×2 (03:03→08:57)
[2020-07-08] MEDS ORDERED: METHADONE HCL 5 MG TABLET ONE (03:42)
[2020-07-08] MEDS ORDERED: METHADONE HCL 40 MG DISPERSABLE TABLET ONE (03:43)
[2020-07-08] MEDS ORDERED: METHADONE HCL 10 MG TABLET ONE (03:43)
[2020-07-08] MEDS: METHADONE 80 MG, METHADONE 30 MG, METHADONE 5 MG PO SCH (06:11)
[2020-07-08] MEDS: SUCRALFATE 1 GM TABLET (FP) PO SCH ×4 (06:11→21:20)
[2020-07-08] MEDS: hydrOXYzine PAMOATE 25 MG CAPSULE (FP) PO SCH ×5 (06:11→21:19)
[2020-07-08] MEDS: METHOCARBAMOL 500 MG TABLET PO PRN ×2 (06:11→21:19)
[2020-07-08] MEDS: FERROUS SO4 325 MG TABLET (FP) PO SCH ×2 (07:24→17:39)
[2020-07-08] MEDS: ESCITALOPRAM OXALATE 20 MG TABLET PO SCH (09:55)
[2020-07-08] MEDS: DIVALPROEX SODIUM 500 MG TABLET E.C. PO SCH ×2 (09:55→21:19)
[2020-07-08] MEDS: PRENATAL VITAMINS W/ FOLIC ACID TABLET (FP) PO SCH (09:55)
[2020-07-08] MEDS: levETIRAcetam 500 MG TABLET (FP) PO SCH ×2 (09:55→21:19)
[2020-07-08] MEDS: PANTOPRAZOLE 20 MG TABLET PO SCH ×2 (09:55→21:19)
[2020-07-08] MEDS: NICOTINE 21 MG/24 HOURS TOPICAL PATCH TD SCH (09:56)
[2020-07-08] MEDS: MELATONIN 5 MG TABLETS PO SCH (21:19)
[2020-07-08] MEDS: THIAMINE HCL 100 MG TABLET (FP) PO SCH (21:19)
[2020-07-08] MEDS: QUEtiapine FUMARATE 100 MG TABLET (FP) PO SCH (21:19)
[2020-07-08] MEDS ORDERED: PT OWN MED DRAWER 7, Y5N ONE (21:20)
[2020-07-08] MEDS: NICOTINE POLACRILEX 2 MG GUM BUC PRN (21:21)
[2020-07-09] MEDS ORDERED: METHADONE HCL 5 MG TABLET ONE (03:36)
[2020-07-09] MEDS ORDERED: METHADONE HCL 10 MG TABLET ONE (03:36)
[2020-07-09] MEDS ORDERED: METHADONE HCL 40 MG DISPERSABLE TABLET ONE (03:36)
[2020-07-09] MEDS: hydrOXYzine PAMOATE 25 MG CAPSULE (FP) PO SCH ×5 (06:05→21:44)
[2020-07-09] MEDS: METHOCARBAMOL 500 MG TABLET PO PRN ×2 (06:05→19:43)
[2020-07-09] MEDS: METHADONE 80 MG, METHADONE 30 MG, METHADONE 5 MG PO SCH (06:33)
[2020-07-09] MEDS: SUCRALFATE 1 GM TABLET (FP) PO SCH ×4 (06:34→21:44)
[2020-07-09] MEDS: FERROUS SO4 325 MG TABLET (FP) PO SCH ×2 (07:09→17:03)
[2020-07-09] MEDS: PANTOPRAZOLE 20 MG TABLET PO SCH ×2 (09:43→21:44)
[2020-07-09] MEDS: NICOTINE 21 MG/24 HOURS TOPICAL PATCH TD SCH (09:43)
[2020-07-09] MEDS: DIVALPROEX SODIUM 500 MG TABLET E.C. PO SCH ×2 (09:43→21:44)
[2020-07-09] MEDS: levETIRAcetam 500 MG TABLET (FP) PO SCH ×2 (09:43→21:44)
[2020-07-09] MEDS: ESCITALOPRAM OXALATE 20 MG TABLET PO SCH (09:43)
[2020-07-09] MEDS: PRENATAL VITAMINS W/ FOLIC ACID TABLET (FP) PO SCH (09:44)
[2020-07-09] MEDS ORDERED: PT OWN MED DRAWER 7, Y5N ONE ×2 (17:02→19:12)
[2020-07-09] MEDS: MELATONIN 5 MG TABLETS PO SCH (21:44)
[2020-07-09] MEDS: THIAMINE HCL 100 MG TABLET (FP) PO SCH (21:44)
[2020-07-09] MEDS: QUEtiapine FUMARATE 100 MG TABLET (FP) PO SCH (21:44)
[2020-07-10] MEDS: MAG HYDROX/AL HYDROX/SIMETH 30 ML UNIT-DOSE CUP PO PRN ×2 (00:17→08:48)
[2020-07-10] MEDS ORDERED: METHADONE HCL 10 MG TABLET ONE (03:25)
[2020-07-10] MEDS ORDERED: METHADONE HCL 40 MG DISPERSABLE TABLET ONE (03:25)
[2020-07-10] MEDS ORDERED: METHADONE HCL 5 MG TABLET ONE (03:25)
[2020-07-10] MEDS: SUCRALFATE 1 GM TABLET (FP) PO SCH ×4 (06:06→21:22)
[2020-07-10] MEDS: METHOCARBAMOL 500 MG TABLET PO PRN ×2 (06:06→21:24)
[2020-07-10] MEDS: METHADONE 80 MG, METHADONE 30 MG, METHADONE 5 MG PO SCH (06:06)
[2020-07-10] MEDS: hydrOXYzine PAMOATE 25 MG CAPSULE (FP) PO SCH ×5 (06:06→21:21)
[2020-07-10] MEDS: FERROUS SO4 325 MG TABLET (FP) PO SCH ×2 (07:08→17:25)
[2020-07-10] MEDS: levETIRAcetam 500 MG TABLET (FP) PO SCH ×2 (09:47→21:22)
[2020-07-10] MEDS: PANTOPRAZOLE 20 MG TABLET PO SCH ×2 (09:47→21:21)
[2020-07-10] MEDS: ESCITALOPRAM OXALATE 20 MG TABLET PO SCH (09:47)
[2020-07-10] MEDS: PRENATAL VITAMINS W/ FOLIC ACID TABLET (FP) PO SCH (09:47)
[2020-07-10] MEDS: DIVALPROEX SODIUM 500 MG TABLET E.C. PO SCH ×2 (09:47→21:21)
[2020-07-10] MEDS: NICOTINE POLACRILEX 2 MG GUM BUC PRN (09:49)
[2020-07-10] MEDS: NICOTINE 21 MG/24 HOURS TOPICAL PATCH TD SCH (09:49)
[2020-07-10] MEDS ORDERED: PT OWN MED DRAWER 7, Y5N ONE ×2 (16:26→20:28)
[2020-07-10] MEDS: ALBUTEROL SO4 HFA INHALER IH PRN (16:39)
[2020-07-10] MEDS: THIAMINE HCL 100 MG TABLET (FP) PO SCH (21:21)
[2020-07-10] MEDS: QUEtiapine FUMARATE 100 MG TABLET (FP) PO SCH (21:21)
[2020-07-10] MEDS: MELATONIN 5 MG TABLETS PO SCH (21:22)
[2020-07-11] MEDS ORDERED: METHADONE HCL 5 MG TABLET ONE (03:03)
[2020-07-11] MEDS ORDERED: METHADONE HCL 10 MG TABLET ONE (03:03)
[2020-07-11] MEDS ORDERED: METHADONE HCL 40 MG DISPERSABLE TABLET ONE (03:04)
[2020-07-11] MEDS ORDERED: PT OWN MED DRAWER 7, Y5N ONE (03:05)
[2020-07-11] MEDS: hydrOXYzine PAMOATE 25 MG CAPSULE (FP) PO SCH ×5 (06:12→21:40)
[2020-07-11] MEDS: METHOCARBAMOL 500 MG TABLET PO PRN ×2 (06:12→21:39)
[2020-07-11] MEDS: METHADONE 80 MG, METHADONE 30 MG, METHADONE 5 MG PO SCH (06:13)
[2020-07-11] MEDS: SUCRALFATE 1 GM TABLET (FP) PO SCH ×4 (06:58→21:39)
[2020-07-11] MEDS: FERROUS SO4 325 MG TABLET (FP) PO SCH ×2 (06:59→16:50)
[2020-07-11] MEDS: PRENATAL VITAMINS W/ FOLIC ACID TABLET (FP) PO SCH (09:49)
[2020-07-11] MEDS: levETIRAcetam 500 MG TABLET (FP) PO SCH ×2 (09:50→21:39)
[2020-07-11] MEDS: PANTOPRAZOLE 20 MG TABLET PO SCH ×2 (09:50→21:40)
[2020-07-11] MEDS: ESCITALOPRAM OXALATE 20 MG TABLET PO SCH (09:50)
[2020-07-11] MEDS: DIVALPROEX SODIUM 500 MG TABLET E.C. PO SCH ×2 (09:50→21:39)
[2020-07-11] MEDS: NICOTINE 21 MG/24 HOURS TOPICAL PATCH TD SCH (10:17)
[2020-07-11] MEDS: MAG HYDROX/AL HYDROX/SIMETH 30 ML UNIT-DOSE CUP PO PRN (12:43)
[2020-07-11] MEDS: THIAMINE HCL 100 MG TABLET (FP) PO SCH (21:39)
[2020-07-11] MEDS: QUEtiapine FUMARATE 100 MG TABLET (FP) PO SCH (21:39)
[2020-07-11] MEDS: MELATONIN 5 MG TABLETS PO SCH (21:40)
[2020-07-11] MEDS: ACETAMINOPHEN 325 MG TABLET (FP) PO PRN (21:40)
[2020-07-12] MEDS ORDERED: METHADONE HCL 5 MG TABLET ONE (03:49)
[2020-07-12] MEDS ORDERED: METHADONE HCL 10 MG TABLET ONE (03:50)
[2020-07-12] MEDS ORDERED: METHADONE HCL 40 MG DISPERSABLE TABLET ONE (03:50)
[2020-07-12] MEDS: METHOCARBAMOL 500 MG TABLET PO PRN ×2 (06:02→21:24)
[2020-07-12] MEDS: METHADONE 80 MG, METHADONE 30 MG, METHADONE 5 MG PO SCH (06:02)
[2020-07-12] MEDS: hydrOXYzine PAMOATE 25 MG CAPSULE (FP) PO SCH ×5 (06:02→21:24)
[2020-07-12] MEDS: SUCRALFATE 1 GM TABLET (FP) PO SCH ×4 (06:04→21:26)
[2020-07-12] MEDS: FERROUS SO4 325 MG TABLET (FP) PO SCH ×2 (07:05→17:16)
[2020-07-12] MEDS: ESCITALOPRAM OXALATE 20 MG TABLET PO SCH (09:47)
[2020-07-12] MEDS: PANTOPRAZOLE 20 MG TABLET PO SCH ×2 (09:47→21:24)
[2020-07-12] MEDS: PRENATAL VITAMINS W/ FOLIC ACID TABLET (FP) PO SCH (09:47)
[2020-07-12] MEDS: levETIRAcetam 500 MG TABLET (FP) PO SCH ×2 (09:47→21:24)
[2020-07-12] MEDS: DIVALPROEX SODIUM 500 MG TABLET E.C. PO SCH ×2 (09:47→21:24)
[2020-07-12] MEDS: NICOTINE 21 MG/24 HOURS TOPICAL PATCH TD SCH (09:48)
[2020-07-12] MEDS: MAG HYDROX/AL HYDROX/SIMETH 30 ML UNIT-DOSE CUP PO PRN (09:50)
[2020-07-12] MEDS ORDERED: PT OWN MED DRAWER 7, Y5N ONE (17:16)
[2020-07-12] MEDS: QUEtiapine FUMARATE 100 MG TABLET (FP) PO SCH (21:24)
[2020-07-12] MEDS: THIAMINE HCL 100 MG TABLET (FP) PO SCH (21:25)
[2020-07-12] MEDS: MELATONIN 5 MG TABLETS PO SCH (21:25)
[2020-07-13] MEDS ORDERED: METHADONE HCL 5 MG TABLET ONE (06:05)
[2020-07-13] MEDS ORDERED: METHADONE HCL 40 MG DISPERSABLE TABLET ONE (06:06)
[2020-07-13] MEDS ORDERED: METHADONE HCL 10 MG TABLET ONE (06:06)
[2020-07-13] MEDS: METHADONE 80 MG, METHADONE 30 MG, METHADONE 5 MG PO SCH (06:07)
[2020-07-13] MEDS: hydrOXYzine PAMOATE 25 MG CAPSULE (FP) PO SCH ×5 (06:07→21:44)
[2020-07-13] MEDS: SUCRALFATE 1 GM TABLET (FP) PO SCH ×4 (06:08→21:44)
[2020-07-13] MEDS: METHOCARBAMOL 500 MG TABLET PO PRN ×2 (06:08→21:44)
[2020-07-13] MEDS: FERROUS SO4 325 MG TABLET (FP) PO SCH ×2 (07:02→16:59)
[2020-07-13] MEDS: levETIRAcetam 500 MG TABLET (FP) PO SCH ×2 (09:45→21:44)
[2020-07-13] MEDS: ESCITALOPRAM OXALATE 20 MG TABLET PO SCH (09:45)
[2020-07-13] MEDS: PRENATAL VITAMINS W/ FOLIC ACID TABLET (FP) PO SCH (09:45)
[2020-07-13] MEDS: PANTOPRAZOLE 20 MG TABLET PO SCH ×2 (09:45→21:44)
[2020-07-13] MEDS: DIVALPROEX SODIUM 500 MG TABLET E.C. PO SCH ×2 (09:45→21:44)
[2020-07-13] MEDS: NICOTINE 21 MG/24 HOURS TOPICAL PATCH TD SCH (09:46)
[2020-07-13] MEDS: NICOTINE POLACRILEX 2 MG GUM BUC PRN (09:48)
[2020-07-13] MEDS: COLLOIDAL OATMEAL 1 BAR EACH TP PRN (11:46)
[2020-07-13] MEDS: THIAMINE HCL 100 MG TABLET (FP) PO SCH (21:44)
[2020-07-13] MEDS: QUEtiapine FUMARATE 100 MG TABLET (FP) PO SCH (21:44)
[2020-07-13] MEDS: MELATONIN 5 MG TABLETS PO SCH (21:45)
[2020-07-14] MEDS ORDERED: METHADONE HCL 10 MG TABLET ONE (03:36)
[2020-07-14] MEDS ORDERED: METHADONE HCL 5 MG TABLET ONE (03:36)
[2020-07-14] MEDS ORDERED: METHADONE HCL 40 MG DISPERSABLE TABLET ONE (03:36)
[2020-07-14] MEDS: hydrOXYzine PAMOATE 25 MG CAPSULE (FP) PO SCH ×3 (06:02→13:50)
[2020-07-14] MEDS: METHOCARBAMOL 500 MG TABLET PO PRN ×2 (06:02→21:22)
[2020-07-14] MEDS: METHADONE 80 MG, METHADONE 30 MG, METHADONE 5 MG PO SCH (06:03)
[2020-07-14] MEDS: SUCRALFATE 1 GM TABLET (FP) PO SCH ×4 (06:05→21:22)
[2020-07-14] MEDS: FERROUS SO4 325 MG TABLET (FP) PO SCH ×2 (07:11→17:29)
[2020-07-14] MEDS: DIVALPROEX SODIUM 500 MG TABLET E.C. PO SCH ×2 (09:44→21:22)
[2020-07-14] MEDS: PRENATAL VITAMINS W/ FOLIC ACID TABLET (FP) PO SCH (09:44)
[2020-07-14] MEDS: levETIRAcetam 500 MG TABLET (FP) PO SCH ×2 (09:44→21:22)
[2020-07-14] MEDS: ESCITALOPRAM OXALATE 20 MG TABLET PO SCH (09:45)
[2020-07-14] MEDS: PANTOPRAZOLE 20 MG TABLET PO SCH ×2 (09:45→21:23)
[2020-07-14] MEDS: NICOTINE 21 MG/24 HOURS TOPICAL PATCH TD SCH (09:45)
[2020-07-14] MEDS: hydrOXYzine PAMOATE 25 MG CAPSULE (FP) PO PRN ×2 (17:29→21:22)
[2020-07-14] MEDS: THIAMINE HCL 100 MG TABLET (FP) PO SCH (21:22)
[2020-07-14] MEDS: QUEtiapine FUMARATE 100 MG TABLET (FP) PO SCH (21:22)
[2020-07-14] MEDS: MELATONIN 5 MG TABLETS PO SCH (21:22)
[2020-07-14] MEDS: MAG HYDROX/AL HYDROX/SIMETH 30 ML UNIT-DOSE CUP PO PRN (23:45)
[2020-07-15] MEDS ORDERED: METHADONE HCL 5 MG TABLET ONE (03:21)
[2020-07-15] MEDS ORDERED: METHADONE HCL 10 MG TABLET ONE (03:21)
[2020-07-15] MEDS ORDERED: METHADONE HCL 40 MG DISPERSABLE TABLET ONE (03:21)
[2020-07-15] MEDS: SUCRALFATE 1 GM TABLET (FP) PO SCH ×4 (06:03→21:15)
[2020-07-15] MEDS: METHOCARBAMOL 500 MG TABLET PO PRN ×2 (06:03→14:03)
[2020-07-15] MEDS: METHADONE 80 MG, METHADONE 30 MG, METHADONE 5 MG PO SCH (06:03)
[2020-07-15] MEDS: FERROUS SO4 325 MG TABLET (FP) PO SCH ×2 (07:20→16:52)
[2020-07-15] MEDS: levETIRAcetam 500 MG TABLET (FP) PO SCH ×2 (09:51→21:15)
[2020-07-15] MEDS: PRENATAL VITAMINS W/ FOLIC ACID TABLET (FP) PO SCH (09:51)
[2020-07-15] MEDS: PANTOPRAZOLE 20 MG TABLET PO SCH ×2 (09:51→21:15)
[2020-07-15] MEDS: DIVALPROEX SODIUM 500 MG TABLET E.C. PO SCH ×2 (09:51→21:15)
[2020-07-15] MEDS: ESCITALOPRAM OXALATE 20 MG TABLET PO SCH (09:51)
[2020-07-15] MEDS: NICOTINE 21 MG/24 HOURS TOPICAL PATCH TD SCH (09:52)
[2020-07-15] MEDS: hydrOXYzine PAMOATE 25 MG CAPSULE (FP) PO PRN ×3 (09:53→21:15)
[2020-07-15] MEDS: MAG HYDROX/AL HYDROX/SIMETH 30 ML UNIT-DOSE CUP PO PRN (10:55)
[2020-07-15] MEDS: NICOTINE POLACRILEX 2 MG GUM BUC PRN (14:04)
[2020-07-15] MEDS ORDERED: PT OWN MED DRAWER 7, Y5N ONE ×2 (16:52→20:46)
[2020-07-15] MEDS: THIAMINE HCL 100 MG TABLET (FP) PO SCH (21:15)
[2020-07-15] MEDS: MELATONIN 5 MG TABLETS PO SCH (21:15)
[2020-07-15] MEDS: QUEtiapine FUMARATE 100 MG TABLET (FP) PO SCH (21:15)
[2020-07-16] MEDS ORDERED: METHADONE HCL 5 MG TABLET ONE (05:03)
[2020-07-16] MEDS ORDERED: METHADONE HCL 10 MG TABLET ONE (05:04)
[2020-07-16] MEDS ORDERED: METHADONE HCL 40 MG DISPERSABLE TABLET ONE (05:04)
[2020-07-16] MEDS: METHADONE 80 MG, METHADONE 30 MG, METHADONE 5 MG PO SCH (06:04)
[2020-07-16] MEDS ORDERED: PT OWN MED DRAWER 7, Y5N ONE ×2 (06:06→10:00)
[2020-07-16] MEDS: SUCRALFATE 1 GM TABLET (FP) PO SCH ×4 (06:07→21:32)
[2020-07-16] MEDS: FERROUS SO4 325 MG TABLET (FP) PO SCH ×2 (07:51→17:08)
[2020-07-16] MEDS: DIVALPROEX SODIUM 500 MG TABLET E.C. PO SCH ×2 (09:59→21:32)
[2020-07-16] MEDS: ESCITALOPRAM OXALATE 20 MG TABLET PO SCH (09:59)
[2020-07-16] MEDS: PRENATAL VITAMINS W/ FOLIC ACID TABLET (FP) PO SCH (09:59)
[2020-07-16] MEDS: levETIRAcetam 500 MG TABLET (FP) PO SCH ×2 (09:59→21:32)
[2020-07-16] MEDS: PANTOPRAZOLE 20 MG TABLET PO SCH ×2 (09:59→21:32)
[2020-07-16] MEDS: ALBUTEROL SO4 HFA INHALER IH PRN (10:00)
[2020-07-16] MEDS: METHOCARBAMOL 500 MG TABLET PO PRN ×2 (10:01→21:32)
[2020-07-16] MEDS: NICOTINE 21 MG/24 HOURS TOPICAL PATCH TD SCH (10:02)
[2020-07-16] MEDS: MAG HYDROX/AL HYDROX/SIMETH 30 ML UNIT-DOSE CUP PO PRN (14:07)
[2020-07-16] MEDS: hydrOXYzine PAMOATE 25 MG CAPSULE (FP) PO PRN ×2 (17:09→21:32)
[2020-07-16] MEDS: QUEtiapine FUMARATE 100 MG TABLET (FP) PO SCH (21:32)
[2020-07-16] MEDS: THIAMINE HCL 100 MG TABLET (FP) PO SCH (21:32)
[2020-07-16] MEDS: MELATONIN 5 MG TABLETS PO SCH (21:33)
[2020-07-17] MEDS ORDERED: METHADONE HCL 5 MG TABLET ONE (03:48)
[2020-07-17] MEDS ORDERED: METHADONE HCL 10 MG TABLET ONE (03:49)
[2020-07-17] MEDS ORDERED: METHADONE HCL 40 MG DISPERSABLE TABLET ONE (03:50)
[2020-07-17] MEDS: METHADONE 80 MG, METHADONE 30 MG, METHADONE 5 MG PO SCH (05:55)
[2020-07-17] MEDS: METHOCARBAMOL 500 MG TABLET PO PRN ×2 (05:57→21:22)
[2020-07-17] MEDS: hydrOXYzine PAMOATE 25 MG CAPSULE (FP) PO PRN ×3 (05:58→21:23)
[2020-07-17] MEDS: SUCRALFATE 1 GM TABLET (FP) PO SCH ×4 (06:00→21:22)
[2020-07-17] MEDS: FERROUS SO4 325 MG TABLET (FP) PO SCH ×2 (08:17→17:07)
[2020-07-17] MEDS: PRENATAL VITAMINS W/ FOLIC ACID TABLET (FP) PO SCH (09:54)
[2020-07-17] MEDS: PANTOPRAZOLE 20 MG TABLET PO SCH ×2 (09:55→21:22)
[2020-07-17] MEDS: NICOTINE 21 MG/24 HOURS TOPICAL PATCH TD SCH (09:55)
[2020-07-17] MEDS: DIVALPROEX SODIUM 500 MG TABLET E.C. PO SCH ×2 (09:55→21:23)
[2020-07-17] MEDS: ESCITALOPRAM OXALATE 20 MG TABLET PO SCH (09:55)
[2020-07-17] MEDS: levETIRAcetam 500 MG TABLET (FP) PO SCH ×2 (09:55→21:23)
[2020-07-17] MEDS: COLLOIDAL OATMEAL 1 BAR EACH TP PRN (09:57)
[2020-07-17] MEDS: MAG HYDROX/AL HYDROX/SIMETH 30 ML UNIT-DOSE CUP PO PRN (11:52)
[2020-07-17] MEDS: THIAMINE HCL 100 MG TABLET (FP) PO SCH (21:22)
[2020-07-17] MEDS: QUEtiapine FUMARATE 100 MG TABLET (FP) PO SCH (21:23)
[2020-07-17] MEDS: MELATONIN 5 MG TABLETS PO SCH (21:23)
[2020-07-18] MEDS ORDERED: METHADONE HCL 5 MG TABLET ONE (03:18)
[2020-07-18] MEDS ORDERED: METHADONE HCL 10 MG TABLET ONE (03:18)
[2020-07-18] MEDS ORDERED: METHADONE HCL 40 MG DISPERSABLE TABLET ONE (03:19)
[2020-07-18] MEDS: METHADONE 80 MG, METHADONE 30 MG, METHADONE 5 MG PO SCH (06:09)
[2020-07-18] MEDS: SUCRALFATE 1 GM TABLET (FP) PO SCH ×4 (06:09→21:16)
[2020-07-18] MEDS: hydrOXYzine PAMOATE 25 MG CAPSULE (FP) PO PRN ×2 (06:09→21:16)
[2020-07-18] MEDS: METHOCARBAMOL 500 MG TABLET PO PRN ×2 (06:09→21:16)
[2020-07-18] MEDS: FERROUS SO4 325 MG TABLET (FP) PO SCH ×2 (07:56→16:53)
[2020-07-18] MEDS: ESCITALOPRAM OXALATE 20 MG TABLET PO SCH (09:48)
[2020-07-18] MEDS: ALBUTEROL SO4 HFA INHALER IH PRN (09:48)
[2020-07-18] MEDS: DIVALPROEX SODIUM 500 MG TABLET E.C. PO SCH ×2 (09:48→21:16)
[2020-07-18] MEDS: levETIRAcetam 500 MG TABLET (FP) PO SCH ×2 (09:48→21:16)
[2020-07-18] MEDS: PANTOPRAZOLE 20 MG TABLET PO SCH ×2 (09:48→21:34)
[2020-07-18] MEDS: PRENATAL VITAMINS W/ FOLIC ACID TABLET (FP) PO SCH (09:50)
[2020-07-18] MEDS: NICOTINE 21 MG/24 HOURS TOPICAL PATCH TD SCH (09:51)
[2020-07-18] MEDS ORDERED: PT OWN MED DRAWER 7, Y5N ONE (16:46)
[2020-07-18] MEDS: THIAMINE HCL 100 MG TABLET (FP) PO SCH (21:16)
[2020-07-18] MEDS: QUEtiapine FUMARATE 100 MG TABLET (FP) PO SCH (21:17)
[2020-07-18] MEDS: MELATONIN 5 MG TABLETS PO SCH (21:17)
[2020-07-19] MEDS ORDERED: METHADONE HCL 5 MG TABLET ONE (04:04)
[2020-07-19] MEDS ORDERED: METHADONE HCL 10 MG TABLET ONE (04:05)
[2020-07-19] MEDS ORDERED: METHADONE HCL 40 MG DISPERSABLE TABLET ONE (04:05)
[2020-07-19] MEDS ORDERED: METHADONE 80 MG, METHADONE 30 MG, METHADONE 5 MG PO SCH (06:00)
[2020-07-19] MEDS: METHOCARBAMOL 500 MG TABLET PO PRN (06:02)
[2020-07-19] MEDS: SUCRALFATE 1 GM TABLET (FP) PO SCH (06:02)
[2020-07-19] MEDS: hydrOXYzine PAMOATE 25 MG CAPSULE (FP) PO PRN (06:02)
[2020-07-19] MEDS: FERROUS SO4 325 MG TABLET (FP) PO SCH (07:11)
[2020-07-19 07:14] VITALS: BP 142/88; PULSE 71; TEMP 96.6
[2020-07-19] MEDS: PANTOPRAZOLE 20 MG TABLET PO SCH (09:06)
[2020-07-19] MEDS: levETIRAcetam 500 MG TABLET (FP) PO SCH (09:06)
[2020-07-19] MEDS: PRENATAL VITAMINS W/ FOLIC ACID TABLET (FP) PO SCH (09:06)
[2020-07-19] MEDS: ESCITALOPRAM OXALATE 20 MG TABLET PO SCH (09:06)
[2020-07-19] MEDS: DIVALPROEX SODIUM 500 MG TABLET E.C. PO SCH (09:06)
[2020-07-19] MEDS: NICOTINE 21 MG/24 HOURS TOPICAL PATCH TD SCH (09:07)
== END 2020-07-19 09:45 | disposition home or self-care (01) | DRG 772 ==
LOC: YASAS 12:27 → Y5N 12:28
PROVIDERS: ADMIT Allergy & Immunology; ATTEND Allergy & Immunology
PROC: HZ42ZZZ Group Counseling for Substance Abuse Treatment, Cognitive-Behavioral (ICD-10-PCS; principal; 2020-06-28)
DX: F10.20 Alcohol dependence, uncomplicated (principal); F11.20 Opioid dependence, uncomplicated; F14.20 Cocaine dependence, uncomplicated; F13.20 Sedative, hypnotic or anxiolytic dependence, uncomplicated; F17.210 Nicotine dependence, cigarettes, uncomplicated; F41.9 Anxiety disorder, unspecified; F32.9 Major depressive disorder, single episode, unspecified; D50.9 Iron deficiency anemia, unspecified; G40.909 Epilepsy, unspecified, not intractable, without status epilepticus; G47.00 Insomnia, unspecified; J45.909 Unspecified asthma, uncomplicated; K21.9 Gastro-esophageal reflux disease without esophagitis; E66.9 Obesity, unspecified; Z68.37 Body mass index [BMI] 37.0-37.9, adult; Z89.012 Acquired absence of left thumb; Z87.828 Personal history of other (healed) physical injury and trauma
CPT/HCPCS: 0031A; 91303; C9803; U0003; U0005

== ENCOUNTER 2021-01-19 12:02 | Inpatient (IN) | payer OTHER ==
[2021-01-19] MEDS ORDERED: MENTHOL/PHENOL 1 EACH UD MM PRN (13:19)
[2021-01-19] MEDS ORDERED: BISMUTH SUBSALICYLATE 524 MG/30 ML PO PRN (13:19)
[2021-01-19] MEDS ORDERED: MAGNESIUM CITRATE 300 ML BOTTLE PO PRN (13:19)
[2021-01-19] MEDS ORDERED: MAGNESIUM HYDROX 2400MG/30ML ORAL SUSPENSION 30 ML CUP PO PRN (13:19)
[2021-01-19] MEDS ORDERED: NICOTINE 10 MG CARTRIDGE (INHALER) IH PRN (13:19)
[2021-01-19] MEDS ORDERED: ONDANSETRON *ODT* 4 MG TABLET SL PRN (13:19)
[2021-01-19] MEDS ORDERED: ACETAMINOPHEN 325 MG TABLET (FP) PO PRN (13:19)
[2021-01-19] MEDS ORDERED: NICOTINE POLACRILEX 2 MG GUM BUC PRN (13:22)
[2021-01-19 13:45] VITALS: BMI 36.5
[2021-01-19] MEDS: DIVALPROEX SODIUM 500 MG TABLET E.C. PO SCH ×2 (14:50→22:10)
[2021-01-19] MEDS: hydrOXYzine PAMOATE 25 MG CAPSULE (FP) PO SCH ×3 (14:50→22:05)
[2021-01-19] MEDS: levETIRAcetam 500 MG TABLET (FP) PO SCH ×2 (14:50→22:05)
[2021-01-19] MEDS: ACETAMINOPHEN 325 MG TABLET (FP) PO PRN (14:52)
[2021-01-19] MEDS: IBUPROFEN 400 MG TABLET (FP) PO PRN (16:47)
[2021-01-19] MEDS: diazePAM 5 MG TABLET PO PRN (17:33)
[2021-01-19] MEDS: MAG HYDROX/AL HYDROX/SIMETH 30 ML UNIT-DOSE CUP PO PRN (19:29)
[2021-01-19] MEDS ORDERED: SUVOREXANT 10 MG TABLET PO PRN (22:00)
[2021-01-19] MEDS: MELATONIN 5 MG TABLETS PO SCH (22:06)
[2021-01-19] MEDS: PANTOPRAZOLE 20 MG TABLET PO SCH (22:06)
[2021-01-19] MEDS: THIAMINE HCL 100 MG TABLET (FP) PO SCH (22:06)
[2021-01-19] MEDS: FERROUS SO4 325 MG TABLET (FP) PO SCH (22:06)
[2021-01-19] MEDS: diazePAM 5 MG TABLET PO SCH (22:08)
[2021-01-20] MEDS: ACETAMINOPHEN 325 MG TABLET (FP) PO PRN ×2 (03:53→18:07)
[2021-01-20] MEDS: diazePAM 5 MG TABLET PO SCH ×4 (05:19→22:19)
[2021-01-20] MEDS: hydrOXYzine PAMOATE 25 MG CAPSULE (FP) PO SCH ×5 (05:20→22:19)
[2021-01-20] MEDS ORDERED: methaDONE HCL 10 MG TABLET PO SCH (08:00)
[2021-01-20] MEDS ORDERED: methaDONE HCL 40 MG DISPERSABLE TABLET ONE (08:36)
[2021-01-20] MEDS ORDERED: methaDONE HCL 10 MG TABLET ONE (08:36)
[2021-01-20] MEDS: methaDONE 80 MG, methaDONE 10 MG PO SCH (08:38)
[2021-01-20] MEDS: METHOCARBAMOL 500 MG TABLET PO PRN (08:39)
[2021-01-20] MEDS: IBUPROFEN 400 MG TABLET (FP) PO PRN (08:39)
[2021-01-20] MEDS: diazePAM 5 MG TABLET PO PRN ×2 (08:40→20:18)
[2021-01-20] MEDS: PRENATAL VITAMINS W/ FOLIC ACID TABLET (FP) PO SCH (10:29)
[2021-01-20] MEDS: ESCITALOPRAM OXALATE 20 MG TABLET PO SCH (10:29)
[2021-01-20] MEDS: PANTOPRAZOLE 20 MG TABLET PO SCH ×2 (10:29→22:19)
[2021-01-20] MEDS: levETIRAcetam 500 MG TABLET (FP) PO SCH ×2 (10:29→22:18)
[2021-01-20] MEDS: DIVALPROEX SODIUM 500 MG TABLET E.C. PO SCH ×2 (10:30→22:19)
[2021-01-20] MEDS: FERROUS SO4 325 MG TABLET (FP) PO SCH ×2 (10:30→22:19)
[2021-01-20 11:47] LABS: HEMATOCRIT 33.2 % (35.4-49); HEMOGLOBIN 10.3 GM/dL (11.7-16.9); MCH 23.4 pg (25.7-33.7); MCHC 31.1 g/dl (32.0-35.9); MEAN CELL VOLUME 75.1 fl (80-96); MEAN PLT VOLUME 10.1 fl (7.5-11.1); PLATELET COUNT 276 10^3/uL (134-434); RBC 4.42 M/mm3 (4.00-5.60); RDW 26.5 % (11.9-15.9); RETICULOCYTES 1.86 % (0.5-1.5); WHITE BLOOD COUNT 5.9 K/mm3 (4.0-10.0)
[2021-01-20 11:57] LABS: IRON SERUM 128 ug/dL (50-175)
[2021-01-20 11:58] LABS: TOTAL IRON BINDING CAPACITY 374 ug/dL (250-450)
[2021-01-20 12:00] LABS: CALCIUM 8.8 mg/dL (8.5-10.1)
[2021-01-20] MEDS: MAG HYDROX/AL HYDROX/SIMETH 30 ML UNIT-DOSE CUP PO PRN (12:00)
[2021-01-20 12:01] LABS: ALBUMIN 3.3 g/dl (3.4-5.0); BLOOD UREA NITROGEN 16.2 mg/dL (7-18)
[2021-01-20 12:04] LABS: CREATININE 0.6 mg/dL (0.55-1.3)
[2021-01-20 12:07] LABS: BILIRUBIN,TOTAL 0.3 mg/dL (0.2-1)
[2021-01-20 12:50] LABS: HIV INTERPRETATION NEGATIVE (NEGATIVE)
[2021-01-20] MEDS: THIAMINE HCL 100 MG TABLET (FP) PO SCH (22:19)
[2021-01-20] MEDS: MELATONIN 5 MG TABLETS PO SCH (22:22)
[2021-01-21] MEDS ORDERED: methaDONE HCL 10 MG TABLET ONE (04:49)
[2021-01-21] MEDS ORDERED: methaDONE HCL 40 MG DISPERSABLE TABLET ONE (04:51)
[2021-01-21] MEDS: hydrOXYzine PAMOATE 25 MG CAPSULE (FP) PO SCH ×5 (05:20→22:13)
[2021-01-21] MEDS: methaDONE 80 MG, methaDONE 10 MG PO SCH (05:20)
[2021-01-21] MEDS: diazePAM 5 MG TABLET PO SCH ×3 (05:21→22:14)
[2021-01-21] MEDS: IBUPROFEN 400 MG TABLET (FP) PO PRN ×2 (07:30→20:46)
[2021-01-21] MEDS: METHOCARBAMOL 500 MG TABLET PO PRN ×2 (07:30→16:44)
[2021-01-21] MEDS: diazePAM 5 MG TABLET PO PRN ×4 (07:31→20:45)
[2021-01-21] MEDS: levETIRAcetam 500 MG TABLET (FP) PO SCH ×2 (10:10→22:13)
[2021-01-21] MEDS: PANTOPRAZOLE 20 MG TABLET PO SCH ×2 (10:10→22:13)
[2021-01-21] MEDS: FERROUS SO4 325 MG TABLET (FP) PO SCH ×2 (10:10→22:13)
[2021-01-21] MEDS: ESCITALOPRAM OXALATE 20 MG TABLET PO SCH (10:10)
[2021-01-21] MEDS: DIVALPROEX SODIUM 500 MG TABLET E.C. PO SCH ×2 (10:10→22:13)
[2021-01-21] MEDS: PRENATAL VITAMINS W/ FOLIC ACID TABLET (FP) PO SCH (10:10)
[2021-01-21] MEDS: MAG HYDROX/AL HYDROX/SIMETH 30 ML UNIT-DOSE CUP PO PRN (12:22)
[2021-01-21] MEDS: ACETAMINOPHEN 325 MG TABLET (FP) PO PRN (18:18)
[2021-01-21] MEDS: MELATONIN 5 MG TABLETS PO SCH (22:13)
[2021-01-21] MEDS: THIAMINE HCL 100 MG TABLET (FP) PO SCH (22:51)
[2021-01-21] MEDS: ALBUTEROL SO4 HFA INHALER IH PRN (23:29)
[2021-01-22] MEDS ORDERED: methaDONE HCL 10 MG TABLET ONE (04:49)
[2021-01-22] MEDS ORDERED: methaDONE HCL 40 MG DISPERSABLE TABLET ONE (04:50)
[2021-01-22] MEDS: hydrOXYzine PAMOATE 25 MG CAPSULE (FP) PO SCH ×5 (05:23→22:08)
[2021-01-22] MEDS: diazePAM 5 MG TABLET PO SCH ×2 (05:23→17:29)
[2021-01-22] MEDS: methaDONE 80 MG, methaDONE 10 MG PO SCH (05:23)
[2021-01-22] MEDS: ACETAMINOPHEN 325 MG TABLET (FP) PO PRN (06:57)
[2021-01-22] MEDS: METHOCARBAMOL 500 MG TABLET PO PRN ×2 (06:57→22:10)
[2021-01-22] MEDS: diazePAM 5 MG TABLET PO PRN ×2 (08:58→13:01)
[2021-01-22] MEDS: levETIRAcetam 500 MG TABLET (FP) PO SCH ×2 (10:05→22:08)
[2021-01-22] MEDS: DIVALPROEX SODIUM 500 MG TABLET E.C. PO SCH ×2 (10:05→22:08)
[2021-01-22] MEDS: PANTOPRAZOLE 20 MG TABLET PO SCH ×2 (10:05→22:08)
[2021-01-22] MEDS: ESCITALOPRAM OXALATE 20 MG TABLET PO SCH (10:05)
[2021-01-22] MEDS: IBUPROFEN 400 MG TABLET (FP) PO PRN (10:07)
[2021-01-22] MEDS: ALBUTEROL SO4 HFA INHALER IH PRN (12:44)
[2021-01-22] MEDS: MAG HYDROX/AL HYDROX/SIMETH 30 ML UNIT-DOSE CUP PO PRN (12:44)
[2021-01-22] MEDS: THIAMINE HCL 100 MG TABLET (FP) PO SCH (22:08)
[2021-01-22] MEDS: MELATONIN 5 MG TABLETS PO SCH (22:09)
[2021-01-23] MEDS ORDERED: methaDONE HCL 40 MG DISPERSABLE TABLET ONE (04:32)
[2021-01-23] MEDS ORDERED: methaDONE HCL 10 MG TABLET ONE (04:32)
[2021-01-23] MEDS: methaDONE 80 MG, methaDONE 10 MG PO SCH (05:17)
[2021-01-23] MEDS: hydrOXYzine PAMOATE 25 MG CAPSULE (FP) PO SCH ×2 (05:18→10:24)
[2021-01-23] MEDS ORDERED: diazePAM 5 MG TABLET PO ONE (06:00)
[2021-01-23] MEDS: METHOCARBAMOL 500 MG TABLET PO PRN (07:02)
[2021-01-23] MEDS: IBUPROFEN 400 MG TABLET (FP) PO PRN (07:02)
[2021-01-23 09:13] VITALS: BP 146/83; PULSE 72; TEMP 97.6
[2021-01-23] MEDS: FERROUS SO4 325 MG TABLET (FP) PO SCH (10:24)
[2021-01-23] MEDS: PANTOPRAZOLE 20 MG TABLET PO SCH (10:24)
[2021-01-23] MEDS: DIVALPROEX SODIUM 500 MG TABLET E.C. PO SCH (10:24)
[2021-01-23] MEDS: ESCITALOPRAM OXALATE 20 MG TABLET PO SCH (10:24)
[2021-01-23] MEDS: PRENATAL VITAMINS W/ FOLIC ACID TABLET (FP) PO SCH (10:25)
[2021-01-23] MEDS: ACETAMINOPHEN 325 MG TABLET (FP) PO PRN (10:25)
[2021-01-23] MEDS: levETIRAcetam 500 MG TABLET (FP) PO SCH (10:25)
== END 2021-01-23 11:25 | disposition other institution (70) | DRG 773 ==
LOC: YASAS 12:02 → Y6N 14:00
PROVIDERS: ADMIT Allergy & Immunology; ATTEND Allergy & Immunology
PROC: HZ2ZZZZ Detoxification Services for Substance Abuse Treatment (ICD-10-PCS; principal; 2021-01-19)
DX: F10.230 Alcohol dependence with withdrawal, uncomplicated (principal); F11.20 Opioid dependence, uncomplicated; F14.20 Cocaine dependence, uncomplicated; F13.20 Sedative, hypnotic or anxiolytic dependence, uncomplicated; F17.213 Nicotine dependence, cigarettes, with withdrawal; F31.81 Bipolar II disorder; F19.24 Other psychoactive substance dependence with psychoactive substance-induced mood disorder; F19.282 Other psychoactive substance dependence with psychoactive substance-induced sleep disorder; J45.909 Unspecified asthma, uncomplicated; K21.9 Gastro-esophageal reflux disease without esophagitis; G40.909 Epilepsy, unspecified, not intractable, without status epilepticus; D64.9 Anemia, unspecified; Z89.012 Acquired absence of left thumb; G47.00 Insomnia, unspecified; E66.9 Obesity, unspecified; Z68.36 Body mass index [BMI] 36.0-36.9, adult; Z88.0 Allergy status to penicillin; Z91.14 Patient's other noncompliance with medication regimen; Z56.0 Unemployment, unspecified
CPT/HCPCS: 36415; 80053; 80164; 82607; 82728; 82746; 83540; 83550; 83615; 85027; 85045; 86780; 87389; C9803; Q0162; U0003; U0005

== ENCOUNTER 2021-01-23 11:01 | Inpatient (IN) | payer OTHER ==
[2021-01-23] MEDS ORDERED: PNEUMOC 13-VAL CONJ-DIP CRM/PF 0.5 ML DISP.SYRIN IM ONE (11:36)
[2021-01-23] MEDS ORDERED: PNEUMOCOCCAL 23 VACCINE 0.5 ML VIAL IM ONE (12:00)
[2021-01-23] MEDS ORDERED: FLU VACC QS2021-22(6MOS UP)/PF 60 MCG/0.5 ML SYRINGE IM ONE (12:00)
[2021-01-23] MEDS ORDERED: guaiFENesin 200 MG/10 ML 10 ML UNIT-DOSE CUPS PO PRN (13:28)
[2021-01-23] MEDS ORDERED: LOPERAMIDE HCL 2 MG CAPSULE PO PRN (13:28)
[2021-01-23] MEDS ORDERED: MAGNESIUM CITRATE 300 ML BOTTLE PO PRN (13:28)
[2021-01-23] MEDS ORDERED: MAGNESIUM HYDROX 2400MG/30ML ORAL SUSPENSION 30 ML CUP PO PRN (13:28)
[2021-01-23] MEDS ORDERED: P-EPHED 60MG/TRIPROLIDI 2.5MG TABLET PO PRN (13:28)
[2021-01-23] MEDS: MAG HYDROX/AL HYDROX/SIMETH 30 ML UNIT-DOSE CUP PO PRN ×2 (15:44→23:55)
[2021-01-23] MEDS: IBUPROFEN 400 MG TABLET (FP) PO PRN (19:07)
[2021-01-23] MEDS: ALBUTEROL SO4 HFA INHALER IH PRN (20:22)
[2021-01-23] MEDS: DIVALPROEX SODIUM 500 MG TABLET E.C. PO SCH (21:09)
[2021-01-23] MEDS: THIAMINE HCL 100 MG TABLET (FP) PO SCH (21:09)
[2021-01-23] MEDS: levETIRAcetam 500 MG TABLET (FP) PO SCH (21:09)
[2021-01-23] MEDS: FERROUS SO4 325 MG TABLET (FP) PO SCH (21:09)
[2021-01-23] MEDS: METHOCARBAMOL 500 MG TABLET PO SCH (21:09)
[2021-01-23] MEDS: FAMOTIDINE 20 MG TABLET PO SCH (21:09)
[2021-01-23] MEDS: hydrOXYzine PAMOATE 25 MG CAPSULE (FP) PO PRN (21:10)
[2021-01-23] MEDS ORDERED: MELATONIN 5 MG TABLETS PO SCH (22:00)
[2021-01-24] MEDS ORDERED: PT OWN MED DRAWER 7, Y5N ONE (03:05)
[2021-01-24] MEDS ORDERED: methaDONE HCL 10 MG TABLET ONE (04:09)
[2021-01-24] MEDS ORDERED: methaDONE HCL 40 MG DISPERSABLE TABLET ONE (04:10)
[2021-01-24] MEDS ORDERED: methaDONE HCL 40 MG DISPERSABLE TABLET PO SCH (06:00)
[2021-01-24] MEDS: methaDONE 80 MG, methaDONE 10 MG PO SCH (06:26)
[2021-01-24] MEDS: METHOCARBAMOL 500 MG TABLET PO SCH ×3 (06:26→21:44)
[2021-01-24] MEDS: NICOTINE 10 MG CARTRIDGE (INHALER) IH PRN (06:28)
[2021-01-24] MEDS: hydrOXYzine PAMOATE 25 MG CAPSULE (FP) PO PRN ×2 (06:28→17:23)
[2021-01-24] MEDS: ALBUTEROL SO4 HFA INHALER IH PRN (09:16)
[2021-01-24] MEDS: cloNIDine HCL 0.1 MG TABLET PO PRN (09:19)
[2021-01-24] MEDS: DIVALPROEX SODIUM 500 MG TABLET E.C. PO SCH ×2 (09:20→21:44)
[2021-01-24] MEDS: FERROUS SO4 325 MG TABLET (FP) PO SCH ×2 (09:20→21:44)
[2021-01-24] MEDS: FAMOTIDINE 20 MG TABLET PO SCH ×2 (09:20→21:44)
[2021-01-24] MEDS: ESCITALOPRAM OXALATE 20 MG TABLET PO SCH (09:21)
[2021-01-24] MEDS: levETIRAcetam 500 MG TABLET (FP) PO SCH ×2 (09:21→21:44)
[2021-01-24] MEDS: MAG HYDROX/AL HYDROX/SIMETH 30 ML UNIT-DOSE CUP PO PRN (11:34)
[2021-01-24] MEDS: IBUPROFEN 400 MG TABLET (FP) PO PRN (17:23)
[2021-01-24] MEDS: THIAMINE HCL 100 MG TABLET (FP) PO SCH (21:44)
[2021-01-24] MEDS ORDERED: SUVOREXANT 10 MG TABLET PO PRN (22:00)
[2021-01-25] MEDS ORDERED: methaDONE HCL 40 MG DISPERSABLE TABLET ONE (02:14)
[2021-01-25] MEDS ORDERED: methaDONE HCL 10 MG TABLET ONE (02:14)
[2021-01-25] MEDS: methaDONE 80 MG, methaDONE 10 MG PO SCH (06:22)
[2021-01-25] MEDS: METHOCARBAMOL 500 MG TABLET PO SCH ×3 (06:23→21:21)
[2021-01-25] MEDS ORDERED: PT OWN MED DRAWER 7, Y5N ONE (06:40)
[2021-01-25] MEDS: hydrOXYzine PAMOATE 25 MG CAPSULE (FP) PO PRN ×2 (07:09→13:37)
[2021-01-25] MEDS: levETIRAcetam 500 MG TABLET (FP) PO SCH ×2 (09:24→21:20)
[2021-01-25] MEDS: DIVALPROEX SODIUM 500 MG TABLET E.C. PO SCH ×2 (09:24→21:21)
[2021-01-25] MEDS: FERROUS SO4 325 MG TABLET (FP) PO SCH ×2 (09:24→21:21)
[2021-01-25] MEDS: FAMOTIDINE 20 MG TABLET PO SCH ×2 (09:25→21:21)
[2021-01-25] MEDS: ESCITALOPRAM OXALATE 20 MG TABLET PO SCH (09:25)
[2021-01-25] MEDS: NICOTINE 10 MG CARTRIDGE (INHALER) IH PRN (09:49)
[2021-01-25] MEDS: cloNIDine HCL 0.1 MG TABLET PO PRN (11:35)
[2021-01-25] MEDS: MAG HYDROX/AL HYDROX/SIMETH 30 ML UNIT-DOSE CUP PO PRN (13:36)
[2021-01-25] MEDS: ACETAMINOPHEN 325 MG TABLET (FP) PO PRN (19:52)
[2021-01-25] MEDS: hydrOXYzine PAMOATE 50 MG CAPSULE (FP) PO PRN (19:52)
[2021-01-25] MEDS: THIAMINE HCL 100 MG TABLET (FP) PO SCH (21:21)
[2021-01-25] MEDS ORDERED: SUVOREXANT 15 MG TABLET PO PRN (22:00)
[2021-01-26] MEDS ORDERED: methaDONE HCL 10 MG TABLET ONE (02:55)
[2021-01-26] MEDS ORDERED: methaDONE HCL 40 MG DISPERSABLE TABLET ONE (02:56)
[2021-01-26] MEDS: METHOCARBAMOL 500 MG TABLET PO SCH ×3 (06:21→21:07)
[2021-01-26] MEDS: hydrOXYzine PAMOATE 50 MG CAPSULE (FP) PO PRN (06:22)
[2021-01-26] MEDS: methaDONE 80 MG, methaDONE 10 MG PO SCH (06:22)
[2021-01-26] MEDS: DIVALPROEX SODIUM 500 MG TABLET E.C. PO SCH ×2 (09:34→21:06)
[2021-01-26] MEDS: levETIRAcetam 500 MG TABLET (FP) PO SCH ×2 (09:35→21:07)
[2021-01-26] MEDS: FAMOTIDINE 20 MG TABLET PO SCH ×2 (09:35→21:08)
[2021-01-26] MEDS: FERROUS SO4 325 MG TABLET (FP) PO SCH ×2 (09:35→21:08)
[2021-01-26] MEDS: ESCITALOPRAM OXALATE 20 MG TABLET PO SCH (09:35)
[2021-01-26] MEDS: PRENATAL VITAMINS W/ FOLIC ACID TABLET (FP) PO SCH (09:36)
[2021-01-26] MEDS: NICOTINE 10 MG CARTRIDGE (INHALER) IH PRN (09:36)
[2021-01-26] MEDS: cloNIDine HCL 0.1 MG TABLET PO PRN (10:39)
[2021-01-26] MEDS: COLLOIDAL OATMEAL 1 BAR EACH TP PRN (14:40)
[2021-01-26] MEDS: ACETAMINOPHEN 325 MG TABLET (FP) PO PRN (19:25)
[2021-01-26] MEDS: SUVOREXANT 20 MG TABLET PO PRN (21:08)
[2021-01-26] MEDS: THIAMINE HCL 100 MG TABLET (FP) PO SCH (21:08)
[2021-01-27] MEDS ORDERED: methaDONE HCL 10 MG TABLET ONE (04:40)
[2021-01-27] MEDS ORDERED: methaDONE HCL 40 MG DISPERSABLE TABLET ONE (04:41)
[2021-01-27] MEDS: methaDONE 80 MG, methaDONE 10 MG PO SCH (06:21)
[2021-01-27] MEDS: METHOCARBAMOL 500 MG TABLET PO SCH ×3 (06:22→21:11)
[2021-01-27] MEDS: hydrOXYzine PAMOATE 50 MG CAPSULE (FP) PO PRN ×2 (06:22→17:03)
[2021-01-27] MEDS: levETIRAcetam 500 MG TABLET (FP) PO SCH ×2 (09:57→21:11)
[2021-01-27] MEDS: DIVALPROEX SODIUM 500 MG TABLET E.C. PO SCH ×2 (09:57→21:11)
[2021-01-27] MEDS: ESCITALOPRAM OXALATE 20 MG TABLET PO SCH (09:57)
[2021-01-27] MEDS: FAMOTIDINE 20 MG TABLET PO SCH ×2 (09:57→21:11)
[2021-01-27] MEDS: TAMSULOSIN HCL 0.4 MG CAP PO SCH (09:57)
[2021-01-27] MEDS: PRENATAL VITAMINS W/ FOLIC ACID TABLET (FP) PO SCH (09:58)
[2021-01-27] MEDS: ACETAMINOPHEN 325 MG TABLET (FP) PO PRN ×2 (09:58→17:03)
[2021-01-27] MEDS: FERROUS SO4 325 MG TABLET (FP) PO SCH ×2 (10:00→21:11)
[2021-01-27] MEDS: MAG HYDROX/AL HYDROX/SIMETH 30 ML UNIT-DOSE CUP PO PRN ×2 (14:17→22:09)
[2021-01-27] MEDS: IBUPROFEN 400 MG TABLET (FP) PO PRN (14:18)
[2021-01-27] MEDS: cloNIDine HCL 0.1 MG TABLET PO PRN (14:18)
[2021-01-27] MEDS: SUVOREXANT 20 MG TABLET PO PRN (21:10)
[2021-01-27] MEDS: THIAMINE HCL 100 MG TABLET (FP) PO SCH (21:11)
[2021-01-27] MEDS: NICOTINE 10 MG CARTRIDGE (INHALER) IH PRN (21:26)
[2021-01-28] MEDS ORDERED: methaDONE HCL 10 MG TABLET ONE (04:07)
[2021-01-28] MEDS ORDERED: methaDONE HCL 40 MG DISPERSABLE TABLET ONE (04:07)
[2021-01-28] MEDS: methaDONE 80 MG, methaDONE 10 MG PO SCH (06:08)
[2021-01-28] MEDS: METHOCARBAMOL 500 MG TABLET PO SCH ×3 (06:08→21:15)
[2021-01-28] MEDS: hydrOXYzine PAMOATE 50 MG CAPSULE (FP) PO PRN ×2 (06:09→17:58)
[2021-01-28] MEDS: cloNIDine HCL 0.1 MG TABLET PO PRN (08:52)
[2021-01-28] MEDS: TAMSULOSIN HCL 0.4 MG CAP PO SCH (08:52)
[2021-01-28] MEDS: IBUPROFEN 400 MG TABLET (FP) PO PRN (08:52)
[2021-01-28] MEDS: FAMOTIDINE 20 MG TABLET PO SCH ×2 (09:39→21:15)
[2021-01-28] MEDS: levETIRAcetam 500 MG TABLET (FP) PO SCH ×2 (09:39→21:15)
[2021-01-28] MEDS: DIVALPROEX SODIUM 500 MG TABLET E.C. PO SCH ×2 (09:39→21:15)
[2021-01-28] MEDS: PRENATAL VITAMINS W/ FOLIC ACID TABLET (FP) PO SCH (09:40)
[2021-01-28] MEDS: FERROUS SO4 325 MG TABLET (FP) PO SCH ×2 (09:40→21:15)
[2021-01-28] MEDS: ESCITALOPRAM OXALATE 20 MG TABLET PO SCH (09:40)
[2021-01-28] MEDS: MAG HYDROX/AL HYDROX/SIMETH 30 ML UNIT-DOSE CUP PO PRN (12:21)
[2021-01-28] MEDS ORDERED: PT OWN MED DRAWER 7, Y5N ONE ×3 (21:13→21:57)
[2021-01-28] MEDS: THIAMINE HCL 100 MG TABLET (FP) PO SCH (21:15)
[2021-01-28] MEDS: ALBUTEROL SO4 HFA INHALER IH PRN (21:37)
[2021-01-28] MEDS: ACETAMINOPHEN 325 MG TABLET (FP) PO PRN (21:38)
[2021-01-29] MEDS: MAG HYDROX/AL HYDROX/SIMETH 30 ML UNIT-DOSE CUP PO PRN ×3 (01:46→19:47)
[2021-01-29] MEDS ORDERED: methaDONE HCL 10 MG TABLET ONE (03:00)
[2021-01-29] MEDS ORDERED: methaDONE HCL 40 MG DISPERSABLE TABLET ONE (03:01)
[2021-01-29] MEDS: hydrOXYzine PAMOATE 50 MG CAPSULE (FP) PO PRN (06:08)
[2021-01-29] MEDS: METHOCARBAMOL 500 MG TABLET PO SCH ×3 (06:08→21:11)
[2021-01-29] MEDS: methaDONE 80 MG, methaDONE 10 MG PO SCH (06:09)
[2021-01-29] MEDS: levETIRAcetam 500 MG TABLET (FP) PO SCH ×2 (09:47→21:10)
[2021-01-29] MEDS: FAMOTIDINE 20 MG TABLET PO SCH ×2 (09:48→21:10)
[2021-01-29] MEDS: ESCITALOPRAM OXALATE 20 MG TABLET PO SCH (09:48)
[2021-01-29] MEDS: PRENATAL VITAMINS W/ FOLIC ACID TABLET (FP) PO SCH (09:48)
[2021-01-29] MEDS: TAMSULOSIN HCL 0.4 MG CAP PO SCH (09:48)
[2021-01-29] MEDS: FERROUS SO4 325 MG TABLET (FP) PO SCH ×2 (10:06→21:10)
[2021-01-29] MEDS: DIVALPROEX SODIUM 500 MG TABLET E.C. PO SCH ×2 (10:06→21:11)
[2021-01-29] MEDS: cloNIDine HCL 0.1 MG TABLET PO PRN (12:11)
[2021-01-29] MEDS: ACETAMINOPHEN 325 MG TABLET (FP) PO PRN (12:11)
[2021-01-29] MEDS ORDERED: PT OWN MED DRAWER 7, Y5N ONE ×2 (19:46→20:12)
[2021-01-29] MEDS: ALBUTEROL SO4 HFA INHALER IH PRN (19:47)
[2021-01-29] MEDS: SUVOREXANT 20 MG TABLET PO PRN (21:09)
[2021-01-29] MEDS: THIAMINE HCL 100 MG TABLET (FP) PO SCH (21:10)
[2021-01-30] MEDS: MAG HYDROX/AL HYDROX/SIMETH 30 ML UNIT-DOSE CUP PO PRN ×2 (01:30→09:48)
[2021-01-30] MEDS ORDERED: methaDONE HCL 10 MG TABLET ONE (04:45)
[2021-01-30] MEDS ORDERED: methaDONE HCL 40 MG DISPERSABLE TABLET ONE (04:46)
[2021-01-30] MEDS: hydrOXYzine PAMOATE 50 MG CAPSULE (FP) PO PRN (06:15)
[2021-01-30] MEDS: METHOCARBAMOL 500 MG TABLET PO SCH ×3 (06:15→21:24)
[2021-01-30] MEDS: methaDONE 80 MG, methaDONE 10 MG PO SCH (06:15)
[2021-01-30] MEDS: levETIRAcetam 500 MG TABLET (FP) PO SCH ×2 (09:47→21:23)
[2021-01-30] MEDS: DIVALPROEX SODIUM 500 MG TABLET E.C. PO SCH ×2 (09:47→21:24)
[2021-01-30] MEDS: FERROUS SO4 325 MG TABLET (FP) PO SCH ×2 (09:47→22:10)
[2021-01-30] MEDS: ESCITALOPRAM OXALATE 20 MG TABLET PO SCH (09:48)
[2021-01-30] MEDS: PRENATAL VITAMINS W/ FOLIC ACID TABLET (FP) PO SCH (09:48)
[2021-01-30] MEDS: TAMSULOSIN HCL 0.4 MG CAP PO SCH (09:48)
[2021-01-30] MEDS: ALBUTEROL SO4 HFA INHALER IH PRN (09:49)
[2021-01-30] MEDS: ACETAMINOPHEN 325 MG TABLET (FP) PO PRN ×2 (11:11→21:24)
[2021-01-30] MEDS: PANTOPRAZOLE 40 MG TABLET PO SCH (12:28)
[2021-01-30] MEDS: IBUPROFEN 400 MG TABLET (FP) PO PRN (16:51)
[2021-01-30] MEDS: SUVOREXANT 20 MG TABLET PO PRN (21:22)
[2021-01-30] MEDS: THIAMINE HCL 100 MG TABLET (FP) PO SCH (21:24)
[2021-01-31] MEDS: MAG HYDROX/AL HYDROX/SIMETH 30 ML UNIT-DOSE CUP PO PRN ×3 (00:20→23:31)
[2021-01-31] MEDS ORDERED: methaDONE HCL 10 MG TABLET ONE (03:04)
[2021-01-31] MEDS ORDERED: methaDONE HCL 40 MG DISPERSABLE TABLET ONE (03:05)
[2021-01-31] MEDS: METHOCARBAMOL 500 MG TABLET PO SCH ×3 (06:09→21:08)
[2021-01-31] MEDS: cloNIDine HCL 0.1 MG TABLET PO PRN (06:09)
[2021-01-31] MEDS: methaDONE 80 MG, methaDONE 10 MG PO SCH (06:09)
[2021-01-31] MEDS: FERROUS SO4 325 MG TABLET (FP) PO SCH ×2 (09:43→21:08)
[2021-01-31] MEDS: levETIRAcetam 500 MG TABLET (FP) PO SCH ×2 (09:43→21:08)
[2021-01-31] MEDS: TAMSULOSIN HCL 0.4 MG CAP PO SCH (09:43)
[2021-01-31] MEDS: DIVALPROEX SODIUM 500 MG TABLET E.C. PO SCH ×2 (09:43→21:08)
[2021-01-31] MEDS: PANTOPRAZOLE 40 MG TABLET PO SCH (09:44)
[2021-01-31] MEDS: PRENATAL VITAMINS W/ FOLIC ACID TABLET (FP) PO SCH (09:44)
[2021-01-31] MEDS: ESCITALOPRAM OXALATE 20 MG TABLET PO SCH (09:44)
[2021-01-31] MEDS: NICOTINE 10 MG CARTRIDGE (INHALER) IH PRN (10:07)
[2021-01-31] MEDS: ACETAMINOPHEN 325 MG TABLET (FP) PO PRN (13:11)
[2021-01-31] MEDS: SUVOREXANT 20 MG TABLET PO PRN (21:08)
[2021-01-31] MEDS: THIAMINE HCL 100 MG TABLET (FP) PO SCH (21:08)
[2021-01-31] MEDS ORDERED: PRAZOSIN HCL 1 MG CAPSULE PO ONE (22:00)
[2021-01-31] MEDS: IBUPROFEN 400 MG TABLET (FP) PO PRN (23:31)
[2021-02-01] MEDS ORDERED: methaDONE HCL 40 MG DISPERSABLE TABLET ONE (03:06)
[2021-02-01] MEDS ORDERED: methaDONE HCL 10 MG TABLET ONE (03:06)
[2021-02-01] MEDS: methaDONE 80 MG, methaDONE 10 MG PO SCH (06:22)
[2021-02-01] MEDS: hydrOXYzine PAMOATE 50 MG CAPSULE (FP) PO PRN ×2 (06:22→13:42)
[2021-02-01] MEDS: METHOCARBAMOL 500 MG TABLET PO SCH ×3 (06:22→21:16)
[2021-02-01] MEDS: ESCITALOPRAM OXALATE 20 MG TABLET PO SCH (09:22)
[2021-02-01] MEDS: PRENATAL VITAMINS W/ FOLIC ACID TABLET (FP) PO SCH (09:22)
[2021-02-01] MEDS: TAMSULOSIN HCL 0.4 MG CAP PO SCH (09:22)
[2021-02-01] MEDS: DIVALPROEX SODIUM 500 MG TABLET E.C. PO SCH ×2 (09:22→21:15)
[2021-02-01] MEDS: FERROUS SO4 325 MG TABLET (FP) PO SCH ×2 (09:23→21:15)
[2021-02-01] MEDS: PANTOPRAZOLE 40 MG TABLET PO SCH (09:23)
[2021-02-01] MEDS: levETIRAcetam 500 MG TABLET (FP) PO SCH ×2 (09:23→21:15)
[2021-02-01] MEDS: ACETAMINOPHEN 325 MG TABLET (FP) PO PRN (09:24)
[2021-02-01] MEDS: ALBUTEROL SO4 HFA INHALER IH PRN (09:25)
[2021-02-01] MEDS ORDERED: MODERNA COVID-19 VACC,MRNA/PF 50 MCG/0.25 ML EACH IM ONE (11:00)
[2021-02-01] MEDS: IBUPROFEN 400 MG TABLET (FP) PO PRN (13:50)
[2021-02-01] MEDS: cloNIDine HCL 0.1 MG TABLET PO PRN (21:15)
[2021-02-01] MEDS: SUVOREXANT 20 MG TABLET PO PRN (21:15)
[2021-02-01] MEDS: THIAMINE HCL 100 MG TABLET (FP) PO SCH (21:15)
[2021-02-02] MEDS ORDERED: methaDONE HCL 10 MG TABLET ONE (05:23)
[2021-02-02] MEDS ORDERED: methaDONE HCL 40 MG DISPERSABLE TABLET ONE (05:23)
[2021-02-02] MEDS: METHOCARBAMOL 500 MG TABLET PO SCH ×3 (06:15→21:07)
[2021-02-02] MEDS: ACETAMINOPHEN 325 MG TABLET (FP) PO PRN (06:15)
[2021-02-02] MEDS: methaDONE 80 MG, methaDONE 10 MG PO SCH (06:16)
[2021-02-02] MEDS: TAMSULOSIN HCL 0.4 MG CAP PO SCH (09:30)
[2021-02-02] MEDS: DIVALPROEX SODIUM 500 MG TABLET E.C. PO SCH ×2 (09:54→21:06)
[2021-02-02] MEDS: levETIRAcetam 500 MG TABLET (FP) PO SCH ×2 (09:54→21:07)
[2021-02-02] MEDS: FERROUS SO4 325 MG TABLET (FP) PO SCH ×2 (09:54→21:07)
[2021-02-02] MEDS: PRENATAL VITAMINS W/ FOLIC ACID TABLET (FP) PO SCH (09:55)
[2021-02-02] MEDS: hydrOXYzine PAMOATE 50 MG CAPSULE (FP) PO PRN (09:55)
[2021-02-02] MEDS: PANTOPRAZOLE 40 MG TABLET PO SCH (09:55)
[2021-02-02] MEDS: ESCITALOPRAM OXALATE 20 MG TABLET PO SCH (09:55)
[2021-02-02] MEDS: MAG HYDROX/AL HYDROX/SIMETH 30 ML UNIT-DOSE CUP PO PRN (11:05)
[2021-02-02] MEDS: cloNIDine HCL 0.1 MG TABLET PO PRN ×2 (12:30→21:07)
[2021-02-02] MEDS: THIAMINE HCL 100 MG TABLET (FP) PO SCH (21:07)
[2021-02-02] MEDS: DOCUSATE SODIUM 100 MG CAPSULE (FP) PO SCH (21:07)
[2021-02-02] MEDS: SUVOREXANT 20 MG TABLET PO PRN (21:10)
[2021-02-02] MEDS: IBUPROFEN 400 MG TABLET (FP) PO PRN (21:10)
[2021-02-03] MEDS: MAG HYDROX/AL HYDROX/SIMETH 30 ML UNIT-DOSE CUP PO PRN ×2 (00:14→12:13)
[2021-02-03] MEDS ORDERED: methaDONE HCL 10 MG TABLET ONE (05:22)
[2021-02-03] MEDS ORDERED: methaDONE HCL 40 MG DISPERSABLE TABLET ONE (05:22)
[2021-02-03] MEDS: methaDONE 80 MG, methaDONE 10 MG PO SCH (06:18)
[2021-02-03] MEDS: METHOCARBAMOL 500 MG TABLET PO SCH ×3 (06:18→21:10)
[2021-02-03] MEDS: TAMSULOSIN HCL 0.4 MG CAP PO SCH (07:54)
[2021-02-03] MEDS: levETIRAcetam 500 MG TABLET (FP) PO SCH ×2 (09:48→21:10)
[2021-02-03] MEDS: PANTOPRAZOLE 40 MG TABLET PO SCH (09:48)
[2021-02-03] MEDS: PRENATAL VITAMINS W/ FOLIC ACID TABLET (FP) PO SCH (09:48)
[2021-02-03] MEDS: FERROUS SO4 325 MG TABLET (FP) PO SCH ×2 (09:48→21:10)
[2021-02-03] MEDS: ESCITALOPRAM OXALATE 20 MG TABLET PO SCH (09:48)
[2021-02-03] MEDS: DIVALPROEX SODIUM 500 MG TABLET E.C. PO SCH ×2 (10:57→21:10)
[2021-02-03] MEDS: ACETAMINOPHEN 325 MG TABLET (FP) PO PRN (10:59)
[2021-02-03] MEDS: DOCUSATE SODIUM 100 MG CAPSULE (FP) PO SCH (21:10)
[2021-02-03] MEDS: THIAMINE HCL 100 MG TABLET (FP) PO SCH (21:10)
[2021-02-03] MEDS: SUVOREXANT 20 MG TABLET PO PRN (21:11)
[2021-02-03] MEDS: NICOTINE 10 MG CARTRIDGE (INHALER) IH PRN (21:55)
[2021-02-03] MEDS: ALBUTEROL SO4 HFA INHALER IH PRN (21:55)
[2021-02-04] MEDS ORDERED: methaDONE HCL 10 MG TABLET ONE (04:19)
[2021-02-04] MEDS ORDERED: methaDONE HCL 40 MG DISPERSABLE TABLET ONE (04:20)
[2021-02-04] MEDS: METHOCARBAMOL 500 MG TABLET PO SCH ×3 (06:16→21:52)
[2021-02-04] MEDS: methaDONE 80 MG, methaDONE 10 MG PO SCH (06:17)
[2021-02-04] MEDS: cloNIDine HCL 0.1 MG TABLET PO PRN (06:19)
[2021-02-04] MEDS: ESCITALOPRAM OXALATE 20 MG TABLET PO SCH (09:20)
[2021-02-04] MEDS: levETIRAcetam 500 MG TABLET (FP) PO SCH ×2 (09:20→21:22)
[2021-02-04] MEDS: PANTOPRAZOLE 40 MG TABLET PO SCH (09:21)
[2021-02-04] MEDS: TAMSULOSIN HCL 0.4 MG CAP PO SCH (09:21)
[2021-02-04] MEDS: FERROUS SO4 325 MG TABLET (FP) PO SCH ×2 (09:21→21:23)
[2021-02-04] MEDS: DIVALPROEX SODIUM 500 MG TABLET E.C. PO SCH ×2 (09:21→21:23)
[2021-02-04] MEDS: PRENATAL VITAMINS W/ FOLIC ACID TABLET (FP) PO SCH (09:22)
[2021-02-04] MEDS: THIAMINE HCL 100 MG TABLET (FP) PO SCH (21:10)
[2021-02-04] MEDS: SUVOREXANT 20 MG TABLET PO PRN (21:21)
[2021-02-04] MEDS: DOCUSATE SODIUM 100 MG CAPSULE (FP) PO SCH (21:23)
[2021-02-04] MEDS: ACETAMINOPHEN 325 MG TABLET (FP) PO PRN (22:46)
[2021-02-05] MEDS: METHOCARBAMOL 500 MG TABLET PO SCH ×3 (06:07→21:15)
[2021-02-05] MEDS ORDERED: methaDONE HCL 10 MG TABLET ONE (06:09)
[2021-02-05] MEDS ORDERED: methaDONE HCL 40 MG DISPERSABLE TABLET ONE (06:10)
[2021-02-05] MEDS: methaDONE 80 MG, methaDONE 10 MG PO SCH (06:11)
[2021-02-05] MEDS: MAG HYDROX/AL HYDROX/SIMETH 30 ML UNIT-DOSE CUP PO PRN (06:11)
[2021-02-05] MEDS: cloNIDine HCL 0.1 MG TABLET PO PRN ×2 (09:50→21:16)
[2021-02-05] MEDS: DIVALPROEX SODIUM 500 MG TABLET E.C. PO SCH ×2 (09:51→21:16)
[2021-02-05] MEDS: levETIRAcetam 500 MG TABLET (FP) PO SCH ×2 (09:51→21:17)
[2021-02-05] MEDS: ESCITALOPRAM OXALATE 20 MG TABLET PO SCH (09:51)
[2021-02-05] MEDS: FERROUS SO4 325 MG TABLET (FP) PO SCH ×2 (09:51→21:16)
[2021-02-05] MEDS: PANTOPRAZOLE 40 MG TABLET PO SCH (09:51)
[2021-02-05] MEDS: TAMSULOSIN HCL 0.4 MG CAP PO SCH (09:51)
[2021-02-05] MEDS: NICOTINE 10 MG CARTRIDGE (INHALER) IH PRN ×2 (09:52→21:55)
[2021-02-05] MEDS: PRENATAL VITAMINS W/ FOLIC ACID TABLET (FP) PO SCH (09:52)
[2021-02-05] MEDS: ALBUTEROL SO4 HFA INHALER IH PRN (11:33)
[2021-02-05] MEDS: THIAMINE HCL 100 MG TABLET (FP) PO SCH (21:15)
[2021-02-05] MEDS: DOCUSATE SODIUM 100 MG CAPSULE (FP) PO SCH (21:16)
[2021-02-05] MEDS: SUVOREXANT 20 MG TABLET PO PRN (21:19)
[2021-02-06] MEDS: IBUPROFEN 400 MG TABLET (FP) PO PRN (00:53)
[2021-02-06] MEDS ORDERED: methaDONE HCL 10 MG TABLET ONE (04:27)
[2021-02-06] MEDS ORDERED: methaDONE HCL 40 MG DISPERSABLE TABLET ONE (04:27)
[2021-02-06] MEDS ORDERED: methaDONE HCL 40 MG DISPERSABLE TABLET PO SCH (06:00)
[2021-02-06] MEDS: ACETAMINOPHEN 325 MG TABLET (FP) PO PRN ×2 (06:18→16:55)
[2021-02-06] MEDS: METHOCARBAMOL 500 MG TABLET PO SCH ×3 (06:18→21:12)
[2021-02-06] MEDS: methaDONE 80 MG, methaDONE 10 MG PO SCH (06:18)
[2021-02-06] MEDS: TAMSULOSIN HCL 0.4 MG CAP PO SCH (09:22)
[2021-02-06] MEDS: DIVALPROEX SODIUM 500 MG TABLET E.C. PO SCH ×2 (09:23→21:12)
[2021-02-06] MEDS: FERROUS SO4 325 MG TABLET (FP) PO SCH ×2 (09:23→21:12)
[2021-02-06] MEDS: ESCITALOPRAM OXALATE 20 MG TABLET PO SCH (09:24)
[2021-02-06] MEDS: PANTOPRAZOLE 40 MG TABLET PO SCH (09:24)
[2021-02-06] MEDS: levETIRAcetam 500 MG TABLET (FP) PO SCH ×2 (09:24→21:11)
[2021-02-06] MEDS: PRENATAL VITAMINS W/ FOLIC ACID TABLET (FP) PO SCH (09:24)
[2021-02-06] MEDS ORDERED: PT OWN MED DRAWER 7, Y5N ONE (09:51)
[2021-02-06] MEDS: hydrOXYzine PAMOATE 50 MG CAPSULE (FP) PO PRN (15:16)
[2021-02-06] MEDS: SUVOREXANT 20 MG TABLET PO PRN (21:11)
[2021-02-06] MEDS: cloNIDine HCL 0.1 MG TABLET PO PRN (21:11)
[2021-02-06] MEDS: DOCUSATE SODIUM 100 MG CAPSULE (FP) PO SCH (21:11)
[2021-02-06] MEDS: THIAMINE HCL 100 MG TABLET (FP) PO SCH (21:12)
[2021-02-06] MEDS: IBUPROFEN 600 MG TABLET (FP) PO PRN (22:33)
[2021-02-06] MEDS: ALBUTEROL SO4 HFA INHALER IH PRN (22:34)
[2021-02-07] MEDS ORDERED: methaDONE HCL 10 MG TABLET ONE (05:19)
[2021-02-07] MEDS ORDERED: methaDONE HCL 40 MG DISPERSABLE TABLET ONE (05:19)
[2021-02-07] MEDS: methaDONE 80 MG, methaDONE 10 MG PO SCH (06:11)
[2021-02-07] MEDS: METHOCARBAMOL 500 MG TABLET PO SCH ×3 (06:12→21:45)
[2021-02-07] MEDS: TAMSULOSIN HCL 0.4 MG CAP PO SCH (07:34)
[2021-02-07] MEDS: FERROUS SO4 325 MG TABLET (FP) PO SCH ×2 (09:41→22:01)
[2021-02-07] MEDS: levETIRAcetam 500 MG TABLET (FP) PO SCH ×2 (09:41→21:45)
[2021-02-07] MEDS: DIVALPROEX SODIUM 500 MG TABLET E.C. PO SCH ×2 (09:41→21:44)
[2021-02-07] MEDS: PRENATAL VITAMINS W/ FOLIC ACID TABLET (FP) PO SCH (09:42)
[2021-02-07] MEDS: PANTOPRAZOLE 40 MG TABLET PO SCH (09:42)
[2021-02-07] MEDS: ESCITALOPRAM OXALATE 20 MG TABLET PO SCH (09:42)
[2021-02-07] MEDS: NICOTINE 10 MG CARTRIDGE (INHALER) IH PRN (09:45)
[2021-02-07] MEDS ORDERED: PT OWN MED DRAWER 7, Y5N ONE (11:26)
[2021-02-07] MEDS: ACETAMINOPHEN 325 MG TABLET (FP) PO PRN (11:27)
[2021-02-07 12:41] LABS: BASO % 0.3 % (0-2.0); HEMATOCRIT 34.2 % (35.4-49); HEMOGLOBIN 11.2 GM/dL (11.7-16.9); LYMPH % 37.1 % (8-40); MCH 25.4 pg (25.7-33.7); MCHC 32.8 g/dl (32.0-35.9); MEAN CELL VOLUME 77.6 fl (80-96); MEAN PLT VOLUME 9.6 fl (7.5-11.1); MONO % 7.4 % (3.8-10.2); NEUT % 52.2 % (42.8-82.8); PLATELET COUNT 292 10^3/uL (134-434); RDW 25.9 % (11.9-15.9); WHITE BLOOD COUNT 8.1 K/mm3 (4.0-10.0)
[2021-02-07] MEDS: IBUPROFEN 600 MG TABLET (FP) PO PRN (18:45)
[2021-02-07] MEDS: THIAMINE HCL 100 MG TABLET (FP) PO SCH (21:44)
[2021-02-07] MEDS: DOCUSATE SODIUM 100 MG CAPSULE (FP) PO SCH (21:45)
[2021-02-07] MEDS: SUVOREXANT 20 MG TABLET PO PRN (21:48)
[2021-02-07] MEDS: cloNIDine HCL 0.1 MG TABLET PO PRN (21:49)
[2021-02-08] MEDS ORDERED: methaDONE HCL 40 MG DISPERSABLE TABLET ONE (03:48)
[2021-02-08] MEDS ORDERED: methaDONE HCL 10 MG TABLET ONE (03:48)
[2021-02-08] MEDS: METHOCARBAMOL 500 MG TABLET PO SCH ×3 (06:10→21:32)
[2021-02-08] MEDS: methaDONE 80 MG, methaDONE 10 MG PO SCH (06:10)
[2021-02-08] MEDS: IBUPROFEN 600 MG TABLET (FP) PO PRN ×2 (07:12→17:15)
[2021-02-08] MEDS: TAMSULOSIN HCL 0.4 MG CAP PO SCH (08:22)
[2021-02-08] MEDS: PRENATAL VITAMINS W/ FOLIC ACID TABLET (FP) PO SCH (09:51)
[2021-02-08] MEDS: levETIRAcetam 500 MG TABLET (FP) PO SCH ×2 (09:51→21:32)
[2021-02-08] MEDS: PANTOPRAZOLE 40 MG TABLET PO SCH (09:51)
[2021-02-08] MEDS: DIVALPROEX SODIUM 500 MG TABLET E.C. PO SCH ×2 (09:51→21:32)
[2021-02-08] MEDS: ESCITALOPRAM OXALATE 20 MG TABLET PO SCH (09:52)
[2021-02-08] MEDS: FERROUS SO4 325 MG TABLET (FP) PO SCH ×2 (09:52→21:32)
[2021-02-08] MEDS: COLLOIDAL OATMEAL 1 BAR EACH TP PRN (09:53)
[2021-02-08] MEDS: ACETAMINOPHEN 325 MG TABLET (FP) PO PRN ×2 (11:21→22:56)
[2021-02-08] MEDS: DOCUSATE SODIUM 100 MG CAPSULE (FP) PO SCH (21:32)
[2021-02-08] MEDS: SUVOREXANT 20 MG TABLET PO PRN (21:32)
[2021-02-08] MEDS: THIAMINE HCL 100 MG TABLET (FP) PO SCH (21:32)
[2021-02-08] MEDS: cloNIDine HCL 0.1 MG TABLET PO PRN (21:32)
[2021-02-09] MEDS ORDERED: methaDONE HCL 40 MG DISPERSABLE TABLET ONE (05:33)
[2021-02-09] MEDS ORDERED: methaDONE HCL 10 MG TABLET ONE (05:33)
[2021-02-09] MEDS: METHOCARBAMOL 500 MG TABLET PO SCH ×3 (06:13→23:18)
[2021-02-09] MEDS: methaDONE 80 MG, methaDONE 10 MG PO SCH (06:13)
[2021-02-09] MEDS: MAG HYDROX/AL HYDROX/SIMETH 30 ML UNIT-DOSE CUP PO PRN ×2 (06:15→21:15)
[2021-02-09] MEDS: TAMSULOSIN HCL 0.4 MG CAP PO SCH (07:37)
[2021-02-09] MEDS: FERROUS SO4 325 MG TABLET (FP) PO SCH ×2 (09:41→23:18)
[2021-02-09] MEDS: DIVALPROEX SODIUM 500 MG TABLET E.C. PO SCH ×2 (09:41→21:15)
[2021-02-09] MEDS: levETIRAcetam 500 MG TABLET (FP) PO SCH ×2 (09:41→21:15)
[2021-02-09] MEDS: ESCITALOPRAM OXALATE 20 MG TABLET PO SCH (09:42)
[2021-02-09] MEDS: PRENATAL VITAMINS W/ FOLIC ACID TABLET (FP) PO SCH (09:42)
[2021-02-09] MEDS: PANTOPRAZOLE 40 MG TABLET PO SCH (09:42)
[2021-02-09] MEDS: ACETAMINOPHEN 325 MG TABLET (FP) PO PRN (11:38)
[2021-02-09] MEDS ORDERED: PT OWN MED DRAWER 7, Y5N ONE (16:37)
[2021-02-09] MEDS: IBUPROFEN 600 MG TABLET (FP) PO PRN (16:40)
[2021-02-09] MEDS: ALBUTEROL SO4 HFA INHALER IH PRN (16:41)
[2021-02-09] MEDS: cloNIDine HCL 0.1 MG TABLET PO PRN (19:11)
[2021-02-09] MEDS: SUVOREXANT 20 MG TABLET PO PRN (21:13)
[2021-02-09] MEDS: THIAMINE HCL 100 MG TABLET (FP) PO SCH (21:14)
[2021-02-09] MEDS: DOCUSATE SODIUM 100 MG CAPSULE (FP) PO SCH (23:18)
[2021-02-10] MEDS ORDERED: methaDONE HCL 10 MG TABLET ONE (04:09)
[2021-02-10] MEDS ORDERED: methaDONE HCL 40 MG DISPERSABLE TABLET ONE (04:10)
[2021-02-10] MEDS: methaDONE 80 MG, methaDONE 10 MG PO SCH (06:20)
[2021-02-10] MEDS: METHOCARBAMOL 500 MG TABLET PO SCH ×3 (06:21→21:58)
[2021-02-10] MEDS: PRENATAL VITAMINS W/ FOLIC ACID TABLET (FP) PO SCH (09:40)
[2021-02-10] MEDS: levETIRAcetam 500 MG TABLET (FP) PO SCH ×2 (09:41→21:05)
[2021-02-10] MEDS: DIVALPROEX SODIUM 500 MG TABLET E.C. PO SCH ×2 (09:41→21:06)
[2021-02-10] MEDS: ESCITALOPRAM OXALATE 20 MG TABLET PO SCH (09:41)
[2021-02-10] MEDS: TAMSULOSIN HCL 0.4 MG CAP PO SCH (09:41)
[2021-02-10] MEDS: FERROUS SO4 325 MG TABLET (FP) PO SCH ×2 (09:41→21:06)
[2021-02-10] MEDS: PANTOPRAZOLE 40 MG TABLET PO SCH (09:41)
[2021-02-10] MEDS: ALBUTEROL SO4 HFA INHALER IH PRN (09:42)
[2021-02-10] MEDS: hydrOXYzine PAMOATE 50 MG CAPSULE (FP) PO PRN (10:13)
[2021-02-10] MEDS: NICOTINE 10 MG CARTRIDGE (INHALER) IH PRN (10:13)
[2021-02-10] MEDS: cloNIDine HCL 0.1 MG TABLET PO PRN ×2 (12:53→21:10)
[2021-02-10] MEDS: DOCUSATE SODIUM 100 MG CAPSULE (FP) PO SCH (21:05)
[2021-02-10] MEDS: SUVOREXANT 20 MG TABLET PO PRN (21:05)
[2021-02-10] MEDS: IBUPROFEN 600 MG TABLET (FP) PO PRN (21:06)
[2021-02-10] MEDS: THIAMINE HCL 100 MG TABLET (FP) PO SCH (21:06)
[2021-02-11] MEDS: MAG HYDROX/AL HYDROX/SIMETH 30 ML UNIT-DOSE CUP PO PRN ×2 (01:15→14:29)
[2021-02-11] MEDS: ALBUTEROL SO4 HFA INHALER IH PRN ×2 (03:54→23:57)
[2021-02-11] MEDS ORDERED: methaDONE HCL 10 MG TABLET ONE (05:20)
[2021-02-11] MEDS ORDERED: methaDONE HCL 40 MG DISPERSABLE TABLET ONE (05:21)
[2021-02-11] MEDS: methaDONE 80 MG, methaDONE 10 MG PO SCH (06:11)
[2021-02-11] MEDS: METHOCARBAMOL 500 MG TABLET PO SCH ×3 (06:13→21:20)
[2021-02-11] MEDS: IBUPROFEN 600 MG TABLET (FP) PO PRN (08:52)
[2021-02-11] MEDS: TAMSULOSIN HCL 0.4 MG CAP PO SCH (08:53)
[2021-02-11] MEDS: levETIRAcetam 500 MG TABLET (FP) PO SCH ×2 (09:01→21:16)
[2021-02-11] MEDS: PANTOPRAZOLE 40 MG TABLET PO SCH (09:02)
[2021-02-11] MEDS: ESCITALOPRAM OXALATE 20 MG TABLET PO SCH (09:02)
[2021-02-11] MEDS: DIVALPROEX SODIUM 500 MG TABLET E.C. PO SCH ×2 (09:02→21:17)
[2021-02-11] MEDS: FERROUS SO4 325 MG TABLET (FP) PO SCH ×2 (09:02→21:17)
[2021-02-11] MEDS: PRENATAL VITAMINS W/ FOLIC ACID TABLET (FP) PO SCH (09:02)
[2021-02-11] MEDS: NICOTINE 10 MG CARTRIDGE (INHALER) IH PRN (10:11)
[2021-02-11] MEDS: THIAMINE HCL 100 MG TABLET (FP) PO SCH (21:16)
[2021-02-11] MEDS: DOCUSATE SODIUM 100 MG CAPSULE (FP) PO SCH (21:16)
[2021-02-11] MEDS: SUVOREXANT 10 MG TABLET PO PRN (21:18)
[2021-02-11] MEDS: ACETAMINOPHEN 325 MG TABLET (FP) PO PRN (23:57)
[2021-02-12] MEDS ORDERED: methaDONE HCL 10 MG TABLET ONE (05:57)
[2021-02-12] MEDS ORDERED: methaDONE HCL 40 MG DISPERSABLE TABLET ONE (05:58)
[2021-02-12] MEDS: METHOCARBAMOL 500 MG TABLET PO SCH ×3 (06:30→21:22)
[2021-02-12] MEDS: methaDONE 80 MG, methaDONE 10 MG PO SCH (06:30)
[2021-02-12] MEDS: ESCITALOPRAM OXALATE 20 MG TABLET PO SCH (09:07)
[2021-02-12] MEDS: DIVALPROEX SODIUM 500 MG TABLET E.C. PO SCH ×2 (09:08→21:20)
[2021-02-12] MEDS: levETIRAcetam 500 MG TABLET (FP) PO SCH ×2 (09:08→21:20)
[2021-02-12] MEDS: IBUPROFEN 600 MG TABLET (FP) PO PRN ×2 (09:08→21:19)
[2021-02-12] MEDS: FERROUS SO4 325 MG TABLET (FP) PO SCH ×2 (09:08→21:20)
[2021-02-12] MEDS: PRENATAL VITAMINS W/ FOLIC ACID TABLET (FP) PO SCH (09:08)
[2021-02-12] MEDS: PANTOPRAZOLE 40 MG TABLET PO SCH (09:08)
[2021-02-12] MEDS: TAMSULOSIN HCL 0.4 MG CAP PO SCH (09:08)
[2021-02-12] MEDS: hydrOXYzine PAMOATE 50 MG CAPSULE (FP) PO PRN (09:09)
[2021-02-12] MEDS: MAG HYDROX/AL HYDROX/SIMETH 30 ML UNIT-DOSE CUP PO PRN (12:14)
[2021-02-12] MEDS: THIAMINE HCL 100 MG TABLET (FP) PO SCH (21:20)
[2021-02-12] MEDS: DOCUSATE SODIUM 100 MG CAPSULE (FP) PO SCH (21:20)
[2021-02-12] MEDS: ALBUTEROL SO4 HFA INHALER IH PRN (22:58)
[2021-02-13] MEDS: MAG HYDROX/AL HYDROX/SIMETH 30 ML UNIT-DOSE CUP PO PRN ×2 (01:13→06:27)
[2021-02-13] MEDS ORDERED: methaDONE HCL 10 MG TABLET ONE (03:29)
[2021-02-13] MEDS ORDERED: methaDONE HCL 40 MG DISPERSABLE TABLET ONE (03:30)
[2021-02-13] MEDS: methaDONE 80 MG, methaDONE 10 MG PO SCH (06:09)
[2021-02-13] MEDS: METHOCARBAMOL 500 MG TABLET PO SCH ×3 (06:13→21:10)
[2021-02-13] MEDS: FERROUS SO4 325 MG TABLET (FP) PO SCH ×2 (09:32→21:10)
[2021-02-13] MEDS: levETIRAcetam 500 MG TABLET (FP) PO SCH ×2 (09:32→21:10)
[2021-02-13] MEDS: PRENATAL VITAMINS W/ FOLIC ACID TABLET (FP) PO SCH (09:33)
[2021-02-13] MEDS: PANTOPRAZOLE 40 MG TABLET PO SCH (09:33)
[2021-02-13] MEDS: ESCITALOPRAM OXALATE 20 MG TABLET PO SCH (09:33)
[2021-02-13] MEDS: TAMSULOSIN HCL 0.4 MG CAP PO SCH (09:33)
[2021-02-13] MEDS: DIVALPROEX SODIUM 500 MG TABLET E.C. PO SCH ×2 (09:33→21:10)
[2021-02-13] MEDS: ACETAMINOPHEN 325 MG TABLET (FP) PO PRN (09:36)
[2021-02-13] MEDS: IBUPROFEN 600 MG TABLET (FP) PO PRN (11:01)
[2021-02-13] MEDS: hydrOXYzine PAMOATE 50 MG CAPSULE (FP) PO PRN (12:25)
[2021-02-13] MEDS: cloNIDine HCL 0.1 MG TABLET PO PRN (15:38)
[2021-02-13] MEDS: DOCUSATE SODIUM 100 MG CAPSULE (FP) PO SCH (21:09)
[2021-02-13] MEDS: THIAMINE HCL 100 MG TABLET (FP) PO SCH (21:10)
[2021-02-13] MEDS: SUVOREXANT 10 MG TABLET PO PRN (21:12)
[2021-02-14] MEDS ORDERED: methaDONE HCL 10 MG TABLET ONE (03:34)
[2021-02-14] MEDS ORDERED: methaDONE HCL 40 MG DISPERSABLE TABLET ONE (03:35)
[2021-02-14] MEDS: methaDONE 80 MG, methaDONE 10 MG PO SCH (06:16)
[2021-02-14] MEDS: METHOCARBAMOL 500 MG TABLET PO SCH ×3 (06:17→21:18)
[2021-02-14] MEDS: cloNIDine HCL 0.1 MG TABLET PO PRN (06:19)
[2021-02-14] MEDS: PANTOPRAZOLE 40 MG TABLET PO SCH (09:45)
[2021-02-14] MEDS: FERROUS SO4 325 MG TABLET (FP) PO SCH ×2 (09:46→21:17)
[2021-02-14] MEDS: DIVALPROEX SODIUM 500 MG TABLET E.C. PO SCH ×2 (09:47→21:17)
[2021-02-14] MEDS: TAMSULOSIN HCL 0.4 MG CAP PO SCH (09:47)
[2021-02-14] MEDS: ESCITALOPRAM OXALATE 20 MG TABLET PO SCH (09:47)
[2021-02-14] MEDS: levETIRAcetam 500 MG TABLET (FP) PO SCH ×2 (09:47→21:16)
[2021-02-14] MEDS: PRENATAL VITAMINS W/ FOLIC ACID TABLET (FP) PO SCH (09:47)
[2021-02-14] MEDS: hydrOXYzine PAMOATE 50 MG CAPSULE (FP) PO PRN (09:47)
[2021-02-14] MEDS: IBUPROFEN 600 MG TABLET (FP) PO PRN ×2 (09:48→21:17)
[2021-02-14] MEDS: MAG HYDROX/AL HYDROX/SIMETH 30 ML UNIT-DOSE CUP PO PRN ×2 (12:41→22:07)
[2021-02-14] MEDS: SUVOREXANT 10 MG TABLET PO PRN (21:15)
[2021-02-14] MEDS: DOCUSATE SODIUM 100 MG CAPSULE (FP) PO SCH (21:16)
[2021-02-14] MEDS: THIAMINE HCL 100 MG TABLET (FP) PO SCH (21:17)
[2021-02-15] MEDS: ALBUTEROL SO4 HFA INHALER IH PRN (03:02)
[2021-02-15] MEDS ORDERED: methaDONE HCL 10 MG TABLET ONE (03:21)
[2021-02-15] MEDS ORDERED: methaDONE HCL 40 MG DISPERSABLE TABLET ONE (03:22)
[2021-02-15] MEDS: METHOCARBAMOL 500 MG TABLET PO SCH (06:12)
[2021-02-15] MEDS: methaDONE 80 MG, methaDONE 10 MG PO SCH (06:12)
[2021-02-15] MEDS: levETIRAcetam 500 MG TABLET (FP) PO SCH ×2 (10:16→21:32)
[2021-02-15] MEDS: TAMSULOSIN HCL 0.4 MG CAP PO SCH (10:16)
[2021-02-15] MEDS: ESCITALOPRAM OXALATE 20 MG TABLET PO SCH (10:17)
[2021-02-15] MEDS: IBUPROFEN 600 MG TABLET (FP) PO PRN ×2 (10:17→21:35)
[2021-02-15] MEDS: DIVALPROEX SODIUM 500 MG TABLET E.C. PO SCH ×2 (10:17→21:33)
[2021-02-15] MEDS: PRENATAL VITAMINS W/ FOLIC ACID TABLET (FP) PO SCH (10:18)
[2021-02-15] MEDS: FERROUS SO4 325 MG TABLET (FP) PO SCH ×2 (10:18→21:33)
[2021-02-15] MEDS: PANTOPRAZOLE 40 MG TABLET PO SCH (10:18)
[2021-02-15] MEDS: hydrOXYzine PAMOATE 50 MG CAPSULE (FP) PO PRN (10:18)
[2021-02-15] MEDS: MAG HYDROX/AL HYDROX/SIMETH 30 ML UNIT-DOSE CUP PO PRN (13:06)
[2021-02-15] MEDS: cloNIDine HCL 0.1 MG TABLET PO PRN (17:10)
[2021-02-15] MEDS: DOCUSATE SODIUM 100 MG CAPSULE (FP) PO SCH (21:31)
[2021-02-15] MEDS: THIAMINE HCL 100 MG TABLET (FP) PO SCH (21:33)
[2021-02-15] MEDS: SUVOREXANT 10 MG TABLET PO PRN (21:34)
[2021-02-16] MEDS ORDERED: methaDONE HCL 40 MG DISPERSABLE TABLET ONE (05:17)
[2021-02-16] MEDS ORDERED: methaDONE HCL 10 MG TABLET ONE (05:17)
[2021-02-16] MEDS: methaDONE 80 MG, methaDONE 10 MG PO SCH (06:24)
[2021-02-16] MEDS: METHOCARBAMOL 500 MG TABLET PO PRN (06:25)
[2021-02-16] MEDS: hydrOXYzine PAMOATE 50 MG CAPSULE (FP) PO PRN (06:25)
[2021-02-16] MEDS: TAMSULOSIN HCL 0.4 MG CAP PO SCH (07:36)
[2021-02-16] MEDS: DIVALPROEX SODIUM 500 MG TABLET E.C. PO SCH ×2 (09:25→21:11)
[2021-02-16] MEDS: levETIRAcetam 500 MG TABLET (FP) PO SCH ×2 (09:25→21:10)
[2021-02-16] MEDS: PRENATAL VITAMINS W/ FOLIC ACID TABLET (FP) PO SCH (09:25)
[2021-02-16] MEDS: FERROUS SO4 325 MG TABLET (FP) PO SCH ×2 (09:25→21:11)
[2021-02-16] MEDS: ESCITALOPRAM OXALATE 20 MG TABLET PO SCH (09:25)
[2021-02-16] MEDS: PANTOPRAZOLE 40 MG TABLET PO SCH (09:26)
[2021-02-16] MEDS: ACETAMINOPHEN 325 MG TABLET (FP) PO PRN (11:20)
[2021-02-16] MEDS: ALBUTEROL SO4 HFA INHALER IH PRN (11:22)
[2021-02-16] MEDS: SUVOREXANT 10 MG TABLET PO PRN (21:08)
[2021-02-16] MEDS: cloNIDine HCL 0.1 MG TABLET PO PRN (21:10)
[2021-02-16] MEDS: THIAMINE HCL 100 MG TABLET (FP) PO SCH (21:11)
[2021-02-16] MEDS: DOCUSATE SODIUM 100 MG CAPSULE (FP) PO SCH (21:11)
[2021-02-17] MEDS ORDERED: methaDONE HCL 40 MG DISPERSABLE TABLET ONE (02:05)
[2021-02-17] MEDS ORDERED: methaDONE HCL 10 MG TABLET ONE (02:05)
[2021-02-17] MEDS: methaDONE 80 MG, methaDONE 10 MG PO SCH (06:11)
[2021-02-17] MEDS: METHOCARBAMOL 500 MG TABLET PO PRN (06:14)
[2021-02-17] MEDS: ACETAMINOPHEN 325 MG TABLET (FP) PO PRN (08:49)
[2021-02-17] MEDS: TAMSULOSIN HCL 0.4 MG CAP PO SCH (08:51)
[2021-02-17] MEDS: hydrOXYzine PAMOATE 50 MG CAPSULE (FP) PO PRN (08:52)
[2021-02-17] MEDS: DIVALPROEX SODIUM 500 MG TABLET E.C. PO SCH ×2 (09:00→21:46)
[2021-02-17] MEDS: levETIRAcetam 500 MG TABLET (FP) PO SCH ×2 (09:00→21:20)
[2021-02-17] MEDS: PANTOPRAZOLE 40 MG TABLET PO SCH (09:01)
[2021-02-17] MEDS: PRENATAL VITAMINS W/ FOLIC ACID TABLET (FP) PO SCH (09:01)
[2021-02-17] MEDS: FERROUS SO4 325 MG TABLET (FP) PO SCH ×2 (09:01→21:20)
[2021-02-17] MEDS: ESCITALOPRAM OXALATE 20 MG TABLET PO SCH (09:01)
[2021-02-17] MEDS: NICOTINE 10 MG CARTRIDGE (INHALER) IH PRN ×2 (09:51→21:42)
[2021-02-17] MEDS: MAG HYDROX/AL HYDROX/SIMETH 30 ML UNIT-DOSE CUP PO PRN (12:21)
[2021-02-17] MEDS: IBUPROFEN 600 MG TABLET (FP) PO PRN (16:45)
[2021-02-17] MEDS: THIAMINE HCL 100 MG TABLET (FP) PO SCH (21:19)
[2021-02-17] MEDS: DOCUSATE SODIUM 100 MG CAPSULE (FP) PO SCH (21:19)
[2021-02-17] MEDS: SUVOREXANT 10 MG TABLET PO PRN (21:21)
[2021-02-17] MEDS: cloNIDine HCL 0.1 MG TABLET PO PRN (21:21)
[2021-02-17] MEDS ORDERED: SUVOREXANT 10 MG TABLET PO ONE (21:28)
[2021-02-18] MEDS ORDERED: methaDONE HCL 40 MG DISPERSABLE TABLET ONE (02:16)
[2021-02-18] MEDS ORDERED: methaDONE HCL 10 MG TABLET ONE (02:16)
[2021-02-18] MEDS: methaDONE 80 MG, methaDONE 10 MG PO SCH (06:09)
[2021-02-18] MEDS: METHOCARBAMOL 500 MG TABLET PO PRN ×2 (06:09→21:30)
[2021-02-18] MEDS: TAMSULOSIN HCL 0.4 MG CAP PO SCH (08:00)
[2021-02-18] MEDS: DIVALPROEX SODIUM 500 MG TABLET E.C. PO SCH ×2 (09:32→21:27)
[2021-02-18] MEDS: ESCITALOPRAM OXALATE 20 MG TABLET PO SCH (09:32)
[2021-02-18] MEDS: FERROUS SO4 325 MG TABLET (FP) PO SCH ×2 (09:32→21:27)
[2021-02-18] MEDS: PANTOPRAZOLE 40 MG TABLET PO SCH (09:33)
[2021-02-18] MEDS: levETIRAcetam 500 MG TABLET (FP) PO SCH ×2 (09:33→21:26)
[2021-02-18] MEDS: PRENATAL VITAMINS W/ FOLIC ACID TABLET (FP) PO SCH (09:33)
[2021-02-18] MEDS: hydrOXYzine PAMOATE 50 MG CAPSULE (FP) PO PRN (09:34)
[2021-02-18] MEDS: ALBUTEROL SO4 HFA INHALER IH PRN ×2 (16:58→21:22)
[2021-02-18] MEDS: MAG HYDROX/AL HYDROX/SIMETH 30 ML UNIT-DOSE CUP PO PRN (16:58)
[2021-02-18] MEDS: SUVOREXANT 10 MG TABLET PO PRN (21:25)
[2021-02-18] MEDS: cloNIDine HCL 0.1 MG TABLET PO PRN (21:25)
[2021-02-18] MEDS: DOCUSATE SODIUM 100 MG CAPSULE (FP) PO SCH (21:26)
[2021-02-18] MEDS: THIAMINE HCL 100 MG TABLET (FP) PO SCH (21:28)
[2021-02-19] MEDS ORDERED: methaDONE HCL 10 MG TABLET ONE (04:03)
[2021-02-19] MEDS ORDERED: methaDONE HCL 40 MG DISPERSABLE TABLET ONE (04:03)
[2021-02-19] MEDS: methaDONE 80 MG, methaDONE 10 MG PO SCH (06:03)
[2021-02-19] MEDS: METHOCARBAMOL 500 MG TABLET PO PRN ×2 (06:05→21:33)
[2021-02-19] MEDS: NICOTINE 10 MG CARTRIDGE (INHALER) IH PRN ×2 (08:15→21:37)
[2021-02-19] MEDS: TAMSULOSIN HCL 0.4 MG CAP PO SCH (08:16)
[2021-02-19] MEDS: FERROUS SO4 325 MG TABLET (FP) PO SCH ×2 (09:18→21:33)
[2021-02-19] MEDS: levETIRAcetam 500 MG TABLET (FP) PO SCH ×2 (09:18→21:34)
[2021-02-19] MEDS: ESCITALOPRAM OXALATE 20 MG TABLET PO SCH (09:18)
[2021-02-19] MEDS: DIVALPROEX SODIUM 500 MG TABLET E.C. PO SCH ×2 (09:19→21:35)
[2021-02-19] MEDS: PANTOPRAZOLE 40 MG TABLET PO SCH (09:19)
[2021-02-19] MEDS: ACETAMINOPHEN 325 MG TABLET (FP) PO PRN (09:20)
[2021-02-19] MEDS: PRENATAL VITAMINS W/ FOLIC ACID TABLET (FP) PO SCH (09:20)
[2021-02-19] MEDS: ALBUTEROL SO4 HFA INHALER IH PRN (11:35)
[2021-02-19] MEDS: SUVOREXANT 10 MG TABLET PO PRN (21:33)
[2021-02-19] MEDS: cloNIDine HCL 0.1 MG TABLET PO PRN (21:34)
[2021-02-19] MEDS: DOCUSATE SODIUM 100 MG CAPSULE (FP) PO SCH (21:34)
[2021-02-19] MEDS: THIAMINE HCL 100 MG TABLET (FP) PO SCH (21:35)
[2021-02-20] MEDS: methaDONE 80 MG, methaDONE 10 MG PO SCH (06:19)
[2021-02-20] MEDS ORDERED: methaDONE HCL 10 MG TABLET ONE (06:19)
[2021-02-20] MEDS ORDERED: methaDONE HCL 40 MG DISPERSABLE TABLET ONE (06:19)
[2021-02-20] MEDS: METHOCARBAMOL 500 MG TABLET PO PRN ×2 (06:20→21:07)
[2021-02-20] MEDS: TAMSULOSIN HCL 0.4 MG CAP PO SCH (07:34)
[2021-02-20] MEDS: DIVALPROEX SODIUM 500 MG TABLET E.C. PO SCH ×2 (09:28→21:05)
[2021-02-20] MEDS: PANTOPRAZOLE 40 MG TABLET PO SCH (09:29)
[2021-02-20] MEDS: PRENATAL VITAMINS W/ FOLIC ACID TABLET (FP) PO SCH (09:29)
[2021-02-20] MEDS: ESCITALOPRAM OXALATE 20 MG TABLET PO SCH (09:29)
[2021-02-20] MEDS: levETIRAcetam 500 MG TABLET (FP) PO SCH ×2 (09:29→21:05)
[2021-02-20] MEDS: FERROUS SO4 325 MG TABLET (FP) PO SCH ×2 (09:29→21:05)
[2021-02-20] MEDS: hydrOXYzine PAMOATE 50 MG CAPSULE (FP) PO PRN (09:30)
[2021-02-20] MEDS: DOCUSATE SODIUM 100 MG CAPSULE (FP) PO SCH (21:04)
[2021-02-20] MEDS: THIAMINE HCL 100 MG TABLET (FP) PO SCH (21:05)
[2021-02-20] MEDS: SUVOREXANT 10 MG TABLET PO PRN (21:08)
[2021-02-20] MEDS: cloNIDine HCL 0.1 MG TABLET PO PRN (21:09)
[2021-02-20] MEDS: NICOTINE 10 MG CARTRIDGE (INHALER) IH PRN (22:07)
[2021-02-21] MEDS ORDERED: methaDONE HCL 10 MG TABLET ONE (01:44)
[2021-02-21] MEDS ORDERED: methaDONE HCL 40 MG DISPERSABLE TABLET ONE (01:44)
[2021-02-21] MEDS: methaDONE 80 MG, methaDONE 10 MG PO SCH (06:27)
[2021-02-21] MEDS: METHOCARBAMOL 500 MG TABLET PO PRN (06:27)
[2021-02-21 07:07] VITALS: BP 120/76; PULSE 60; TEMP 97.5
[2021-02-21] MEDS: TAMSULOSIN HCL 0.4 MG CAP PO SCH (07:32)
[2021-02-21] MEDS: FERROUS SO4 325 MG TABLET (FP) PO SCH (09:01)
[2021-02-21] MEDS: levETIRAcetam 500 MG TABLET (FP) PO SCH (09:01)
[2021-02-21] MEDS: PANTOPRAZOLE 40 MG TABLET PO SCH (09:01)
[2021-02-21] MEDS: DIVALPROEX SODIUM 500 MG TABLET E.C. PO SCH (09:02)
[2021-02-21] MEDS: NICOTINE 10 MG CARTRIDGE (INHALER) IH PRN (09:02)
[2021-02-21] MEDS: PRENATAL VITAMINS W/ FOLIC ACID TABLET (FP) PO SCH (09:02)
[2021-02-21] MEDS: ESCITALOPRAM OXALATE 20 MG TABLET PO SCH (09:02)
== END 2021-02-21 09:40 | disposition home or self-care (01) | DRG 772 ==
LOC: YASAS 11:01 → Y3E 11:02
PROVIDERS: ADMIT Allergy & Immunology; ATTEND Allergy & Immunology
PROC: HZ42ZZZ Group Counseling for Substance Abuse Treatment, Cognitive-Behavioral (ICD-10-PCS; principal; 2021-01-23)
DX: F10.20 Alcohol dependence, uncomplicated (principal); F11.20 Opioid dependence, uncomplicated; F14.20 Cocaine dependence, uncomplicated; F13.20 Sedative, hypnotic or anxiolytic dependence, uncomplicated; F17.210 Nicotine dependence, cigarettes, uncomplicated; F41.9 Anxiety disorder, unspecified; F32.A Depression, unspecified; D64.9 Anemia, unspecified; G40.909 Epilepsy, unspecified, not intractable, without status epilepticus; K21.9 Gastro-esophageal reflux disease without esophagitis; R25.1 Tremor, unspecified; R35.0 Frequency of micturition; Z91.51 Personal history of suicidal behavior
CPT/HCPCS: 0013A; 36415; 80164; 80177; 85025; 87086; 90686; 90732; 91301; G0008; G0009; J0735

== ENCOUNTER 2022-02-19 10:21 | Inpatient (IN) | payer OTHER ==
[2022-02-19 11:46] VITALS: BMI 34.6
[2022-02-19] MEDS ORDERED: NALOXONE HCL (KLOXXADO) 8 MG SPRAY NS PRN (12:21)
[2022-02-19] MEDS ORDERED: BISMUTH SUBSALICYLATE 524 MG/30 ML PO PRN (12:21)
[2022-02-19] MEDS ORDERED: DICYCLOMINE HCL 10 MG CAPSULE PO PRN (12:21)
[2022-02-19] MEDS ORDERED: ACETAMINOPHEN 325 MG TABLET (FP) PO PRN ×2 (12:21)
[2022-02-19] MEDS ORDERED: LOPERAMIDE HCL 2 MG CAPSULE PO PRN (12:21)
[2022-02-19] MEDS ORDERED: BENZOCAINE/MENTHOL (CHLORASEPTIC ) LOZENGE MM PRN (12:21)
[2022-02-19] MEDS ORDERED: MAG HYDROX/AL HYDROX/SIMETH 30 ML UNIT-DOSE CUP PO PRN (12:21)
[2022-02-19] MEDS ORDERED: MAGNESIUM HYDROX 2400MG/30ML ORAL SUSPENSION 30 ML CUP PO PRN (12:21)
[2022-02-19] MEDS ORDERED: POLYETHYLENE GLYCOL (HEALTHYLAX) 3350 17 GM PACKET PO PRN (12:21)
[2022-02-19] MEDS: TAMSULOSIN HCL 0.4 MG CAP PO SCH (13:20)
[2022-02-19] MEDS: levETIRAcetam 500 MG TABLET (FP) PO SCH ×2 (13:20→22:05)
[2022-02-19] MEDS: PANTOPRAZOLE 40 MG TABLET PO SCH (13:20)
[2022-02-19] MEDS: DIVALPROEX SODIUM 500 MG TABLET E.C. PO SCH ×2 (13:31→22:05)
[2022-02-19] MEDS: PRENATAL VITAMINS W/ FOLIC ACID TABLET (FP) PO SCH (13:32)
[2022-02-19] MEDS: METHOCARBAMOL 500 MG TABLET PO PRN ×2 (13:37→22:07)
[2022-02-19] MEDS: IBUPROFEN 600 MG TABLET (FP) PO PRN (14:40)
[2022-02-19] MEDS ORDERED: diazePAM 5 MG TABLET PO STA (15:15)
[2022-02-19] MEDS: diazePAM 5 MG TABLET PO SCH ×2 (17:41→22:45)
[2022-02-19] MEDS: ALBUTEROL SO4 HFA INHALER IH PRN (19:10)
[2022-02-19] MEDS: THIAMINE HCL 100 MG TABLET (FP) PO SCH (22:05)
[2022-02-19] MEDS: MELATONIN 5 MG TABLETS PO SCH (22:06)
[2022-02-19] MEDS: NICOTINE POLACRILEX 2 MG GUM BUC PRN (22:08)
[2022-02-20] MEDS: diazePAM 5 MG TABLET PO SCH ×4 (05:39→22:22)
[2022-02-20] MEDS: METHOCARBAMOL 500 MG TABLET PO PRN ×3 (05:39→19:23)
[2022-02-20] MEDS: ONDANSETRON *ODT* 4 MG TABLET SL PRN (05:40)
[2022-02-20] MEDS: NICOTINE POLACRILEX 2 MG GUM BUC PRN (05:41)
[2022-02-20] MEDS: TAMSULOSIN HCL 0.4 MG CAP PO SCH (08:05)
[2022-02-20] MEDS ORDERED: methaDONE HCL 10 MG TABLET PO ONE (08:52)
[2022-02-20] MEDS ORDERED: methaDONE 80 MG, methaDONE 20 MG PO ONE (09:00)
[2022-02-20] MEDS: PRENATAL VITAMINS W/ FOLIC ACID TABLET (FP) PO SCH (09:51)
[2022-02-20] MEDS: levETIRAcetam 500 MG TABLET (FP) PO SCH ×2 (09:53→22:21)
[2022-02-20] MEDS: PANTOPRAZOLE 40 MG TABLET PO SCH (09:53)
[2022-02-20] MEDS: DIVALPROEX SODIUM 500 MG TABLET E.C. PO SCH ×2 (09:54→22:20)
[2022-02-20] MEDS: ESCITALOPRAM OXALATE 20 MG TABLET PO SCH (09:54)
[2022-02-20] MEDS: ALBUTEROL SO4 HFA INHALER IH PRN (10:20)
[2022-02-20 11:51] LABS: HEMOGLOBIN 11.1 GM/dL (11.7-16.9); MCH 22.3 pg (25.7-33.7); MEAN CELL VOLUME 72.1 fl (80-96); MEAN PLT VOLUME 10.6 fl (7.5-11.1); PLATELET COUNT 254 10^3/uL (134-434); RBC 4.99 M/mm3 (4.00-5.60); RDW 18.4 % (11.9-15.9); WHITE BLOOD COUNT 5.3 K/mm3 (4.0-10.0)
[2022-02-20 11:55] LABS: CALCIUM 9.2 mg/dL (8.5-10.1)
[2022-02-20 11:56] LABS: ALBUMIN 3.5 g/dl (3.4-5.0); BLOOD UREA NITROGEN 14.1 mg/dL (7-18)
[2022-02-20] MEDS: IBUPROFEN 600 MG TABLET (FP) PO PRN (11:58)
[2022-02-20 11:59] LABS: CREATININE 0.7 mg/dL (0.55-1.3)
[2022-02-20 12:00] LABS: BILIRUBIN,TOTAL 0.5 mg/dL (0.2-1)
[2022-02-20 12:01] LABS: TOT PROT 7.4 g/dl (6.4-8.2)
[2022-02-20] MEDS: NICOTINE 10 MG CARTRIDGE (INHALER) IH PRN (20:23)
[2022-02-20] MEDS: THIAMINE HCL 100 MG TABLET (FP) PO SCH (22:21)
[2022-02-20] MEDS: MELATONIN 5 MG TABLETS PO SCH (22:21)
[2022-02-21] MEDS: methaDONE 80 MG, methaDONE 20 MG PO SCH (05:22)
[2022-02-21] MEDS: diazePAM 5 MG TABLET PO SCH ×3 (05:23→22:02)
[2022-02-21] MEDS: METHOCARBAMOL 500 MG TABLET PO PRN ×2 (05:26→17:54)
[2022-02-21] MEDS: NICOTINE 10 MG CARTRIDGE (INHALER) IH PRN ×3 (05:29→22:05)
[2022-02-21] MEDS ORDERED: methaDONE HCL 10 MG TABLET PO SCH (06:00)
[2022-02-21] MEDS: DIVALPROEX SODIUM 500 MG TABLET E.C. PO SCH ×2 (09:19→22:02)
[2022-02-21] MEDS: levETIRAcetam 500 MG TABLET (FP) PO SCH ×2 (09:19→22:02)
[2022-02-21] MEDS: PRENATAL VITAMINS W/ FOLIC ACID TABLET (FP) PO SCH (09:19)
[2022-02-21] MEDS: TAMSULOSIN HCL 0.4 MG CAP PO SCH (09:19)
[2022-02-21] MEDS: PANTOPRAZOLE 40 MG TABLET PO SCH (09:19)
[2022-02-21] MEDS: ESCITALOPRAM OXALATE 20 MG TABLET PO SCH (09:19)
[2022-02-21] MEDS: NICOTINE POLACRILEX 2 MG GUM BUC PRN (09:58)
[2022-02-21] MEDS ORDERED: diazePAM 5 MG TABLET PO ONE (11:00)
[2022-02-21] MEDS: IBUPROFEN 600 MG TABLET (FP) PO PRN (14:03)
[2022-02-21] MEDS: IBUPROFEN 400 MG TABLET (FP) PO PRN (17:54)
[2022-02-21] MEDS: ALBUTEROL SO4 HFA INHALER IH PRN (22:01)
[2022-02-21] MEDS: THIAMINE HCL 100 MG TABLET (FP) PO SCH (22:01)
[2022-02-21] MEDS: MELATONIN 5 MG TABLETS PO SCH (22:03)
[2022-02-22] MEDS: methaDONE 80 MG, methaDONE 20 MG PO SCH (05:50)
[2022-02-22] MEDS: diazePAM 5 MG TABLET PO SCH ×2 (05:50→17:31)
[2022-02-22] MEDS: METHOCARBAMOL 500 MG TABLET PO PRN ×2 (05:50→17:34)
[2022-02-22] MEDS: NICOTINE POLACRILEX 2 MG GUM BUC PRN ×3 (06:19→22:50)
[2022-02-22] MEDS: ALBUTEROL SO4 HFA INHALER IH PRN (09:56)
[2022-02-22] MEDS: ESCITALOPRAM OXALATE 20 MG TABLET PO SCH (09:56)
[2022-02-22] MEDS: levETIRAcetam 500 MG TABLET (FP) PO SCH ×2 (09:56→22:50)
[2022-02-22] MEDS: PANTOPRAZOLE 40 MG TABLET PO SCH (09:56)
[2022-02-22] MEDS: TAMSULOSIN HCL 0.4 MG CAP PO SCH (09:56)
[2022-02-22] MEDS: DIVALPROEX SODIUM 500 MG TABLET E.C. PO SCH ×2 (09:56→22:49)
[2022-02-22] MEDS: PRENATAL VITAMINS W/ FOLIC ACID TABLET (FP) PO SCH (09:56)
[2022-02-22] MEDS: NICOTINE 10 MG CARTRIDGE (INHALER) IH PRN (09:57)
[2022-02-22] MEDS: ONDANSETRON *ODT* 4 MG TABLET SL PRN (16:30)
[2022-02-22] MEDS: IBUPROFEN 400 MG TABLET (FP) PO PRN (17:34)
[2022-02-22] MEDS: MELATONIN 5 MG TABLETS PO SCH (22:50)
[2022-02-22] MEDS: THIAMINE HCL 100 MG TABLET (FP) PO SCH (22:50)
[2022-02-22] MEDS: hydrOXYzine PAMOATE 25 MG CAPSULE (FP) PO PRN (22:52)
[2022-02-23] MEDS: methaDONE 80 MG, methaDONE 20 MG PO SCH (05:36)
[2022-02-23] MEDS: NICOTINE 10 MG CARTRIDGE (INHALER) IH PRN ×2 (05:42→10:28)
[2022-02-23] MEDS ORDERED: diazePAM 5 MG TABLET PO ONE (06:00)
[2022-02-23] MEDS: IBUPROFEN 600 MG TABLET (FP) PO PRN (08:35)
[2022-02-23] MEDS: METHOCARBAMOL 500 MG TABLET PO PRN (08:35)
[2022-02-23] MEDS: TAMSULOSIN HCL 0.4 MG CAP PO SCH (08:36)
[2022-02-23] MEDS: NICOTINE POLACRILEX 2 MG GUM BUC PRN ×2 (08:37→12:31)
[2022-02-23 09:51] VITALS: RESP 17; TEMP 97.5
[2022-02-23] MEDS: ALBUTEROL SO4 HFA INHALER IH PRN (10:28)
[2022-02-23] MEDS: ESCITALOPRAM OXALATE 20 MG TABLET PO SCH (10:29)
[2022-02-23] MEDS: PANTOPRAZOLE 40 MG TABLET PO SCH (10:29)
[2022-02-23] MEDS: PRENATAL VITAMINS W/ FOLIC ACID TABLET (FP) PO SCH (10:29)
[2022-02-23] MEDS: levETIRAcetam 500 MG TABLET (FP) PO SCH (10:29)
[2022-02-23] MEDS: hydrOXYzine PAMOATE 25 MG CAPSULE (FP) PO PRN (10:30)
[2022-02-23] MEDS: DIVALPROEX SODIUM 500 MG TABLET E.C. PO SCH (10:30)
[2022-02-23 13:17] VITALS: BP 118/75; PULSE 78
== END 2022-02-23 14:30 | disposition other institution (70) | DRG 774 ==
LOC: YASAS 10:21 → Y6N 12:49
PROVIDERS: ADMIT Allergy & Immunology; ATTEND Surgery
PROC: HZ2ZZZZ Detoxification Services for Substance Abuse Treatment (ICD-10-PCS; principal; 2022-02-19)
DX: F10.230 Alcohol dependence with withdrawal, uncomplicated (principal); F14.20 Cocaine dependence, uncomplicated; F12.20 Cannabis dependence, uncomplicated; F17.210 Nicotine dependence, cigarettes, uncomplicated; F33.1 Major depressive disorder, recurrent, moderate; F19.280 Other psychoactive substance dependence with psychoactive substance-induced anxiety disorder; F19.282 Other psychoactive substance dependence with psychoactive substance-induced sleep disorder; G40.909 Epilepsy, unspecified, not intractable, without status epilepticus; I10 Essential (primary) hypertension; J45.909 Unspecified asthma, uncomplicated; K21.9 Gastro-esophageal reflux disease without esophagitis; N40.0 Benign prostatic hyperplasia without lower urinary tract symptoms; Z88.0 Allergy status to penicillin
CPT/HCPCS: 36415; 80053; 80164; 80177; 85027; 86780; C9803-CS; Q0162; U0003; U0005

== ENCOUNTER 2022-02-23 14:41 | Inpatient (IN) | payer OTHER ==
[2022-02-23] MEDS ORDERED: MAGNESIUM HYDROX 2400MG/30ML ORAL SUSPENSION 30 ML CUP PO PRN (15:57)
[2022-02-23] MEDS ORDERED: P-EPHED 60MG/TRIPROLIDI 2.5MG TABLET PO PRN (15:57)
[2022-02-23] MEDS ORDERED: POLYETHYLENE GLYCOL (HEALTHYLAX) 3350 17 GM PACKET PO PRN (15:57)
[2022-02-23] MEDS ORDERED: guaiFENesin 200 MG/10 ML 10 ML UNIT-DOSE CUPS PO PRN (15:57)
[2022-02-23] MEDS ORDERED: BENZOCAINE/MENTHOL (CHLORASEPTIC ) LOZENGE MM PRN (15:57)
[2022-02-23] MEDS ORDERED: LOPERAMIDE HCL 2 MG CAPSULE PO PRN (15:57)
[2022-02-23] MEDS ORDERED: ALBUTEROL SO4 HFA INHALER IH PRN (15:58)
[2022-02-23] MEDS: IBUPROFEN 400 MG TABLET (FP) PO PRN (17:44)
[2022-02-23] MEDS: NICOTINE 10 MG CARTRIDGE (INHALER) IH PRN (17:45)
[2022-02-23] MEDS: MELATONIN 5 MG TABLETS PO SCH (21:18)
[2022-02-23] MEDS: THIAMINE HCL 100 MG TABLET (FP) PO SCH (21:18)
[2022-02-23] MEDS: levETIRAcetam 500 MG TABLET (FP) PO SCH (21:18)
[2022-02-23] MEDS: hydrOXYzine PAMOATE 25 MG CAPSULE (FP) PO PRN (21:19)
[2022-02-23] MEDS: DIVALPROEX SODIUM 500 MG TABLET E.C. PO SCH (21:19)
[2022-02-23] MEDS: NICOTINE POLACRILEX 2 MG GUM BUC PRN (21:20)
[2022-02-24] MEDS ORDERED: methaDONE HCL 10 MG TABLET PO SCH (06:00)
[2022-02-24] MEDS: methaDONE 80 MG, methaDONE 20 MG PO SCH (06:58)
[2022-02-24] MEDS: TAMSULOSIN HCL 0.4 MG CAP PO SCH (07:45)
[2022-02-24] MEDS: NICOTINE 10 MG CARTRIDGE (INHALER) IH PRN ×2 (08:20→18:53)
[2022-02-24] MEDS: hydrOXYzine PAMOATE 25 MG CAPSULE (FP) PO PRN ×2 (08:21→18:52)
[2022-02-24] MEDS: DIVALPROEX SODIUM 500 MG TABLET E.C. PO SCH ×2 (09:27→21:26)
[2022-02-24] MEDS: PANTOPRAZOLE 40 MG TABLET PO SCH (09:27)
[2022-02-24] MEDS: levETIRAcetam 500 MG TABLET (FP) PO SCH ×2 (09:27→21:25)
[2022-02-24] MEDS: ESCITALOPRAM OXALATE 20 MG TABLET PO SCH (09:27)
[2022-02-24] MEDS: PRENATAL VITAMINS W/ FOLIC ACID TABLET (FP) PO SCH (09:27)
[2022-02-24] MEDS: NICOTINE POLACRILEX 2 MG GUM BUC PRN ×2 (09:28→21:27)
[2022-02-24] MEDS: ACETAMINOPHEN 325 MG TABLET (FP) PO PRN ×2 (09:29→22:22)
[2022-02-24 12:35] LABS: HIV INTERPRETATION NEGATIVE (NEGATIVE)
[2022-02-24] MEDS: clonazePAM 0.5 MG ODT TABLETS SL PRN ×2 (14:18→22:23)
[2022-02-24] MEDS: IBUPROFEN 400 MG TABLET (FP) PO PRN (18:51)
[2022-02-24] MEDS: MELATONIN 5 MG TABLETS PO SCH (21:25)
[2022-02-24] MEDS: THIAMINE HCL 100 MG TABLET (FP) PO SCH (21:26)
[2022-02-25] MEDS: clonazePAM 0.5 MG ODT TABLETS SL PRN ×3 (06:33→22:41)
[2022-02-25] MEDS: methaDONE 80 MG, methaDONE 20 MG PO SCH (06:33)
[2022-02-25 07:11] VITALS: RESP 18
[2022-02-25] MEDS: NICOTINE 10 MG CARTRIDGE (INHALER) IH PRN ×3 (07:58→21:25)
[2022-02-25] MEDS: PRENATAL VITAMINS W/ FOLIC ACID TABLET (FP) PO SCH (09:38)
[2022-02-25] MEDS: TAMSULOSIN HCL 0.4 MG CAP PO SCH (09:39)
[2022-02-25] MEDS: ESCITALOPRAM OXALATE 20 MG TABLET PO SCH (09:39)
[2022-02-25] MEDS: PANTOPRAZOLE 40 MG TABLET PO SCH (09:39)
[2022-02-25] MEDS: levETIRAcetam 500 MG TABLET (FP) PO SCH ×2 (09:39→21:24)
[2022-02-25] MEDS: DIVALPROEX SODIUM 500 MG TABLET E.C. PO SCH ×2 (09:40→21:24)
[2022-02-25] MEDS: NICOTINE POLACRILEX 2 MG GUM BUC PRN (09:42)
[2022-02-25] MEDS: MAG HYDROX/AL HYDROX/SIMETH 30 ML UNIT-DOSE CUP PO PRN (11:44)
[2022-02-25] MEDS: SUVOREXANT 10 MG TABLET PO PRN (21:23)
[2022-02-25] MEDS: THIAMINE HCL 100 MG TABLET (FP) PO SCH (21:24)
[2022-02-25] MEDS: IBUPROFEN 400 MG TABLET (FP) PO PRN (22:40)
[2022-02-26] MEDS: clonazePAM 0.5 MG ODT TABLETS SL PRN ×3 (06:27→21:28)
[2022-02-26] MEDS: methaDONE 80 MG, methaDONE 20 MG PO SCH (06:27)
[2022-02-26] MEDS: NICOTINE 10 MG CARTRIDGE (INHALER) IH PRN ×2 (06:28→14:01)
[2022-02-26] MEDS: TAMSULOSIN HCL 0.4 MG CAP PO SCH (07:35)
[2022-02-26] MEDS: levETIRAcetam 500 MG TABLET (FP) PO SCH ×2 (09:41→21:28)
[2022-02-26] MEDS: DIVALPROEX SODIUM 500 MG TABLET E.C. PO SCH ×2 (09:41→21:28)
[2022-02-26] MEDS: ESCITALOPRAM OXALATE 20 MG TABLET PO SCH (09:41)
[2022-02-26] MEDS: PANTOPRAZOLE 40 MG TABLET PO SCH (09:42)
[2022-02-26] MEDS: PRENATAL VITAMINS W/ FOLIC ACID TABLET (FP) PO SCH (09:42)
[2022-02-26] MEDS: hydrOXYzine PAMOATE 50 MG CAPSULE (FP) PO PRN ×2 (09:43→17:06)
[2022-02-26] MEDS: NICOTINE POLACRILEX 2 MG GUM BUC PRN (09:44)
[2022-02-26] MEDS: MAG HYDROX/AL HYDROX/SIMETH 30 ML UNIT-DOSE CUP PO PRN (11:41)
[2022-02-26] MEDS: SUVOREXANT 10 MG TABLET PO PRN (21:27)
[2022-02-26] MEDS: THIAMINE HCL 100 MG TABLET (FP) PO SCH (21:28)
[2022-02-27] MEDS: methaDONE 80 MG, methaDONE 20 MG PO SCH (06:30)
[2022-02-27] MEDS: clonazePAM 0.5 MG ODT TABLETS SL PRN ×3 (06:30→21:25)
[2022-02-27] MEDS: DIVALPROEX SODIUM 500 MG TABLET E.C. PO SCH ×2 (09:28→21:23)
[2022-02-27] MEDS: TAMSULOSIN HCL 0.4 MG CAP PO SCH (09:28)
[2022-02-27] MEDS: PANTOPRAZOLE 40 MG TABLET PO SCH (09:28)
[2022-02-27] MEDS: PRENATAL VITAMINS W/ FOLIC ACID TABLET (FP) PO SCH (09:29)
[2022-02-27] MEDS: ESCITALOPRAM OXALATE 20 MG TABLET PO SCH (09:29)
[2022-02-27] MEDS: levETIRAcetam 500 MG TABLET (FP) PO SCH ×2 (09:29→21:23)
[2022-02-27] MEDS: NICOTINE 10 MG CARTRIDGE (INHALER) IH PRN ×2 (09:30→14:31)
[2022-02-27] MEDS: hydrOXYzine PAMOATE 50 MG CAPSULE (FP) PO PRN ×2 (11:22→22:53)
[2022-02-27] MEDS: NICOTINE POLACRILEX 2 MG GUM BUC PRN ×2 (11:22→22:53)
[2022-02-27] MEDS: THIAMINE HCL 100 MG TABLET (FP) PO SCH (21:23)
[2022-02-27] MEDS: SUVOREXANT 10 MG TABLET PO PRN (21:25)
[2022-02-27] MEDS ORDERED: SUVOREXANT 10 MG TABLET PO PRN (22:00)
[2022-02-28] MEDS: methaDONE 80 MG, methaDONE 20 MG PO SCH (06:54)
[2022-02-28] MEDS: hydrOXYzine PAMOATE 50 MG CAPSULE (FP) PO PRN (07:01)
[2022-02-28] MEDS: clonazePAM 0.5 MG ODT TABLETS SL PRN ×2 (07:02→15:03)
[2022-02-28 10:03] VITALS: BP 109/76; PULSE 72; TEMP 97.7
[2022-02-28] MEDS: TAMSULOSIN HCL 0.4 MG CAP PO SCH (10:06)
[2022-02-28] MEDS: levETIRAcetam 500 MG TABLET (FP) PO SCH (10:06)
[2022-02-28] MEDS: PANTOPRAZOLE 40 MG TABLET PO SCH (10:07)
[2022-02-28] MEDS: PRENATAL VITAMINS W/ FOLIC ACID TABLET (FP) PO SCH (10:07)
[2022-02-28] MEDS: ESCITALOPRAM OXALATE 20 MG TABLET PO SCH (10:07)
[2022-02-28] MEDS: DIVALPROEX SODIUM 500 MG TABLET E.C. PO SCH (10:07)
[2022-02-28] MEDS ORDERED: COLLOIDAL OATMEAL 1 BAR EACH TP PRN (10:17)
[2022-02-28] MEDS ORDERED: SUVOREXANT 10 MG TABLET PO PRN (22:00)
== END 2022-02-28 16:05 | disposition home or self-care (01) | DRG 772 ==
LOC: YASAS 14:41 → Y5N 14:43
PROVIDERS: ADMIT Allergy & Immunology; ATTEND Psychiatry & Neurology Pain Medicine
PROC: HZ42ZZZ Group Counseling for Substance Abuse Treatment, Cognitive-Behavioral (ICD-10-PCS; principal; 2022-02-23)
DX: F10.20 Alcohol dependence, uncomplicated (principal); F11.20 Opioid dependence, uncomplicated; F13.20 Sedative, hypnotic or anxiolytic dependence, uncomplicated; F14.20 Cocaine dependence, uncomplicated; F12.20 Cannabis dependence, uncomplicated; F17.210 Nicotine dependence, cigarettes, uncomplicated; F19.282 Other psychoactive substance dependence with psychoactive substance-induced sleep disorder; F19.280 Other psychoactive substance dependence with psychoactive substance-induced anxiety disorder; F33.1 Major depressive disorder, recurrent, moderate; F41.8 Other specified anxiety disorders; U07.1 COVID-19; G40.909 Epilepsy, unspecified, not intractable, without status epilepticus; I10 Essential (primary) hypertension; J45.909 Unspecified asthma, uncomplicated; K21.9 Gastro-esophageal reflux disease without esophagitis
CPT/HCPCS: 36415; 87389; C9803-CS; U0003; U0005

== ENCOUNTER 2022-04-06 13:52 | Inpatient (IN) | payer OTHER ==
[2022-04-06 14:41] VITALS: BMI 31.9
[2022-04-06] MEDS ORDERED: ONDANSETRON *ODT* 4 MG TABLET SL PRN (18:10)
[2022-04-06] MEDS ORDERED: MAG HYDROX/AL HYDROX/SIMETH 30 ML UNIT-DOSE CUP PO PRN (18:10)
[2022-04-06] MEDS ORDERED: IBUPROFEN 400 MG TABLET (FP) PO PRN (18:10)
[2022-04-06] MEDS ORDERED: MAGNESIUM HYDROX 2400MG/30ML ORAL SUSPENSION 30 ML CUP PO PRN (18:10)
[2022-04-06] MEDS ORDERED: NALOXONE HCL (KLOXXADO) 8 MG SPRAY NS PRN (18:10)
[2022-04-06] MEDS ORDERED: DICYCLOMINE HCL 10 MG CAPSULE PO PRN (18:10)
[2022-04-06] MEDS ORDERED: LOPERAMIDE HCL 2 MG CAPSULE PO PRN (18:10)
[2022-04-06] MEDS ORDERED: POLYETHYLENE GLYCOL (HEALTHYLAX) 3350 17 GM PACKET PO PRN (18:10)
[2022-04-06] MEDS ORDERED: ACETAMINOPHEN 325 MG TABLET (FP) PO PRN (18:10)
[2022-04-06] MEDS ORDERED: BENZOCAINE/MENTHOL (CHLORASEPTIC ) LOZENGE MM PRN (18:10)
[2022-04-06] MEDS ORDERED: BISMUTH SUBSALICYLATE 524 MG/30 ML PO PRN (18:10)
[2022-04-06] MEDS: LORazepam 1 MG TABLET PO PRN (19:31)
[2022-04-06] MEDS: IBUPROFEN 600 MG TABLET (FP) PO PRN (19:32)
[2022-04-06] MEDS: NICOTINE 10 MG CARTRIDGE (INHALER) IH PRN (20:13)
[2022-04-06] MEDS: THIAMINE HCL 100 MG TABLET (FP) PO SCH (22:21)
[2022-04-06] MEDS: LORazepam 2 MG TABLET PO SCH (22:21)
[2022-04-06] MEDS: MELATONIN 5 MG TABLETS PO SCH (22:22)
[2022-04-06] MEDS: DIVALPROEX SODIUM 500 MG TABLET E.C. PO SCH (23:53)
[2022-04-06] MEDS: levETIRAcetam 500 MG TABLET (FP) PO SCH (23:54)
[2022-04-07] MEDS: NICOTINE POLACRILEX 2 MG GUM BUC PRN (05:32)
[2022-04-07] MEDS: LORazepam 2 MG TABLET PO SCH ×4 (05:32→22:11)
[2022-04-07] MEDS: METHOCARBAMOL 500 MG TABLET PO PRN (07:15)
[2022-04-07] MEDS: ALBUTEROL SO4 HFA INHALER IH PRN ×2 (07:16→23:03)
[2022-04-07] MEDS: NICOTINE 10 MG CARTRIDGE (INHALER) IH PRN ×2 (07:19→13:36)
[2022-04-07] MEDS: PANTOPRAZOLE 40 MG TABLET PO SCH (10:08)
[2022-04-07] MEDS: levETIRAcetam 500 MG TABLET (FP) PO SCH ×2 (10:09→22:10)
[2022-04-07] MEDS: PRENATAL VITAMINS W/ FOLIC ACID TABLET (FP) PO SCH (10:10)
[2022-04-07] MEDS: ACETAMINOPHEN 325 MG TABLET (FP) PO PRN (10:11)
[2022-04-07 10:27] LABS: HEMATOCRIT 35.7 % (35.4-49); HEMOGLOBIN 11.6 GM/dL (11.7-16.9); MCH 24.8 pg (25.7-33.7); MCHC 32.4 g/dl (32.0-35.9); MEAN CELL VOLUME 76.4 fl (80-96); MEAN PLT VOLUME 10.2 fl (7.5-11.1); PLATELET COUNT 193 10^3/uL (134-434); RBC 4.67 M/mm3 (4.00-5.60); RDW 21.2 % (11.9-15.9); WHITE BLOOD COUNT 7.1 K/mm3 (4.0-10.0)
[2022-04-07 11:00] LABS: ALBUMIN 3.4 g/dl (3.4-5.0); BLOOD UREA NITROGEN 32.3 mg/dL (7-18)
[2022-04-07 11:01] LABS: CREATININE 0.9 mg/dL (0.55-1.3)
[2022-04-07 11:03] LABS: BILIRUBIN,TOTAL 0.6 mg/dL (0.2-1)
[2022-04-07] MEDS: DIVALPROEX SODIUM 500 MG TABLET E.C. PO SCH ×2 (11:23→22:10)
[2022-04-07] MEDS: methaDONE HCL 40 MG DISPERSABLE TABLET PO SCH (11:24)
[2022-04-07] MEDS: hydrOXYzine PAMOATE 25 MG CAPSULE (FP) PO PRN (14:15)
[2022-04-07] MEDS: MELATONIN 5 MG TABLETS PO SCH (22:10)
[2022-04-07] MEDS: THIAMINE HCL 100 MG TABLET (FP) PO SCH (22:10)
[2022-04-08] MEDS: LORazepam 1 MG TABLET PO PRN ×2 (00:57→14:41)
[2022-04-08] MEDS: METHOCARBAMOL 500 MG TABLET PO PRN ×3 (00:57→22:21)
[2022-04-08] MEDS: methaDONE HCL 40 MG DISPERSABLE TABLET PO SCH (05:32)
[2022-04-08] MEDS: LORazepam 1 MG TABLET PO SCH ×4 (05:33→22:23)
[2022-04-08] MEDS: ACETAMINOPHEN 325 MG TABLET (FP) PO PRN ×2 (05:36→14:41)
[2022-04-08] MEDS: NICOTINE 10 MG CARTRIDGE (INHALER) IH PRN ×2 (06:18→07:45)
[2022-04-08] MEDS: PRENATAL VITAMINS W/ FOLIC ACID TABLET (FP) PO SCH (10:02)
[2022-04-08] MEDS: levETIRAcetam 500 MG TABLET (FP) PO SCH ×2 (10:04→22:20)
[2022-04-08] MEDS: PANTOPRAZOLE 40 MG TABLET PO SCH (10:04)
[2022-04-08] MEDS: ESCITALOPRAM OXALATE 20 MG TABLET PO SCH (10:05)
[2022-04-08] MEDS: DIVALPROEX SODIUM 500 MG TABLET E.C. PO SCH ×2 (10:05→22:20)
[2022-04-08] MEDS: NICOTINE POLACRILEX 2 MG GUM BUC PRN (10:06)
[2022-04-08] MEDS: hydrOXYzine PAMOATE 25 MG CAPSULE (FP) PO PRN (17:29)
[2022-04-08] MEDS: THIAMINE HCL 100 MG TABLET (FP) PO SCH (22:20)
[2022-04-08] MEDS: MELATONIN 5 MG TABLETS PO SCH (22:20)
[2022-04-09] MEDS ORDERED: LORazepam 0.5 MG TABLET PO PRN
[2022-04-09] MEDS: METHOCARBAMOL 500 MG TABLET PO PRN ×2 (04:22→17:16)
[2022-04-09] MEDS: NICOTINE 10 MG CARTRIDGE (INHALER) IH PRN ×2 (04:22→22:16)
[2022-04-09] MEDS: methaDONE HCL 40 MG DISPERSABLE TABLET PO SCH (05:29)
[2022-04-09] MEDS: LORazepam 0.5 MG TABLET PO SCH ×4 (05:29→22:13)
[2022-04-09] MEDS ORDERED: levETIRAcetam 250 MG TABLET PO ONE (09:33)
[2022-04-09] MEDS: ESCITALOPRAM OXALATE 20 MG TABLET PO SCH (10:08)
[2022-04-09] MEDS: PRENATAL VITAMINS W/ FOLIC ACID TABLET (FP) PO SCH (10:08)
[2022-04-09] MEDS: DIVALPROEX SODIUM 500 MG TABLET E.C. PO SCH ×2 (10:08→22:11)
[2022-04-09] MEDS: PANTOPRAZOLE 40 MG TABLET PO SCH (10:08)
[2022-04-09] MEDS: hydrOXYzine PAMOATE 25 MG CAPSULE (FP) PO PRN (10:09)
[2022-04-09] MEDS: levETIRAcetam 500 MG TABLET (FP) PO SCH ×2 (10:11→22:10)
[2022-04-09] MEDS: IBUPROFEN 600 MG TABLET (FP) PO PRN (13:01)
[2022-04-09] MEDS: NICOTINE POLACRILEX 2 MG GUM BUC PRN ×2 (20:02→22:16)
[2022-04-09] MEDS: THIAMINE HCL 100 MG TABLET (FP) PO SCH (22:10)
[2022-04-09] MEDS: SUVOREXANT 10 MG TABLET PO PRN (22:12)
[2022-04-10] MEDS ORDERED: LORazepam 0.5 MG TABLET PO ONE (05:00)
[2022-04-10] MEDS: methaDONE HCL 40 MG DISPERSABLE TABLET PO SCH (05:44)
[2022-04-10] MEDS: METHOCARBAMOL 500 MG TABLET PO PRN ×2 (05:46→17:52)
[2022-04-10] MEDS: NICOTINE 10 MG CARTRIDGE (INHALER) IH PRN ×3 (06:00→22:13)
[2022-04-10] MEDS: NICOTINE POLACRILEX 2 MG GUM BUC PRN ×2 (07:39→22:14)
[2022-04-10] MEDS: hydrOXYzine PAMOATE 25 MG CAPSULE (FP) PO PRN ×2 (07:39→17:52)
[2022-04-10] MEDS: levETIRAcetam 500 MG TABLET (FP) PO SCH ×2 (09:20→22:12)
[2022-04-10] MEDS: PRENATAL VITAMINS W/ FOLIC ACID TABLET (FP) PO SCH (09:20)
[2022-04-10] MEDS: PANTOPRAZOLE 40 MG TABLET PO SCH (09:20)
[2022-04-10] MEDS: ESCITALOPRAM OXALATE 20 MG TABLET PO SCH (09:20)
[2022-04-10] MEDS: DIVALPROEX SODIUM 500 MG TABLET E.C. PO SCH ×2 (09:20→22:12)
[2022-04-10 12:49] VITALS: RESP 18
[2022-04-10] MEDS: SUVOREXANT 10 MG TABLET PO PRN (22:11)
[2022-04-10] MEDS: THIAMINE HCL 100 MG TABLET (FP) PO SCH (22:12)
[2022-04-11] MEDS: ACETAMINOPHEN 325 MG TABLET (FP) PO PRN (05:33)
[2022-04-11] MEDS: methaDONE HCL 40 MG DISPERSABLE TABLET PO SCH (05:33)
[2022-04-11] MEDS: IBUPROFEN 600 MG TABLET (FP) PO PRN (07:47)
[2022-04-11] MEDS: METHOCARBAMOL 500 MG TABLET PO PRN (07:47)
[2022-04-11] MEDS: ALBUTEROL SO4 HFA INHALER IH PRN (07:48)
[2022-04-11] MEDS: DIVALPROEX SODIUM 500 MG TABLET E.C. PO SCH (09:06)
[2022-04-11] MEDS: PRENATAL VITAMINS W/ FOLIC ACID TABLET (FP) PO SCH (09:06)
[2022-04-11] MEDS: PANTOPRAZOLE 40 MG TABLET PO SCH (09:07)
[2022-04-11] MEDS: NICOTINE POLACRILEX 2 MG GUM BUC PRN (09:07)
[2022-04-11] MEDS: ESCITALOPRAM OXALATE 20 MG TABLET PO SCH (09:07)
[2022-04-11] MEDS: levETIRAcetam 500 MG TABLET (FP) PO SCH (09:07)
[2022-04-11 09:34] VITALS: BP 126/77; PULSE 70; TEMP 98
== END 2022-04-11 12:57 | disposition home or self-care (01) | DRG 774 ==
LOC: YASAS 13:52 → Y6N 18:32
PROVIDERS: ADMIT Allergy & Immunology; ATTEND Surgery
PROC: HZ2ZZZZ Detoxification Services for Substance Abuse Treatment (ICD-10-PCS; principal; 2022-04-06)
DX: F10.230 Alcohol dependence with withdrawal, uncomplicated (principal); F13.230 Sedative, hypnotic or anxiolytic dependence with withdrawal, uncomplicated; F14.20 Cocaine dependence, uncomplicated; I10 Essential (primary) hypertension; F17.210 Nicotine dependence, cigarettes, uncomplicated; F33.41 Major depressive disorder, recurrent, in partial remission; F19.24 Other psychoactive substance dependence with psychoactive substance-induced mood disorder; F41.9 Anxiety disorder, unspecified; D50.9 Iron deficiency anemia, unspecified; J45.909 Unspecified asthma, uncomplicated; G40.909 Epilepsy, unspecified, not intractable, without status epilepticus; N40.0 Benign prostatic hyperplasia without lower urinary tract symptoms; Z91.51 Personal history of suicidal behavior
CPT/HCPCS: 36415; 80053; 84520; 85027; 86780; 86803; 87522; 87811; C9803-CS; U0003; U0005

== ENCOUNTER 2022-06-12 11:43 | Inpatient (IN) | payer OTHER ==
[2022-06-12 12:28] VITALS: BMI 33.5
[2022-06-12] MEDS ORDERED: MAGNESIUM HYDROX 2400MG/30ML ORAL SUSPENSION 30 ML CUP PO PRN (13:36)
[2022-06-12] MEDS ORDERED: guaiFENesin 600 MG TABLET.ER (FP) PO PRN (13:36)
[2022-06-12] MEDS ORDERED: MAG HYDROX/AL HYDROX/SIMETH 30 ML UNIT-DOSE CUP PO PRN (13:36)
[2022-06-12] MEDS ORDERED: LOPERAMIDE HCL 2 MG CAPSULE PO PRN (13:36)
[2022-06-12] MEDS ORDERED: NICOTINE 10 MG CARTRIDGE (INHALER) IH PRN (13:36)
[2022-06-12] MEDS ORDERED: BISMUTH SUBSALICYLATE 524 MG/30 ML PO PRN (13:36)
[2022-06-12] MEDS ORDERED: BENZOCAINE/MENTHOL (CHLORASEPTIC ) LOZENGE MM PRN (13:36)
[2022-06-12] MEDS ORDERED: DICYCLOMINE HCL 10 MG CAPSULE PO PRN (13:36)
[2022-06-12] MEDS ORDERED: ONDANSETRON *ODT* 4 MG TABLET SL PRN (13:36)
[2022-06-12] MEDS ORDERED: NALOXONE HCL 0.4 MG/ML VIAL IM PRN (13:36)
[2022-06-12] MEDS ORDERED: POLYETHYLENE GLYCOL (HEALTHYLAX) 3350 17 GM PACKET PO PRN (13:36)
[2022-06-12] MEDS ORDERED: BENZONATATE 200 MG CAPSULE PO PRN (13:36)
[2022-06-12] MEDS ORDERED: NALOXONE HCL (KLOXXADO) 8 MG SPRAY NS PRN (13:36)
[2022-06-12] MEDS ORDERED: ACETAMINOPHEN 325 MG TABLET (FP) PO PRN (13:36)
[2022-06-12] MEDS ORDERED: METHOCARBAMOL 500 MG TABLET ONE (14:17)
[2022-06-12] MEDS ORDERED: LORazepam 1 MG TABLET ONE (14:18)
[2022-06-12] MEDS: LORazepam 1 MG TABLET PO PRN ×2 (14:19→20:20)
[2022-06-12] MEDS: METHOCARBAMOL 500 MG TABLET PO PRN ×2 (14:19→22:26)
[2022-06-12] MEDS: PRENATAL VITAMINS W/ FOLIC ACID TABLET (FP) PO SCH (14:20)
[2022-06-12] MEDS: NICOTINE 14 MG/24 HOURS TOPICAL PATCH TD SCH (14:20)
[2022-06-12] MEDS ORDERED: NICOTINE 14 MG/24 HOURS TOPICAL PATCH TD ONE (14:21)
[2022-06-12] MEDS: hydrOXYzine PAMOATE 25 MG CAPSULE (FP) PO PRN ×2 (15:41→18:05)
[2022-06-12] MEDS: LORazepam 2 MG TABLET PO SCH ×2 (17:58→22:24)
[2022-06-12 18:04] LABS: POTASSIUM 4.1 mmol/L (3.5-5.1)
[2022-06-12 18:08] LABS: HEMATOCRIT 35.6 % (35.4-49); HEMOGLOBIN 12.1 GM/dL (11.7-16.9); MCH 28.2 pg (25.7-33.7); MEAN CELL VOLUME 82.7 fl (80-96); PLATELET COUNT 188 10^3/uL (134-434); RDW 19.2 % (11.9-15.9); WHITE BLOOD COUNT 7.8 K/mm3 (4.0-10.0)
[2022-06-12 18:09] LABS: ALBUMIN 3.4 g/dl (3.4-5.0); BLOOD UREA NITROGEN 19.8 mg/dL (7-18); CALCIUM 9.2 mg/dL (8.5-10.1)
[2022-06-12 18:12] LABS: CREATININE 0.7 mg/dL (0.55-1.3)
[2022-06-12 18:14] LABS: BILIRUBIN,TOTAL 0.7 mg/dL (0.2-1); TOT PROT 7.2 g/dl (6.4-8.2)
[2022-06-12] MEDS ORDERED: MELATONIN 5 MG TABLETS PO SCH (22:00)
[2022-06-12] MEDS: DIVALPROEX SODIUM 500 MG TABLET E.C. PO SCH (22:24)
[2022-06-12] MEDS: MELATONIN 5 MG TABLETS PO SCH (22:25)
[2022-06-12] MEDS: THIAMINE HCL 100 MG TABLET (FP) PO SCH (22:25)
[2022-06-13] MEDS: methaDONE HCL 40 MG DISPERSABLE TABLET PO SCH (05:29)
[2022-06-13] MEDS: LORazepam 2 MG TABLET PO SCH ×4 (05:29→22:38)
[2022-06-13] MEDS: LORazepam 1 MG TABLET PO PRN ×3 (07:36→20:38)
[2022-06-13] MEDS: IBUPROFEN 600 MG TABLET (FP) PO PRN (09:25)
[2022-06-13] MEDS: PRENATAL VITAMINS W/ FOLIC ACID TABLET (FP) PO SCH (10:04)
[2022-06-13] MEDS: levETIRAcetam 500 MG TABLET (FP) PO SCH (10:04)
[2022-06-13] MEDS: DIVALPROEX SODIUM 500 MG TABLET E.C. PO SCH ×2 (10:04→22:38)
[2022-06-13] MEDS: ESCITALOPRAM OXALATE 20 MG TABLET PO SCH (10:04)
[2022-06-13] MEDS: NICOTINE 14 MG/24 HOURS TOPICAL PATCH TD SCH (10:04)
[2022-06-13] MEDS: PANTOPRAZOLE 20 MG TABLET PO SCH (10:04)
[2022-06-13] MEDS: METHOCARBAMOL 500 MG TABLET PO PRN ×2 (10:05→17:09)
[2022-06-13] MEDS: hydrOXYzine PAMOATE 25 MG CAPSULE (FP) PO PRN ×2 (13:09→17:08)
[2022-06-13] MEDS: NICOTINE POLACRILEX 2 MG GUM BUC PRN ×2 (13:41→15:36)
[2022-06-13] MEDS: LACTULOSE 20 GM/30 ML UDC (FOR ORAL USE ONLY) PO SCH ×2 (14:09→22:40)
[2022-06-13] MEDS: ALBUTEROL SO4 HFA INHALER IH PRN (20:20)
[2022-06-13] MEDS: IBUPROFEN 400 MG TABLET (FP) PO PRN (20:31)
[2022-06-13] MEDS: THIAMINE HCL 100 MG TABLET (FP) PO SCH (22:38)
[2022-06-13] MEDS: MELATONIN 5 MG TABLETS PO SCH (22:38)
[2022-06-14] MEDS: LORazepam 1 MG TABLET PO SCH ×4 (05:25→22:12)
[2022-06-14] MEDS: methaDONE HCL 40 MG DISPERSABLE TABLET PO SCH (05:25)
[2022-06-14] MEDS: LACTULOSE 20 GM/30 ML UDC (FOR ORAL USE ONLY) PO SCH ×3 (05:27→22:12)
[2022-06-14] MEDS: IBUPROFEN 600 MG TABLET (FP) PO PRN (05:33)
[2022-06-14] MEDS: LORazepam 1 MG TABLET PO PRN ×2 (07:47→19:40)
[2022-06-14] MEDS: METHOCARBAMOL 500 MG TABLET PO PRN ×2 (07:47→14:17)
[2022-06-14] MEDS: levETIRAcetam 500 MG TABLET (FP) PO SCH ×3 (10:15→22:11)
[2022-06-14] MEDS: PRENATAL VITAMINS W/ FOLIC ACID TABLET (FP) PO SCH (10:15)
[2022-06-14] MEDS: PANTOPRAZOLE 20 MG TABLET PO SCH (10:16)
[2022-06-14] MEDS: DIVALPROEX SODIUM 500 MG TABLET E.C. PO SCH ×2 (10:16→22:11)
[2022-06-14] MEDS: ESCITALOPRAM OXALATE 20 MG TABLET PO SCH (10:16)
[2022-06-14] MEDS: NICOTINE 14 MG/24 HOURS TOPICAL PATCH TD SCH (10:16)
[2022-06-14] MEDS: NICOTINE POLACRILEX 2 MG GUM BUC PRN ×3 (14:12→22:15)
[2022-06-14] MEDS: hydrOXYzine PAMOATE 25 MG CAPSULE (FP) PO PRN (14:16)
[2022-06-14] MEDS: MELATONIN 5 MG TABLETS PO SCH (22:11)
[2022-06-14] MEDS: THIAMINE HCL 100 MG TABLET (FP) PO SCH (22:12)
[2022-06-15] MEDS: LORazepam 0.5 MG TABLET PO PRN ×4 (02:03→19:53)
[2022-06-15] MEDS: METHOCARBAMOL 500 MG TABLET PO PRN ×3 (02:03→22:35)
[2022-06-15] MEDS: LORazepam 0.5 MG TABLET PO SCH ×4 (05:14→22:33)
[2022-06-15] MEDS: LACTULOSE 20 GM/30 ML UDC (FOR ORAL USE ONLY) PO SCH ×3 (05:14→22:31)
[2022-06-15] MEDS: methaDONE HCL 40 MG DISPERSABLE TABLET PO SCH (05:14)
[2022-06-15] MEDS: IBUPROFEN 600 MG TABLET (FP) PO PRN (05:16)
[2022-06-15] MEDS: NICOTINE POLACRILEX 2 MG GUM BUC PRN ×2 (09:02→14:19)
[2022-06-15] MEDS: PRENATAL VITAMINS W/ FOLIC ACID TABLET (FP) PO SCH (10:21)
[2022-06-15] MEDS: NICOTINE 14 MG/24 HOURS TOPICAL PATCH TD SCH (10:21)
[2022-06-15] MEDS: PANTOPRAZOLE 20 MG TABLET PO SCH (10:22)
[2022-06-15] MEDS: levETIRAcetam 500 MG TABLET (FP) PO SCH ×2 (10:22→22:32)
[2022-06-15] MEDS: ESCITALOPRAM OXALATE 20 MG TABLET PO SCH (10:22)
[2022-06-15] MEDS: DIVALPROEX SODIUM 500 MG TABLET E.C. PO SCH ×2 (10:22→22:32)
[2022-06-15] MEDS: hydrOXYzine PAMOATE 25 MG CAPSULE (FP) PO PRN ×2 (10:27→22:35)
[2022-06-15] MEDS: IBUPROFEN 400 MG TABLET (FP) PO PRN ×2 (12:36→17:47)
[2022-06-15] MEDS: ALBUTEROL SO4 HFA INHALER IH PRN (19:47)
[2022-06-15 21:04] VITALS: RESP 18
[2022-06-15] MEDS: THIAMINE HCL 100 MG TABLET (FP) PO SCH (22:32)
[2022-06-15] MEDS: MELATONIN 5 MG TABLETS PO SCH (22:33)
[2022-06-16] MEDS ORDERED: LORazepam 0.5 MG TABLET PO ONE (05:00)
[2022-06-16] MEDS: methaDONE HCL 40 MG DISPERSABLE TABLET PO SCH (05:13)
[2022-06-16] MEDS: LACTULOSE 20 GM/30 ML UDC (FOR ORAL USE ONLY) PO SCH (05:31)
[2022-06-16] MEDS: ALBUTEROL SO4 HFA INHALER IH PRN (06:05)
[2022-06-16] MEDS: IBUPROFEN 400 MG TABLET (FP) PO PRN (07:03)
[2022-06-16] MEDS: METHOCARBAMOL 500 MG TABLET PO PRN (07:04)
[2022-06-16] MEDS: ESCITALOPRAM OXALATE 20 MG TABLET PO SCH (09:01)
[2022-06-16] MEDS: PANTOPRAZOLE 20 MG TABLET PO SCH (09:01)
[2022-06-16] MEDS: levETIRAcetam 500 MG TABLET (FP) PO SCH (09:01)
[2022-06-16] MEDS: DIVALPROEX SODIUM 500 MG TABLET E.C. PO SCH (09:02)
[2022-06-16] MEDS: NICOTINE POLACRILEX 2 MG GUM BUC PRN (09:02)
[2022-06-16] MEDS: PRENATAL VITAMINS W/ FOLIC ACID TABLET (FP) PO SCH (09:02)
[2022-06-16] MEDS: NICOTINE 14 MG/24 HOURS TOPICAL PATCH TD SCH (09:04)
[2022-06-16 09:26] VITALS: BP 121/77; PULSE 86; TEMP 97.8
== END 2022-06-16 12:30 | disposition home or self-care (01) | DRG 773 ==
LOC: YASAS 11:43 → Y6N 14:05
PROVIDERS: ADMIT Allergy & Immunology; ATTEND Surgery
PROC: HZ2ZZZZ Detoxification Services for Substance Abuse Treatment (ICD-10-PCS; principal; 2022-06-12)
DX: F10.230 Alcohol dependence with withdrawal, uncomplicated (principal); F11.20 Opioid dependence, uncomplicated; F13.20 Sedative, hypnotic or anxiolytic dependence, uncomplicated; F14.20 Cocaine dependence, uncomplicated; F17.210 Nicotine dependence, cigarettes, uncomplicated; F19.280 Other psychoactive substance dependence with psychoactive substance-induced anxiety disorder; F19.282 Other psychoactive substance dependence with psychoactive substance-induced sleep disorder; F19.24 Other psychoactive substance dependence with psychoactive substance-induced mood disorder; F33.41 Major depressive disorder, recurrent, in partial remission; D50.9 Iron deficiency anemia, unspecified; G40.909 Epilepsy, unspecified, not intractable, without status epilepticus; I10 Essential (primary) hypertension; J45.909 Unspecified asthma, uncomplicated; N40.0 Benign prostatic hyperplasia without lower urinary tract symptoms; Z88.0 Allergy status to penicillin
CPT/HCPCS: 36415; 80053; 80177; 82140; 85027; 86780; 93005; 93010; C9803-CS; Q0162; U0003; U0005

== ENCOUNTER 2023-06-21 11:59 | Inpatient (IN) | payer OTHER ==
[2023-06-21 13:13] VITALS: BMI 39.5
[2023-06-21] MEDS ORDERED: BISMUTH SUBSALICYLATE 262 MG/15 ML BTL PO PRN (14:48)
[2023-06-21] MEDS ORDERED: MAGNESIUM HYDROX 2400MG/30ML ORAL SUSPENSION 30 ML CUP PO PRN (14:48)
[2023-06-21] MEDS ORDERED: NALOXONE HCL 0.4 MG/ML VIAL IM PRN (14:48)
[2023-06-21] MEDS ORDERED: DICYCLOMINE HCL 10 MG CAPSULE PO PRN (14:48)
[2023-06-21] MEDS ORDERED: ONDANSETRON *ODT* 4 MG TABLET SL PRN (14:48)
[2023-06-21] MEDS ORDERED: BENZONATATE 200 MG CAPSULE PO PRN (14:48)
[2023-06-21] MEDS ORDERED: guaiFENesin 600 MG TABLET.ER (FP) PO PRN (14:48)
[2023-06-21] MEDS ORDERED: MAG HYDROX/AL HYDROX/SIMETH 30 ML UNIT-DOSE CUP PO PRN (14:48)
[2023-06-21] MEDS ORDERED: POLYETHYLENE GLYCOL (HEALTHYLAX) 3350 17 GM PACKET PO PRN (14:48)
[2023-06-21] MEDS ORDERED: LOPERAMIDE HCL 2 MG CAPSULE PO PRN (14:48)
[2023-06-21] MEDS ORDERED: BENZOCAINE/MENTHOL (CHLORASEPTIC ) LOZENGE MM PRN (14:48)
[2023-06-21] MEDS ORDERED: NALOXONE HCL (KLOXXADO) 8 MG SPRAY NS PRN (14:48)
[2023-06-21] MEDS ORDERED: ALBUTEROL SO4 HFA INHALER IH PRN (14:53)
[2023-06-21] MEDS: PRENATAL VITAMINS W/ FOLIC ACID TABLET (FP) PO SCH (15:37)
[2023-06-21] MEDS: NICOTINE 21 MG/24 HOURS TOPICAL PATCH TD SCH (15:38)
[2023-06-21] MEDS ORDERED: METHOCARBAMOL 500 MG TABLET ONE (16:01)
[2023-06-21] MEDS ORDERED: LORazepam 2 MG TABLET ONE (16:01)
[2023-06-21] MEDS ORDERED: NICOTINE 21 MG/24 HOURS TOPICAL PATCH ONE (16:01)
[2023-06-21] MEDS ORDERED: PRENATAL VITAMINS W/ FOLIC ACID TABLET (FP) PO ONE (16:01)
[2023-06-21] MEDS: PANTOPRAZOLE 40 MG TABLET PO SCH (16:04)
[2023-06-21] MEDS: LORazepam 2 MG TABLET PO SCH (16:07)
[2023-06-21] MEDS: METHOCARBAMOL 500 MG TABLET PO PRN (16:08)
[2023-06-21] MEDS: IBUPROFEN 600 MG TABLET (FP) PO PRN (19:14)
[2023-06-21] MEDS: LORazepam 1 MG TABLET PO PRN (19:14)
[2023-06-21] MEDS: MELATONIN 5 MG TABLETS PO SCH (22:36)
[2023-06-21] MEDS: THIAMINE 100 MG TABLET PO SCH (22:36)
[2023-06-22] MEDS: ACETAMINOPHEN 325 MG TABLET (FP) PO PRN (06:03)
[2023-06-22] MEDS: hydrOXYzine PAMOATE 25 MG CAPSULE (FP) PO PRN (08:44)
[2023-06-22] MEDS: levETIRAcetam 500 MG TABLET (FP) PO SCH (09:03)
[2023-06-22] MEDS: methaDONE HCL 10 MG TABLET PO SCH (10:15)
[2023-06-22] MEDS: ESCITALOPRAM OXALATE 10 MG TABLET PO SCH (10:50)
[2023-06-22] MEDS: methaDONE 40 MG, methaDONE 30 MG PO SCH (10:55)
[2023-06-22 12:33] LABS: RBC 4.22 M/mm3 (4.00-5.60); WHITE BLOOD COUNT 6.6 K/mm3 (4.0-10.0)
[2023-06-22 12:34] LABS: HEMATOCRIT 32.2 % (35.4-49); HEMOGLOBIN 10.4 GM/dL (11.7-16.9); MCH 24.6 pg (25.7-33.7); MCHC 32.3 g/dl (32.0-35.9); MEAN CELL VOLUME 76.3 fl (80-96); MEAN PLT VOLUME 9.5 fl (7.5-11.1); PLATELET COUNT 299 10^3/uL (134-434); POTASSIUM 4.3 mmol/L (3.5-5.1); RDW 16.3 % (11.9-15.9)
[2023-06-22 12:38] LABS: CALCIUM 9.4 mg/dL (8.5-10.1)
[2023-06-22 12:39] LABS: ALBUMIN 3.6 g/dl (3.4-5.0); BLOOD UREA NITROGEN 22.1 mg/dL (7-18)
[2023-06-22 12:42] LABS: CREATININE 0.8 mg/dL (0.55-1.3)
[2023-06-22 12:43] LABS: BILIRUBIN,TOTAL 0.3 mg/dL (0.2-1); TOT PROT 7.5 g/dl (6.4-8.2)
[2023-06-22] MEDS: methaDONE HCL 10 MG TABLET PO ONE (15:30)
[2023-06-22] MEDS ORDERED: BACITRACIN ZINC 15 GM TUBE TOPICAL OINTMENT TP SCH (22:00)
[2023-06-22] MEDS: BACITRACIN 0.9 GM PACKET TP SCH (22:19)
[2023-06-22] MEDS: SUVOREXANT 10 MG TABLET PO PRN (22:22)
[2023-06-23] MEDS: LORazepam 1 MG TABLET PO SCH (05:35)
[2023-06-23] MEDS: methaDONE HCL 40 MG DISPERSABLE TABLET PO ONE (05:35)
[2023-06-23] MEDS: IBUPROFEN 400 MG TABLET (FP) PO PRN (05:36)
[2023-06-23] MEDS: LACTULOSE 20 GM/30 ML UDC (FOR ORAL USE ONLY) PO SCH (13:11)
[2023-06-24] MEDS: methaDONE 80 MG, methaDONE 10 MG PO ONE (05:39)
[2023-06-24] MEDS: LORazepam 0.5 MG TABLET PO SCH (05:39)
[2023-06-24] MEDS ORDERED: methaDONE HCL 10 MG TABLET PO ONE (06:00)
[2023-06-24] MEDS: LOSARTAN POTASSIUM 50 MG TABLET PO SCH (09:58)
[2023-06-24] MEDS: DIVALPROEX SODIUM 500 MG TABLET E.C. PO SCH (10:32)
[2023-06-24] MEDS: LORazepam 0.5 MG TABLET PO PRN (20:07)
[2023-06-24] MEDS: levETIRAcetam 500 MG TABLET (FP) PO SCH (22:18)
[2023-06-25] MEDS: methaDONE 80 MG, methaDONE 10 MG PO SCH (05:30)
[2023-06-25] MEDS: LORazepam 0.5 MG TABLET PO ONE (05:30)
[2023-06-25] MEDS ORDERED: methaDONE 80 MG, methaDONE 20 MG PO ONE (06:00)
[2023-06-25] MEDS ORDERED: methaDONE HCL 10 MG TABLET PO ONE (06:00)
[2023-06-25] MEDS ORDERED: methaDONE HCL 40 MG DISPERSABLE TABLET PO ONE (06:00)
[2023-06-25 09:25] VITALS: BP 111/61; PULSE 65; RESP 16; TEMP 96.9
[2023-06-26] MEDS ORDERED: methaDONE HCL 10 MG TABLET PO ONE (06:00)
[2023-06-26] MEDS ORDERED: methaDONE HCL 40 MG DISPERSABLE TABLET PO ONE ×2 (06:00→10:00)
[2023-06-27] MEDS ORDERED: methaDONE HCL 40 MG DISPERSABLE TABLET PO ONE ×3 (06:00→10:00)
== END 2023-06-25 10:27 | disposition home or self-care (01) | DRG 773 ==
LOC: YASAS 11:59 → Y6N 15:17
PROVIDERS: ADMIT Allergy & Immunology; ATTEND Surgery
PROC: HZ2ZZZZ Detoxification Services for Substance Abuse Treatment (ICD-10-PCS; principal; 2023-06-21)
DX: F11.23 Opioid dependence with withdrawal (principal); F10.230 Alcohol dependence with withdrawal, uncomplicated; F13.230 Sedative, hypnotic or anxiolytic dependence with withdrawal, uncomplicated; F14.20 Cocaine dependence, uncomplicated; F17.210 Nicotine dependence, cigarettes, uncomplicated; F33.41 Major depressive disorder, recurrent, in partial remission; G47.00 Insomnia, unspecified; I10 Essential (primary) hypertension; G40.909 Epilepsy, unspecified, not intractable, without status epilepticus; J45.909 Unspecified asthma, uncomplicated; N40.0 Benign prostatic hyperplasia without lower urinary tract symptoms; Z88.0 Allergy status to penicillin
CPT/HCPCS: 36415; 80053; 80305; 80307; 82140; 85027; 86780; 93005; 93010

== ENCOUNTER 2023-08-02 13:24 | Inpatient (IN) | payer OTHER ==
[2023-08-02 15:56] VITALS: BMI 37.5
[2023-08-02] MEDS ORDERED: DICYCLOMINE HCL 10 MG CAPSULE PO PRN (19:15)
[2023-08-02] MEDS ORDERED: guaiFENesin 600 MG TABLET.ER (FP) PO PRN (19:15)
[2023-08-02] MEDS ORDERED: MAGNESIUM HYDROX 2400MG/30ML ORAL SUSPENSION 30 ML CUP PO PRN (19:15)
[2023-08-02] MEDS ORDERED: BISMUTH SUBSALICYLATE 524 MG/30 ML PO PRN (19:15)
[2023-08-02] MEDS ORDERED: BENZOCAINE/MENTHOL (CHLORASEPTIC ) LOZENGE MM PRN (19:15)
[2023-08-02] MEDS ORDERED: NALOXONE (NARCAN) HCL 4 MG/0.1 ML SPRAY NS PRN (19:15)
[2023-08-02] MEDS ORDERED: POLYETHYLENE GLYCOL (HEALTHYLAX) 3350 17 GM PACKET PO PRN (19:15)
[2023-08-02] MEDS ORDERED: BENZONATATE 200 MG CAPSULE PO PRN (19:15)
[2023-08-02] MEDS ORDERED: IBUPROFEN 400 MG TABLET (FP) PO PRN (19:15)
[2023-08-02] MEDS ORDERED: NALOXONE HCL 0.4 MG/ML VIAL IM PRN (19:15)
[2023-08-02] MEDS ORDERED: levETIRAcetam 500 MG TABLET (FP) PO ONE (19:43)
[2023-08-02] MEDS ORDERED: diazePAM 5 MG TABLET ONE (19:43)
[2023-08-02] MEDS: levETIRAcetam 500 MG TABLET (FP) PO ONE (19:44)
[2023-08-02] MEDS: diazePAM 5 MG TABLET PO PRN (19:45)
[2023-08-02] MEDS: LOPERAMIDE HCL 2 MG CAPSULE PO PRN (21:03)
[2023-08-02] MEDS: MELATONIN 5 MG TABLETS PO SCH (22:18)
[2023-08-02] MEDS: THIAMINE 100 MG TABLET PO SCH (22:18)
[2023-08-02] MEDS: DIVALPROEX SODIUM 500 MG TABLET E.C. PO SCH (22:18)
[2023-08-02] MEDS: diazePAM 5 MG TABLET PO SCH (22:20)
[2023-08-02] MEDS: IBUPROFEN 600 MG TABLET (FP) PO PRN (22:20)
[2023-08-02] MEDS: METHOCARBAMOL 500 MG TABLET PO PRN (22:21)
[2023-08-03] MEDS: methaDONE HCL 10 MG TABLET PO SCH (09:46)
[2023-08-03] MEDS: LOSARTAN POTASSIUM 50 MG TABLET PO SCH (10:00)
[2023-08-03] MEDS: PRENATAL VITAMINS W/ FOLIC ACID TABLET (FP) PO SCH (10:00)
[2023-08-03] MEDS: methaDONE 40 MG, methaDONE 20 MG PO SCH (10:00)
[2023-08-03] MEDS: ACETAMINOPHEN 325 MG TABLET (FP) PO PRN (10:05)
[2023-08-03] MEDS: levETIRAcetam XR 500 MG TAB PO SCH (10:39)
[2023-08-03 12:44] LABS: HEMATOCRIT 29.8 % (35.4-49); HEMOGLOBIN 9.4 GM/dL (11.7-16.9); MCH 23.6 pg (25.7-33.7); MCHC 31.7 g/dl (32.0-35.9); MEAN CELL VOLUME 74.5 fl (80-96); MEAN PLT VOLUME 9.5 fl (7.5-11.1); PLATELET COUNT 270 10^3/uL (134-434); RDW 17.7 % (11.9-15.9); WHITE BLOOD COUNT 8.1 K/mm3 (4.0-10.0)
[2023-08-03 14:08] LABS: CHLORIDE 106 mmol/L (98-107); POTASSIUM 4.9 mmol/L (3.5-5.1); SODIUM 140 mmol/L (136-145)
[2023-08-03 14:13] LABS: BLOOD UREA NITROGEN 25.9 mg/dL (7-18)
[2023-08-03 14:14] LABS: ALBUMIN 3.3 g/dl (3.4-5.0); ANION GAP 6 mmol/L (4-13); CALCIUM 9.1 mg/dL (8.5-10.1); CO2 28 mmol/L (21-32); GLUCOSE,RANDOM 91 mg/dL (74-106)
[2023-08-03 14:15] LABS: CREATININE 0.8 mg/dL (0.55-1.3); SGPT/ALT 12 U/L (13-61)
[2023-08-03 14:17] LABS: SGOT/AST 13 U/L (15-37)
[2023-08-03 14:18] LABS: BILIRUBIN,TOTAL 0.3 mg/dL (0.2-1); TOT PROT 8.3 g/dl (6.4-8.2)
[2023-08-03 14:19] LABS: ALK PHOS 96 U/L (45-117)
[2023-08-03] MEDS: NICOTINE POLACRILEX 4 MG GUM BUC PRN (15:42)
[2023-08-03] MEDS: levETIRAcetam XR 750 MG TAB PO SCH (22:38)
[2023-08-04] MEDS: diazePAM 5 MG TABLET PO SCH (05:34)
[2023-08-04] MEDS: SULFAMETHOXAZOLE/TRIMETHOPRIM 800MG/160MG D.S. TABLET PO ONE (15:18)
[2023-08-04] MEDS: SULFAMETHOXAZOLE/TRIMETHOPRIM 800MG/160MG D.S. TABLET PO SCH (22:44)
[2023-08-05] MEDS: diazePAM 5 MG TABLET PO SCH (05:29)
[2023-08-05] MEDS: ONDANSETRON *ODT* 4 MG TABLET SL PRN (09:37)
[2023-08-05] MEDS: ALBUTEROL SO4 HFA INHALER IH PRN (10:20)
[2023-08-05] MEDS: MAG HYDROX/AL HYDROX/SIMETH 30 ML UNIT-DOSE CUP PO PRN (17:10)
[2023-08-05] MEDS: hydrOXYzine PAMOATE 25 MG CAPSULE (FP) PO PRN (19:02)
[2023-08-06] MEDS: diazePAM 5 MG TABLET PO ONE (05:26)
[2023-08-06] MEDS: BACITRACIN 0.9 GM PACKET TP ONE (21:03)
[2023-08-07] MEDS: BACITRACIN 0.9 GM PACKET TP SCH (09:08)
[2023-08-07 09:24] VITALS: BP 129/84; PULSE 105; RESP 18; TEMP 98.6
== END 2023-08-07 09:10 | disposition home or self-care (01) | DRG 773 ==
LOC: YASAS 13:24 → Y3N 19:30
PROVIDERS: ADMIT Allergy & Immunology; ATTEND Surgery
PROC: HZ2ZZZZ Detoxification Services for Substance Abuse Treatment (ICD-10-PCS; principal; 2023-08-02)
DX: F10.230 Alcohol dependence with withdrawal, uncomplicated (principal); F11.20 Opioid dependence, uncomplicated; F14.20 Cocaine dependence, uncomplicated; F17.210 Nicotine dependence, cigarettes, uncomplicated; F41.9 Anxiety disorder, unspecified; D64.9 Anemia, unspecified; G40.909 Epilepsy, unspecified, not intractable, without status epilepticus; L03.116 Cellulitis of left lower limb; Z88.0 Allergy status to penicillin
CPT/HCPCS: 36415; 80053; 80305; 80307; 85027; 86780; 93005; 93010; Q0162